=== PATIENT | male | born 1940 | race Caucasian/White ===

== ENCOUNTER 2021-02-16 10:04 | Inpatient (IN) | payer OTHER, SELFPAY ==
[2021-02-16] VITALS (31 sets, daily range): BP systolic 85–148; BP diastolic 50–78; PULSE 113–150; RESP 20–34; TEMP 37.3–39.1; O2SAT 93–97; BMI 27.1
--- NOTE | 2021-02-16 11:10 | DI.RAD.S_ITS ---
PROCEDURE: XR CHEST 1V INDICATIONS: Fever TECHNIQUE: One view of the chest was acquired. COMPARISON: None. FINDINGS: Surgical changes and devices: None. Lungs and pleura: Lungs are clear. No pleural effusions or pneumothorax. On bibasilar atelectasis and infiltrates greater on the left. Low lung volumes accentuate pulmonary interstitium and heart size. Mediastinum: Mediastinal contours appear normal. Heart size is normal. Bones and chest wall: No suspicious bony lesions. Overlying soft tissues appear unremarkable. IMPRESSION: Bibasilar atelectasis and or infiltrate greater on the left Approved by: Anmol Vasquez M.D. on 02/16/2021 at 11:53
[2021-02-16] MEDS: methylPREDNISolone 125 MG/2 ML VIAL IV (11:18)
[2021-02-16] MEDS: ACETAMINOPHEN 325 MG TABLET 975 MG PO (11:19)
--- NOTE | 2021-02-16 11:28 | ED.ALLEREA ---
HPI - Allergic Reaction <Winston Chavez MD - Last Filed: 02/27/21 07:05> General Chief complaint: Allergic Reaction Stated complaint: allergic reaction Time Seen by Provider: 02/16/21 10:31 Source: EMS Mode of arrival: EMS Limitations: altered mental status History of Present Illness HPI narrative: Patient brought in by ambulance from home. at bedside. Complains of fever and generalized hives and itching to the abdomen arms and face. Fever noted. No cough cold congestion. No nausea vomiting. Patient seen by urgent care this past Saturday for infection of the left ring finger. His ring has been removed by the urgent care this past Saturday. Over the weekend he states he has been packing would. Denies any skin injury or puncture wound to the skin. He did take a [employer] knife to the ring finger on Saturday to relieve some pressure. Seen by urgent care that day and started on Bactrim. Swelling has improved to the finger and hand. Today started with fever and itchy rash. Patient not toxic appearing. Benadryl 50 mg given prior to arrival by EMS. Related Data Home Medications Medication Instructions Recorded Confirmed amlodipine 5 mg tablet (Norvasc) 5 mg PO DAILY 02/16/21 02/16/21 lisinopril 20 mg tablet 20 mg PO DAILY 02/16/21 02/16/21 lovastatin 20 mg tablet 20 mg PO DAILY 02/16/21 02/16/21 metformin 500 mg tablet 500 mg PO BID 02/16/21 02/16/21 metoprolol tartrate 50 mg tablet 50 mg PO BID 02/16/21 02/16/21 Previous Rx's Medication Instructions Recorded aspirin 81 mg tablet,delayed 81 mg PO DAILY #90 tab 02/20/21 release dexamethasone 4 mg tablet 4 mg PO BIDWM #8 tab 02/20/21 doxycycline hyclate 100 mg tablet 100 mg PO BID #14 tab 02/20/21 famotidine 20 mg tablet (Pepcid AC) 20 mg PO BID #30 tab 02/20/21 insulin glargine 100 unit/mL (3 10 unit (0.1 mL) SUBCUT BID #1 ml 02/20/21 mL) subcutaneous pen (Lantus Solostar U-100 Insulin) insulin lispro 100 unit/mL 0 unit (0 mL) SUBCUT ACHS #1 ml 02/20/21 subcutaneous solution (Humalog U-100 Insulin) levofloxacin 250 mg tablet 750 mg PO Q24H #5 tab 02/20/21 melatonin 3 mg tablet 6 mg PO BEDTIME #90 tab 02/20/21 quetiapine 25 mg tablet 12.5 mg PO BEDTIME PRN #30 tab 02/20/21 trazodone 50 mg tablet 50 mg PO BEDTIME #90 tab 02/20/21 Allergies Allergy/AdvReac Type Severity Reaction Status Date / Time sulfamethoxazole Allergy Severe Hives Verified 02/16/21 10:56 [From Bactrim] trimethoprim [From Bactrim] Allergy Severe Hives Verified 02/16/21 10:56 Review of Systems <Winston Chavez MD - Last Filed: 02/27/21 07:05> Review of Systems Narrative: GENERAL: Denies chills, fatigue, malaise, positive fever, denies sweats. HEENT: Denies sinus pain, ear pain, sore throat RESPIRATORY: Denies dyspnea, cough CARDIOVASCULAR: Denies chest pain, palpitations GASTROINTESTINAL: Denies nausea, vomiting, abdominal pain : Denies dysuria, frequency, hematuria MUSCULOSKELETAL: Denies muscle or bony pain SKIN: Positive for right is and rash, benign skin lesions NEUROLOGIC: Denies weakness, numbness ROS Unobtainable: All systems reviewed & are unremarkable except as noted in HPI and below Patient History <Winston Chavez MD - Last Filed: 02/27/21 07:05> Social History household members: spouse Smoking Status: Former smoker alcohol intake: current Exam <Winston Chavez MD - Last Filed: 02/27/21 07:05> Narrative Exam Narrative: GENERAL: in no distress, not toxic not dyspneic HEAD: Normocephalic. EYES: Pupils equal round No scleral icterus. ENT: Mucous membranes moist. No drooling or tongue elevation NECK: Trachea midline. No stridor CARDIOVASCULAR: Regular rate and rhythm without murmurs, tachycardia RESPIRATORY: Clear to auscultation. Breath sounds equal bilaterally. No wheezes, rales, or rhonchi. Speaks full sentences GASTROINTESTINAL: Abdomen soft, non-tender EXTREMITIES: No gross deformities. Examination left hand. There is erythema and diffuse swelling of the ring finger. Able to flex and extend at the MCP/PIP and DIP joints. No pain out of proportion to exam. No volar tenderness to the finger. Able to fully extend the finger without pain. No red streaking to the hand. Mild edema to the dorsum of the hand. There is diffuse bruising ecchymosis to the finger. No necrotic tissue. No crepitus. BACK: No flank tenderness. NEURO: AOx4. SKIN: Warm and dry, there is diffuse hives on the abdomen and chest and arms. Face is erythematous. PSYCH: Not anxious, is cooperative Initial Vital Signs Initial Vital Signs: Vital Signs Temperature 102.3 F H 02/16/21 10:13 Pulse Rate 150 H 02/16/21 10:13 Respiratory Rate 20 02/16/21 10:13 Blood Pressure 116/63 02/16/21 10:13 Pulse Oximetry 96 02/16/21 10:13 <Mellisa Pruitt DO - Last Filed: 02/16/21 18:54> Initial Vital Signs Initial Vital Signs: Vital Signs Temperature 102.3 F H 02/16/21 10:13 Pulse Rate 150 H 02/16/21 10:13 Respiratory Rate 20 02/16/21 10:13 Blood Pressure 116/63 02/16/21 10:13 Pulse Oximetry 96 02/16/21 10:13 Course <Winston Chavez MD - Last Filed: 02/27/21 07:05> Course Course Narrative: 12:00 p.[address].. Sign out to Dr Pruitt, pt will need admit for IV antibiotics Orders Ordered: Discontinued Medications Acetaminophen (Acetaminophen 325 Mg Tablet) 975 mg PO NOW ONE Stop: 02/16/21 11:10 Last Admin: 02/16/21 11:19 Dose: 975 mg Documented by: ROLO Acetaminophen (Acetaminophen 325 Mg Tablet) 650 mg PO Q6HR PRN PRN Reason: Fever/Mild Pain (1-3) Last Admin: 02/18/21 00:27 Dose: 650 mg Documented by: Admin: 02/17/21 08:11 Dose: 650 mg Documented by: Admin: 02/17/21 00:29 Dose: 650 mg Documented by: Admin: 02/16/21 18:19 Dose: 650 mg Documented by: KARRI Aspirin (Aspirin Ec 81 Mg Tablet) 81 mg PO DAILY [facility] Last Admin: 02/20/21 08:19 Dose: 81 mg Documented by: LUIS Atorvastatin Calcium (Atorvastatin 20 Mg Tablet) 20 mg PO BEDTIME [facility] Dexamethasone (Dexamethasone 4 Mg Tablet) 4 mg PO BIDWM [facility] Diltiazem HCl (Diltiazem 5 Mg/Ml Sdv) 15 mg IV NOW ONE Stop: 02/17/21 09:19 Last Admin: 02/17/21 09:30 Dose: 15 mg Documented by: BRIAN Diphenhydramine HCl (Diphenhydramine 50 Mg/Ml Vial) 25 mg IV NOW ONE Stop: 02/16/21 14:07 Last Admin: 02/16/21 14:13 Dose: 25 mg Documented by: JIMI Doxycycline Hyclate (Doxycycline Hyclate 100 Mg Tablet) 100 mg PO BID [facility] Stop: 02/26/21 09:01 Last Admin: 02/20/21 08:20 Dose: 100 mg Documented by: Admin: 02/19/21 21:28 Dose: 100 mg Documented by: ROXANA Famotidine (Famotidine 20 Mg/2 Ml Vial) 20 mg IV DAILY [facility] Last Admin: 02/17/21 08:10 Dose: 20 mg Documented by: DANIEL Famotidine (Famotidine 20 Mg/2 Ml Vial) 20 mg IV BID [facility] Last Admin: 02/19/21 08:38 Dose: 20 mg Documented by: Admin: 02/18/21 20:43 Dose: 20 mg Documented by: Admin: 02/18/21 08:36 Dose: 20 mg Documented by: Admin: 02/17/21 19:21 Dose: Not Given Documented by: ADRIANA Famotidine (Famotidine 20 Mg/2 Ml Vial) 20 mg IV NOW ONE Stop: 02/17/21 19:01 Last Admin: 02/17/21 18:58 Dose: 20 mg Documented by: ADRIANA Famotidine (Famotidine 20 Mg Tablet) 20 mg PO BID [facility] Last Admin: 02/20/21 08:20 Dose: 20 mg Documented by: Admin: 02/19/21 21:29 Dose: 20 mg Documented by: ROXANA Furosemide (Furosemide 40 Mg/4 Ml Vial) 40 mg IV NOW ONE Stop: 02/17/21 09:00 Last Admin: 02/17/21 09:33 Dose: 40 mg Documented by: BRIAN Heparin Sodium (Porcine) (Heparin 5,000 Unit/Ml Vial) 5,000 unit SUBCUT Q8HR [facility] Last Admin: 02/20/21 05:18 Dose: 5,000 unit Documented by: Admin: 02/19/21 21:27 Dose: 5,000 unit Documented by: Admin: 02/19/21 16:32 Dose: 5,000 unit Documented by: Admin: 02/19/21 05:03 Dose: 5,000 unit Documented by: Admin: 02/18/21 20:46 Dose: 5,000 unit Documented by: Admin: 02/18/21 15:39 Dose: 5,000 unit Documented by: Admin: 02/18/21 06:22 Dose: 5,000 unit Documented by: Admin: 02/17/21 22:15 Dose: 5,000 unit Documented by: Admin: 02/17/21 15:35 Dose: 5,000 unit Documented by: Admin: 02/17/21 05:37 Dose: 5,000 unit Documented by: Admin: 02/16/21 21:17 Dose: 5,000 unit Documented by: DICK Vancomycin HCl/Dextrose (Vancomycin) 2,000 mg in 400 mls @ 200 mls/hr IV NOW ONE Stop: 02/16/21 13:21 Last Admin: 02/16/21 11:51 Dose: Not Given Documented by: ROLO Vancomycin HCl/Dextrose (Vancomycin) 1,500 mg in 300 mls @ 200 mls/hr IV NOW ONE Stop: 02/16/21 13:21 Last Infusion: 02/16/21 14:47 Dose: 0 mls/hr Documented by: Admin: 02/16/21 12:27 Dose: 200 mls/hr Documented by: ROLO Sodium Chloride (Normal Saline 0.9%) 1,000 mls @ 1,000 mls/hr IV BOLUS ONE Stop: 02/16/21 13:10 Last Infusion: 02/16/21 13:31 Dose: 0 mls/hr Documented by: Admin: 02/16/21 12:27 Dose: 1,000 mls/hr Documented by: ROLO Ceftriaxone Sodium 1,000 mg/ (Sodium Chloride) 100 mls @ 200 mls/hr IV NOW ONE Stop: 02/16/21 12:39 Last Infusion: 02/16/21 15:04 Dose: 0 mls/hr Documented by: Admin: 02/16/21 14:50 Dose: 200 mls/hr Documented by: JIMI Sodium Chloride (Normal Saline 0.9%) 2,721.54 mls @ 907.18 mls/hr 30 ml/kg infuse over 3 hr (2721.54 ml) IV NOW ONE Stop: 02/16/21 16:08 Last Infusion: 02/16/21 15:42 Dose: 0 mls/hr Documented by: Infusion: 02/16/21 15:05 Dose: 0 mls/hr Documented by: Admin: 02/16/21 13:24 Dose: 907.18 mls/hr Documented by: ROLO Lactated Ringer's (Lactated Ringers) 1,000 mls @ 125 mls/hr IV CONT [facility] Last Admin: 02/17/21 10:18 Dose: 125 mls/hr Documented by: Infusion: 02/17/21 09:30 Dose: 125 mls/hr Documented by: Admin: 02/17/21 01:30 Dose: 125 mls/hr Documented by: Infusion: 02/17/21 00:44 Dose: 125 mls/hr Documented by: Admin: 02/16/21 16:44 Dose: 125 mls/hr Documented by: KARRI Linezolid (Zyvox) 600 mg in 300 mls @ 600 mls/hr IV Q12H [facility] Last Infusion: 02/19/21 06:54 Dose: 0 mls/hr Documented by: Admin: 02/19/21 05:02 Dose: 600 mls/hr Documented by: Infusion: 02/18/21 20:32 Dose: 0 mls/hr Documented by: Admin: 02/18/21 16:49 Dose: 600 mls/hr Documented by: Infusion: 02/18/21 07:58 Dose: 0 mls/hr Documented by: Admin: 02/18/21 06:22 Dose: 600 mls/hr Documented by: Infusion: 02/17/21 20:13 Dose: 0 mls/hr Documented by: Admin: 02/17/21 18:57 Dose: 600 mls/hr Documented by: Infusion: 02/17/21 10:51 Dose: 0 mls/hr Documented by: Admin: 02/17/21 05:37 Dose: 600 mls/hr Documented by: Infusion: 02/16/21 20:38 Dose: 0 mls/hr Documented by: Admin: 02/16/21 18:09 Dose: 600 mls/hr Documented by: KARRI Ceftriaxone Sodium 1,000 mg/ (Sodium Chloride) 100 mls @ 200 mls/hr IV Q24H [facility] Last Infusion: 02/19/21 12:24 Dose: 0 mls/hr Documented by: Admin: 02/19/21 09:37 Dose: 200 mls/hr Documented by: Infusion: 02/18/21 15:39 Dose: 0 mls/hr Documented by: Admin: 02/18/21 09:50 Dose: 200 mls/hr Documented by: Infusion: 02/17/21 13:00 Dose: 0 mls/hr Documented by: Admin: 02/17/21 12:30 Dose: 200 mls/hr Documented by: ADRIANA Metronidazole (Flagyl) 500 mg in 100 mls @ 100 mls/hr IV Q8H [facility] Last Infusion: 02/19/21 12:24 Dose: 0 mls/hr Documented by: Admin: 02/19/21 08:36 Dose: 100 mls/hr Documented by: Infusion: 02/19/21 00:34 Dose: 0 mls/hr Documented by: Admin: 02/18/21 23:07 Dose: 100 mls/hr Documented by: Infusion: 02/18/21 16:53 Dose: 0 mls/hr Documented by: Admin: 02/18/21 15:38 Dose: 100 mls/hr Documented by: Infusion: 02/18/21 09:37 Dose: 0 mls/hr Documented by: Admin: 02/18/21 08:34 Dose: 100 mls/hr Documented by: Infusion: 02/18/21 01:57 Dose: 0 mls/hr Documented by: Admin: 02/18/21 00:21 Dose: 100 mls/hr Documented by: Infusion: 02/17/21 18:56 Dose: 0 mls/hr Documented by: Admin: 02/17/21 17:36 Dose: 100 mls/hr Documented by: Infusion: 02/17/21 10:19 Dose: 0 mls/hr Documented by: Admin: 02/17/21 08:10 Dose: 100 mls/hr Documented by: DANIEL Diltiazem HCl 125 mg/ Dextrose 125 mls @ 5 mls/hr IV TITRATE [facility]; Protocol Last Titration: 02/17/21 22:11 Dose: 0 mg/hr, 0 mls/hr Documented by: Titration: 02/17/21 20:14 Dose: 5 mg/hr, 5 mls/hr Documented by: Titration: 02/17/21 18:56 Dose: 12 mg/hr, 12 mls/hr Documented by: Titration: 02/17/21 10:11 Dose: 10 mg/hr, 10 mls/hr Documented by: NAJMAEWARIANNA Admin: 02/17/21 10:01 Dose: 5 mg/hr, 5 mls/hr Documented by: ADRIANA Lactated Ringer's (Lactated Ringers) 1,000 mls @ 100 mls/hr IV CONT [facility] Last Infusion: 02/19/21 08:45 Dose: 0 mls/hr Documented by: Admin: 02/19/21 03:38 Dose: 100 mls/hr Documented by: Infusion: 02/19/21 01:41 Dose: 100 mls/hr Documented by: Admin: 02/18/21 15:41 Dose: 100 mls/hr Documented by: Infusion: 02/18/21 15:41 Dose: 100 mls/hr Documented by: Admin: 02/18/21 06:22 Dose: 100 mls/hr Documented by: Infusion: 02/18/21 04:53 Dose: 100 mls/hr Documented by: Admin: 02/17/21 18:53 Dose: 100 mls/hr Documented by: ADRIANA Magnesium Sulfate (Magnesium Sulfate) 2 gm in 50 mls @ 25 mls/hr IV NOW ONE Stop: 02/17/21 22:20 Last Infusion: 02/17/21 22:51 Dose: 0 mls/hr Documented by: MACKENZIE Cosigned by: LISBETH Admin: 02/17/21 20:41 Dose: 25 mls/hr Documented by: MACKENZIE Mishra by: WOODY Insulin Glargine (Insulin Glargine 100 Unit/Ml 3ml Pen) 10 unit SUBCUT BID [facility] Last Admin: 02/20/21 08:20 Dose: 10 unit Documented by: LUIS Cosigned by: SCOOBY Admin: 02/19/21 21:23 Dose: 10 unit Documented by: ROXANA Plascenciaigned by: ASHISH Insulin Human Lispro (Insulin Lispro 100 Unit/Ml 3ml Vial) 0 unit SUBCUT ACHS [facility]; Protocol Last Admin: 02/20/21 08:18 Dose: 1 unit Documented by: LUIS Mishra by: SCOOBY Admin: 02/19/21 21:25 Dose: 1 unit Documented by: ROXANA Mishra by: ASHISH Admin: 02/19/21 16:33 Dose: 2 unit Documented by: LUIS Plascenciaigned by: CHLOE Admin: 02/19/21 12:25 Dose: 2 unit Documented by: LUIS Mishra by: CHLOE Admin: 02/19/21 08:35 Dose: 1 unit Documented by: LUIS Mishra by: CHLOE Admin: 02/18/21 20:43 Dose: 1 unit Documented by: ROXANA Mishra by: ASHISH Admin: 02/18/21 16:47 Dose: 3 unit Documented by: LUIS Mishra by: CHLOE Admin: 02/18/21 11:58 Dose: 2 unit Documented by: LUIS Mishra by: CHLOE Admin: 02/18/21 09:45 Dose: 2 unit Documented by: LUIS Mishra by: CHLOE Admin: 02/17/21 20:42 Dose: 2 unit Documented by: MACKENZIE Cosigned by: WOODY Admin: 02/17/21 17:37 Dose: 3 unit Documented by: ADRIANA Cosigned by: YANETH Admin: 02/17/21 12:18 Dose: 2 unit Documented by: ADRIANA Cosigned by: YANETH Admin: 02/17/21 08:11 Dose: 2 unit Documented by: DANIEL Cosigned by: TATIANA Admin: 02/16/21 20:36 Dose: 2 unit Documented by: DICK Cosigned by: ED Admin: 02/16/21 17:41 Dose: 2 unit Documented by: KARRI Cosigned by: TOM Labetalol HCl (Labetalol 20 Mg/4 Ml Syringe) 10 mg IV NOW ONE Stop: 02/16/21 18:49 Last Admin: 02/16/21 18:58 Dose: 10 mg Documented by: KARRI Levofloxacin (Levofloxacin 250 Mg Tablet) 750 mg PO Q24H [facility] Stop: 02/25/21 15:01 Last Admin: 02/19/21 16:33 Dose: 750 mg Documented by: LUIS Lisinopril (Lisinopril 5 Mg Tablet) 5 mg PO DAILY [facility] Last Admin: 02/20/21 08:20 Dose: 5 mg Documented by: LUIS Lorazepam (Lorazepam 0.5 Mg Tablet) 0.5 mg PO BID [facility] Last Admin: 02/20/21 08:20 Dose: 0.5 mg Documented by: Admin: 02/19/21 21:29 Dose: 0.5 mg Documented by: Admin: 02/19/21 09:37 Dose: 0.5 mg Documented by: Admin: 02/18/21 20:47 Dose: 0.5 mg Documented by: Admin: 02/18/21 11:19 Dose: Not Given Documented by: Admin: 02/17/21 20:41 Dose: 0.5 mg Documented by: Admin: 02/17/21 12:30 Dose: 0.5 mg Documented by: ADRIANA Magnesium Chloride (Magnesium Chloride 64 Mg Tablet) 128 mg PO NOW ONE Stop: 02/17/21 17:24 Last Admin: 02/17/21 17:36 Dose: 128 mg Documented by: ADRIANA Melatonin (Melatonin 3 Mg Tablet) 6 mg PO BEDTIME [facility] Last Admin: 02/19/21 21:28 Dose: 6 mg Documented by: ROXANA Methylprednisolone (Methylprednisolone 125 Mg/2 Ml Vial) 125 mg IV NOW ONE Stop: 02/16/21 11:10 Last Admin: 02/16/21 11:18 Dose: 125 mg Documented by: ROLO Methylprednisolone (Methylprednisolone 125 Mg/2 Ml Vial) 125 mg IV DAILY [facility] Last Admin: 02/17/21 08:10 Dose: 125 mg Documented by: DANIEL Methylprednisolone (Methylprednisolone 125 Mg/2 Ml Vial) 125 mg IV NOW ONE Stop: 02/17/21 09:00 Last Admin: 02/17/21 10:22 Dose: 125 mg Documented by: ADRIANA Methylprednisolone (Methylprednisolone 125 Mg/2 Ml Vial) 250 mg IV DAILY [facility] Stop: 02/20/21 08:59 Last Admin: 02/19/21 08:36 Dose: 250 mg Documented by: Admin: 02/18/21 08:35 Dose: 250 mg Documented by: LUIS Metoprolol Succinate (Metoprolol Er 25 Mg Tablet) 25 mg PO NOW ONE Stop: 02/16/21 17:49 Last Admin: 02/16/21 18:09 Dose: 25 mg Documented by: KARRI Metoprolol Tartrate (Metoprolol Ir 50 Mg Tablet) 50 mg PO BID [facility] Last Admin: 02/20/21 08:19 Dose: 50 mg Documented by: Admin: 02/19/21 21:28 Dose: 50 mg Documented by: Admin: 02/19/21 09:37 Dose: 50 mg Documented by: Admin: 02/18/21 20:47 Dose: 50 mg Documented by: Admin: 02/18/21 11:58 Dose: 50 mg Documented by: Admin: 02/17/21 20:41 Dose: 50 mg Documented by: MACKENZIE Ondansetron HCl (Ondansetron 4 Mg/2 Ml Inj) 4 mg IV Q6HR PRN PRN Reason: Nausea And Vomiting Last Admin: 02/18/21 12:47 Dose: 4 mg Documented by: CHLOE Quetiapine Fumarate (Quetiapine 25 Mg Tablet) 12.5 mg PO BEDTIME PRN PRN Reason: Sleep Sodium Chloride (Sodium Chloride 0.9% Flush) 10 ml IV PRN PRN PRN Reason: Flush Sodium Chloride (Sodium Chloride 0.9% Flush) 10 ml IV BID [facility] Last Admin: 02/20/21 08:21 Dose: 10 ml Documented by: Admin: 02/19/21 21:29 Dose: 10 ml Documented by: Admin: 02/19/21 08:39 Dose: 10 ml Documented by: Admin: 02/18/21 20:47 Dose: 10 ml Documented by: Admin: 02/18/21 08:32 Dose: Not Given Documented by: Admin: 02/17/21 20:52 Dose: Not Given Documented by: Admin: 02/17/21 10:01 Dose: Not Given Documented by: Admin: 02/16/21 21:24 Dose: 10 ml Documented by: DICK Trazodone HCl (Trazodone 50 Mg Tablet) 50 mg PO BEDTIME [facility] Last Admin: 02/19/21 21:28 Dose: 50 mg Documented by: ROXANA Vancomycin HCl (Vancomycin Per Pharmacy) 1 request [facility] NOW ONE Stop: 02/16/21 11:11 Last Admin: 02/16/21 11:36 Dose: 1 request Documented by: ROLO Zolpidem Tartrate (Zolpidem 5 Mg Tablet) 10 mg PO BEDTIME PRN PRN Reason: Sleep Last Admin: 02/18/21 23:07 Dose: 10 mg Documented by: Admin: 02/18/21 02:16 Dose: 10 mg Documented by: MACKENZIE Vital Signs Vital signs: Vital Signs - 8 hr 02/16/21 11:00 02/16/21 11:19 02/16/21 11:30 Temperature 101.8 F H Pulse Rate 144 H 147 H Respiratory Rate 26 H 28 H Blood Pressure 112/68 133/58 L Pulse Oximetry 96 96 02/16/21 12:00 02/16/21 12:01 02/16/21 12:27 Temperature 99.2 F Pulse Rate 147 H 149 H Respiratory Rate 33 H 34 H Blood Pressure 106/66 Pulse Oximetry 95 95 02/16/21 12:30 02/16/21 13:03 02/16/21 13:05 Temperature Pulse Rate 130 H 134 H 130 H Respiratory Rate 22 24 24 Blood Pressure 126/69 86/50 L 85/55 L Pulse Oximetry 95 94 95 02/16/21 13:06 02/16/21 13:20 02/16/21 13:30 Temperature Pulse Rate 130 H 117 H 114 H Respiratory Rate 24 27 H 26 H Blood Pressure 88/56 L 91/54 L 87/52 L Pulse Oximetry 94 95 94 02/16/21 13:40 02/16/21 13:50 02/16/21 14:00 Temperature Pulse Rate 113 H 115 H 116 H Respiratory Rate 24 29 H 28 H Blood Pressure 91/53 L 122/64 119/59 L Pulse Oximetry 93 96 97 02/16/21 14:10 02/16/21 14:20 02/16/21 14:30 Temperature Pulse Rate 115 H 120 H 120 H Respiratory Rate 28 H Blood Pressure 120/63 125/60 96/60 Pulse Oximetry 95 95 02/16/21 14:41 02/16/21 14:50 Temperature Pulse Rate 119 H 120 H Respiratory Rate 26 H 20 Blood Pressure 137/60 129/59 L Pulse Oximetry 95 94 <Mellisa Pruitt, - Last Filed: 02/16/21 18:54> Orders Ordered: Discontinued Medications Acetaminophen (Acetaminophen 325 Mg Tablet) 975 mg PO NOW ONE Stop: 02/16/21 11:10 Last Admin: 02/16/21 11:19 Dose: 975 mg Documented by: ROLO Acetaminophen (Acetaminophen 325 Mg Tablet) 650 mg PO Q6HR PRN PRN Reason: Fever/Mild Pain (1-3) Last Admin: 02/18/21 00:27 Dose: 650 mg Documented by: Admin: 02/17/21 08:11 Dose: 650 mg Documented by: Admin: 02/17/21 00:29 Dose: 650 mg Documented by: Admin: 02/16/21 18:19 Dose: 650 mg Documented by: KARRI Aspirin (Aspirin Ec 81 Mg Tablet) 81 mg PO DAILY [facility] Last Admin: 02/20/21 08:19 Dose: 81 mg Documented by: LUIS Atorvastatin Calcium (Atorvastatin 20 Mg Tablet) 20 mg PO BEDTIME [facility] Dexamethasone (Dexamethasone 4 Mg Tablet) 4 mg PO BIDWM [facility] Diltiazem HCl (Diltiazem 5 Mg/Ml Sdv) 15 mg IV NOW ONE Stop: 02/17/21 09:19 Last Admin: 02/17/21 09:30 Dose: 15 mg Documented by: BRIAN Diphenhydramine HCl (Diphenhydramine 50 Mg/Ml Vial) 25 mg IV NOW ONE Stop: 02/16/21 14:07 Last Admin: 02/16/21 14:13 Dose: 25 mg Documented by: JIMI Doxycycline Hyclate (Doxycycline Hyclate 100 Mg Tablet) 100 mg PO BID [facility] Stop: 02/26/21 09:01 Last Admin: 02/20/21 08:20 Dose: 100 mg Documented by: Admin: 02/19/21 21:28 Dose: 100 mg Documented by: ROXANA Famotidine (Famotidine 20 Mg/2 Ml Vial) 20 mg IV DAILY [facility] Last Admin: 02/17/21 08:10 Dose: 20 mg Documented by: DANIEL Famotidine (Famotidine 20 Mg/2 Ml Vial) 20 mg IV BID [facility] Last Admin: 02/19/21 08:38 Dose: 20 mg Documented by: Admin: 02/18/21 20:43 Dose: 20 mg Documented by: Admin: 02/18/21 08:36 Dose: 20 mg Documented by: Admin: 02/17/21 19:21 Dose: Not Given Documented by: ADRIANA Famotidine (Famotidine 20 Mg/2 Ml Vial) 20 mg IV NOW ONE Stop: 02/17/21 19:01 Last Admin: 02/17/21 18:58 Dose: 20 mg Documented by: ADRIANA Famotidine (Famotidine 20 Mg Tablet) 20 mg PO BID [facility] Last Admin: 02/20/21 08:20 Dose: 20 mg Documented by: Admin: 02/19/21 21:29 Dose: 20 mg Documented by: ROXANA Furosemide (Furosemide 40 Mg/4 Ml Vial) 40 mg IV NOW ONE Stop: 02/17/21 09:00 Last Admin: 02/17/21 09:33 Dose: 40 mg Documented by: BRIAN Heparin Sodium (Porcine) (Heparin 5,000 Unit/Ml Vial) 5,000 unit SUBCUT Q8HR [facility] Last Admin: 02/20/21 05:18 Dose: 5,000 unit Documented by: Admin: 02/19/21 21:27 Dose: 5,000 unit Documented by: Admin: 02/19/21 16:32 Dose: 5,000 unit Documented by: Admin: 02/19/21 05:03 Dose: 5,000 unit Documented by: Admin: 02/18/21 20:46 Dose: 5,000 unit Documented by: Admin: 02/18/21 15:39 Dose: 5,000 unit Documented by: Admin: 02/18/21 06:22 Dose: 5,000 unit Documented by: Admin: 02/17/21 22:15 Dose: 5,000 unit Documented by: Admin: 02/17/21 15:35 Dose: 5,000 unit Documented by: Admin: 02/17/21 05:37 Dose: 5,000 unit Documented by: Admin: 02/16/21 21:17 Dose: 5,000 unit Documented by: DICK Vancomycin HCl/Dextrose (Vancomycin) 2,000 mg in 400 mls @ 200 mls/hr IV NOW ONE Stop: 02/16/21 13:21 Last Admin: 02/16/21 11:51 Dose: Not Given Documented by: ROLO Vancomycin HCl/Dextrose (Vancomycin) 1,500 mg in 300 mls @ 200 mls/hr IV NOW ONE Stop: 02/16/21 13:21 Last Infusion: 02/16/21 14:47 Dose: 0 mls/hr Documented by: Admin: 02/16/21 12:27 Dose: 200 mls/hr Documented by: ROLO Sodium Chloride (Normal Saline 0.9%) 1,000 mls @ 1,000 mls/hr IV BOLUS ONE Stop: 02/16/21 13:10 Last Infusion: 02/16/21 13:31 Dose: 0 mls/hr Documented by: Admin: 02/16/21 12:27 Dose: 1,000 mls/hr Documented by: ROLO Ceftriaxone Sodium 1,000 mg/ (Sodium Chloride) 100 mls @ 200 mls/hr IV NOW ONE Stop: 02/16/21 12:39 Last Infusion: 02/16/21 15:04 Dose: 0 mls/hr Documented by: Admin: 02/16/21 14:50 Dose: 200 mls/hr Documented by: JIMI Sodium Chloride (Normal Saline 0.9%) 2,721.54 mls @ 907.18 mls/hr 30 ml/kg infuse over 3 hr (2721.54 ml) IV NOW ONE Stop: 02/16/21 16:08 Last Infusion: 02/16/21 15:42 Dose: 0 mls/hr Documented by: Infusion: 02/16/21 15:05 Dose: 0 mls/hr Documented by: Admin: 02/16/21 13:24 Dose: 907.18 mls/hr Documented by: ROLO Lactated Ringer's (Lactated Ringers) 1,000 mls @ 125 mls/hr IV CONT MAURY Last Admin: 02/17/21 10:18 Dose: 125 mls/hr Documented by: Infusion: 02/17/21 09:30 Dose: 125 mls/hr Documented by: Admin: 02/17/21 01:30 Dose: 125 mls/hr Documented by: Infusion: 02/17/21 00:44 Dose: 125 mls/hr Documented by: Admin: 02/16/21 16:44 Dose: 125 mls/hr Documented by: KARRI Linezolid (Zyvox) 600 mg in 300 mls @ 600 mls/hr IV Q12H [facility] Last Infusion: 02/19/21 06:54 Dose: 0 mls/hr Documented by: Admin: 02/19/21 05:02 Dose: 600 mls/hr Documented by: Infusion: 02/18/21 20:32 Dose: 0 mls/hr Documented by: Admin: 02/18/21 16:49 Dose: 600 mls/hr Documented by: Infusion: 02/18/21 07:58 Dose: 0 mls/hr Documented by: Admin: 02/18/21 06:22 Dose: 600 mls/hr Documented by: Infusion: 02/17/21 20:13 Dose: 0 mls/hr Documented by: Admin: 02/17/21 18:57 Dose: 600 mls/hr Documented by: Infusion: 02/17/21 10:51 Dose: 0 mls/hr Documented by: Admin: 02/17/21 05:37 Dose: 600 mls/hr Documented by: Infusion: 02/16/21 20:38 Dose: 0 mls/hr Documented by: Admin: 02/16/21 18:09 Dose: 600 mls/hr Documented by: KARRI Ceftriaxone Sodium 1,000 mg/ (Sodium Chloride) 100 mls @ 200 mls/hr IV Q24H [facility] Last Infusion: 02/19/21 12:24 Dose: 0 mls/hr Documented by: Admin: 02/19/21 09:37 Dose: 200 mls/hr Documented by: Infusion: 02/18/21 15:39 Dose: 0 mls/hr Documented by: Admin: 02/18/21 09:50 Dose: 200 mls/hr Documented by: Infusion: 02/17/21 13:00 Dose: 0 mls/hr Documented by: Admin: 02/17/21 12:30 Dose: 200 mls/hr Documented by: ADRIANA Metronidazole (Flagyl) 500 mg in 100 mls @ 100 mls/hr IV Q8H [facility] Last Infusion: 02/19/21 12:24 Dose: 0 mls/hr Documented by: Admin: 02/19/21 08:36 Dose: 100 mls/hr Documented by: Infusion: 02/19/21 00:34 Dose: 0 mls/hr Documented by: Admin: 02/18/21 23:07 Dose: 100 mls/hr Documented by: Infusion: 02/18/21 16:53 Dose: 0 mls/hr Documented by: Admin: 02/18/21 15:38 Dose: 100 mls/hr Documented by: Infusion: 02/18/21 09:37 Dose: 0 mls/hr Documented by: Admin: 02/18/21 08:34 Dose: 100 mls/hr Documented by: Infusion: 02/18/21 01:57 Dose: 0 mls/hr Documented by: Admin: 02/18/21 00:21 Dose: 100 mls/hr Documented by: Infusion: 02/17/21 18:56 Dose: 0 mls/hr Documented by: Admin: 02/17/21 17:36 Dose: 100 mls/hr Documented by: Infusion: 02/17/21 10:19 Dose: 0 mls/hr Documented by: Admin: 02/17/21 08:10 Dose: 100 mls/hr Documented by: DANIEL Diltiazem HCl 125 mg/ Dextrose 125 mls @ 5 mls/hr IV TITRATE [facility]; Protocol Last Titration: 02/17/21 22:11 Dose: 0 mg/hr, 0 mls/hr Documented by: Titration: 02/17/21 20:14 Dose: 5 mg/hr, 5 mls/hr Documented by: Titration: 02/17/21 18:56 Dose: 12 mg/hr, 12 mls/hr Documented by: Titration: 02/17/21 10:11 Dose: 10 mg/hr, 10 mls/hr Documented by: Admin: 02/17/21 10:01 Dose: 5 mg/hr, 5 mls/hr Documented by: ADRIANA Lactated Ringer's (Lactated Ringers) 1,000 mls @ 100 mls/hr IV CONT [facility] Last Infusion: 02/19/21 08:45 Dose: 0 mls/hr Documented by: Admin: 02/19/21 03:38 Dose: 100 mls/hr Documented by: Infusion: 02/19/21 01:41 Dose: 100 mls/hr Documented by: Admin: 02/18/21 15:41 Dose: 100 mls/hr Documented by: Infusion: 02/18/21 15:41 Dose: 100 mls/hr Documented by: Admin: 02/18/21 06:22 Dose: 100 mls/hr Documented by: Infusion: 02/18/21 04:53 Dose: 100 mls/hr Documented by: Admin: 02/17/21 18:53 Dose: 100 mls/hr Documented by: ADRIANA Magnesium Sulfate (Magnesium Sulfate) 2 gm in 50 mls @ 25 mls/hr IV NOW ONE Stop: 02/17/21 22:20 Last Infusion: 02/17/21 22:51 Dose: 0 mls/hr Documented by: MACKENZIE Cosigned by: LISBETH Admin: 02/17/21 20:41 Dose: 25 mls/hr Documented by: MACKENZIE Cosigned by: WOODY Insulin Glargine (Insulin Glargine 100 Unit/Ml 3ml Pen) 10 unit SUBCUT BID [facility] Last Admin: 02/20/21 08:20 Dose: 10 unit Documented by: LUIS Cosigned by: SCOOBY Admin: 02/19/21 21:23 Dose: 10 unit Documented by: ROXANA Cosigned by: ASHIHS Insulin Human Lispro (Insulin Lispro 100 Unit/Ml 3ml Vial) 0 unit SUBCUT ACHS [facility]; Protocol Last Admin: 02/20/21 08:18 Dose: 1 unit Documented by: LUIS Cosigned by: SCOOBY Admin: 02/19/21 21:25 Dose: 1 unit Documented by: ROXANA Cosigned by: ASHISH Admin: 02/19/21 16:33 Dose: 2 unit Documented by: LUIS Cosigned by: CHLOE Admin: 02/19/21 12:25 Dose: 2 unit Documented by: LUIS Cosigned by: CHLOE Admin: 02/19/21 08:35 Dose: 1 unit Documented by: LUIS Cosigned by: CHLOE Admin: 02/18/21 20:43 Dose: 1 unit Documented by: ROXANA Cosigned by: ASHISH Admin: 02/18/21 16:47 Dose: 3 unit Documented by: LUIS Cosigned by: CHLOE Admin: 02/18/21 11:58 Dose: 2 unit Documented by: LUIS Cosigned by: CHLOE Admin: 02/18/21 09:45 Dose: 2 unit Documented by: LUIS Cosigned by: CHLOE Admin: 02/17/21 20:42 Dose: 2 unit Documented by: MACKENZIE Cosigned by: WOODY Admin: 02/17/21 17:37 Dose: 3 unit Documented by: ADRIANA Cosigned by: YANETH Admin: 02/17/21 12:18 Dose: 2 unit Documented by: ADRIANA Cosigned by: YANETH Admin: 02/17/21 08:11 Dose: 2 unit Documented by: DANIEL Cosigned by: TATIANA Admin: 02/16/21 20:36 Dose: 2 unit Documented by: DICK Cosigned by: ED Admin: 02/16/21 17:41 Dose: 2 unit Documented by: KARRI Cosigned by: TOM Labetalol HCl (Labetalol 20 Mg/4 Ml Syringe) 10 mg IV NOW ONE Stop: 02/16/21 18:49 Last Admin: 02/16/21 18:58 Dose: 10 mg Documented by: KARRI Levofloxacin (Levofloxacin 250 Mg Tablet) 750 mg PO Q24H [facility] Stop: 02/25/21 15:01 Last Admin: 02/19/21 16:33 Dose: 750 mg Documented by: LUIS Lisinopril (Lisinopril 5 Mg Tablet) 5 mg PO DAILY [facility] Last Admin: 02/20/21 08:20 Dose: 5 mg Documented by: LUIS Lorazepam (Lorazepam 0.5 Mg Tablet) 0.5 mg PO BID [facility] Last Admin: 02/20/21 08:20 Dose: 0.5 mg Documented by: Admin: 02/19/21 21:29 Dose: 0.5 mg Documented by: Admin: 02/19/21 09:37 Dose: 0.5 mg Documented by: Admin: 02/18/21 20:47 Dose: 0.5 mg Documented by: Admin: 02/18/21 11:19 Dose: Not Given Documented by: Admin: 02/17/21 20:41 Dose: 0.5 mg Documented by: Admin: 02/17/21 12:30 Dose: 0.5 mg Documented by: ADRIANA Magnesium Chloride (Magnesium Chloride 64 Mg Tablet) 128 mg PO NOW ONE Stop: 02/17/21 17:24 Last Admin: 02/17/21 17:36 Dose: 128 mg Documented by: ADRIANA Melatonin (Melatonin 3 Mg Tablet) 6 mg PO BEDTIME [facility] Last Admin: 02/19/21 21:28 Dose: 6 mg Documented by: ROXANA Methylprednisolone (Methylprednisolone 125 Mg/2 Ml Vial) 125 mg IV NOW ONE Stop: 02/16/21 11:10 Last Admin: 02/16/21 11:18 Dose: 125 mg Documented by: ROLO Methylprednisolone (Methylprednisolone 125 Mg/2 Ml Vial) 125 mg IV DAILY [facility] Last Admin: 02/17/21 08:10 Dose: 125 mg Documented by: GPARLENE Methylprednisolone (Methylprednisolone 125 Mg/2 Ml Vial) 125 mg IV NOW ONE Stop: 02/17/21 09:00 Last Admin: 02/17/21 10:22 Dose: 125 mg Documented by: ADRIANA Methylprednisolone (Methylprednisolone 125 Mg/2 Ml Vial) 250 mg IV DAILY [facility] Stop: 02/20/21 08:59 Last Admin: 02/19/21 08:36 Dose: 250 mg Documented by: Admin: 02/18/21 08:35 Dose: 250 mg Documented by: LUIS Metoprolol Succinate (Metoprolol Er 25 Mg Tablet) 25 mg PO NOW ONE Stop: 02/16/21 17:49 Last Admin: 02/16/21 18:09 Dose: 25 mg Documented by: KARRI Metoprolol Tartrate (Metoprolol Ir 50 Mg Tablet) 50 mg PO BID [facility] Last Admin: 02/20/21 08:19 Dose: 50 mg Documented by: Admin: 02/19/21 21:28 Dose: 50 mg Documented by: Admin: 02/19/21 09:37 Dose: 50 mg Documented by: Admin: 02/18/21 20:47 Dose: 50 mg Documented by: Admin: 02/18/21 11:58 Dose: 50 mg Documented by: Admin: 02/17/21 20:41 Dose: 50 mg Documented by: MACKENZIE Ondansetron HCl (Ondansetron 4 Mg/2 Ml Inj) 4 mg IV Q6HR PRN PRN Reason: Nausea And Vomiting Last Admin: 02/18/21 12:47 Dose: 4 mg Documented by: CHLOE Quetiapine Fumarate (Quetiapine 25 Mg Tablet) 12.5 mg PO BEDTIME PRN PRN Reason: Sleep Sodium Chloride (Sodium Chloride 0.9% Flush) 10 ml IV PRN PRN PRN Reason: Flush Sodium Chloride (Sodium Chloride 0.9% Flush) 10 ml IV BID [facility] Last Admin: 02/20/21 08:21 Dose: 10 ml Documented by: Admin: 02/19/21 21:29 Dose: 10 ml Documented by: Admin: 02/19/21 08:39 Dose: 10 ml Documented by: Admin: 02/18/21 20:47 Dose: 10 ml Documented by: Admin: 02/18/21 08:32 Dose: Not Given Documented by: Admin: 02/17/21 20:52 Dose: Not Given Documented by: Admin: 02/17/21 10:01 Dose: Not Given Documented by: Admin: 02/16/21 21:24 Dose: 10 ml Documented by: DICK Trazodone HCl (Trazodone 50 Mg Tablet) 50 mg PO BEDTIME [facility] Last Admin: 02/19/21 21:28 Dose: 50 mg Documented by: ROXANA Vancomycin HCl (Vancomycin Per Pharmacy) 1 request MISC NOW ONE Stop: 02/16/21 11:11 Last Admin: 02/16/21 11:36 Dose: 1 request Documented by: ROLO Zolpidem Tartrate (Zolpidem 5 Mg Tablet) 10 mg PO BEDTIME PRN PRN Reason: Sleep Last Admin: 02/18/21 23:07 Dose: 10 mg Documented by: Admin: 02/18/21 02:16 Dose: 10 mg Documented by: MACKENZIE Vital Signs Vital signs: Vital Signs - 8 hr 02/16/21 11:00 02/16/21 11:19 02/16/21 11:30 Temperature 101.8 F H Pulse Rate 144 H 147 H Respiratory Rate 26 H 28 H Blood Pressure 112/68 133/58 L Pulse Oximetry 96 96 02/16/21 12:00 02/16/21 12:01 02/16/21 12:27 Temperature 99.2 F Pulse Rate 147 H 149 H Respiratory Rate 33 H 34 H Blood Pressure 106/66 Pulse Oximetry 95 95 02/16/21 12:30 02/16/21 13:03 02/16/21 13:05 Temperature Pulse Rate 130 H 134 H 130 H Respiratory Rate 22 24 24 Blood Pressure 126/69 86/50 L 85/55 L Pulse Oximetry 95 94 95 02/16/21 13:06 02/16/21 13:20 02/16/21 13:30 Temperature Pulse Rate 130 H 117 H 114 H Respiratory Rate 24 27 H 26 H Blood Pressure 88/56 L 91/54 L 87/52 L Pulse Oximetry 94 95 94 02/16/21 13:40 02/16/21 13:50 02/16/21 14:00 Temperature Pulse Rate 113 H 115 H 116 H Respiratory Rate 24 29 H 28 H Blood Pressure 91/53 L 122/64 119/59 L Pulse Oximetry 93 96 97 02/16/21 14:10 02/16/21 14:20 02/16/21 14:30 Temperature Pulse Rate 115 H 120 H 120 H Respiratory Rate 28 H Blood Pressure 120/63 125/60 96/60 Pulse Oximetry 95 95 02/16/21 14:41 02/16/21 14:50 Temperature Pulse Rate 119 H 120 H Respiratory Rate 26 H 20 Blood Pressure 137/60 129/59 L Pulse Oximetry 95 94 MDM - Allergic Reaction <Winston Chavez MD - Last Filed: 02/27/21 07:05> Lab Data Result diagrams: 02/19/21 05:45 02/19/21 05:45 Labs: Lab Results 02/16/21 02/16/21 02/16/21 Range/Units 11:00 11:27 11:27 WBC 10.8 (4.5-11.0) X10^3/uL RBC 3.98 L (4.5-5.9) X10^6/uL Hgb 13.1 L (13.5-17.5) g/dL Hct 38.8 L (41-53) % MCV 97.7 (80-100) fL MCH 32.9 (26-34) PG MCHC 33.7 (30-36) % RDW 13.6 (11.6-14.8) % Plt Count 119 L (150-400) X10^3/uL Neut % (Auto) 94.9 H (50-75) % Lymph % (Auto) 1.3 L (25-40) % [place] % (Auto) 2.7 L (3-14) % Eos % (Auto) 0.5 L (2-4) % Baso % (Auto) 0.6 (0-2) % Neut # (Auto) 46285 H (6417-8966) /uL Lymph # (Auto) 100 L (0455-6853) /uL [place] # (Auto) 300 (0-900) /uL Eos # (Auto) 100 (0-450) /uL Baso # (Auto) 100 (0-100) /uL Sodium 133 L (137-145) mmol/L Potassium 4.0 (3.4-5.1) mmol/L Chloride 97 L (98-107) mmol/L Carbon Dioxide 24 (22-32) mmol/L BUN 26 H (9-20) mg/dL Creatinine 1.83 H (0.66-1.25) mg/dL Estimated GFR 36.0 L (>60) mL/min BUN/Creatinine Ratio 14.2 (6-22) Glucose 250 H (80-110) mg/dL Lactate (0.7-2.1) mmol/L Calcium 9.0 (8.4-10.2) mg/dL Total Bilirubin 0.7 (0.2-1.3) mg/dL AST 37 (17-59) IU/L ALT 21 (<50) IU/L Alkaline Phosphatase 40 (38-126) U/L Total Protein 7.3 (6.3-8.2) g/dL Albumin 4.2 (3.5-5.0) g/dL Globulin 3.1 (1.7-4.1) g/dL Albumin/Globulin Ratio 1.4 (1.0-2.8) Procalcitonin (<0.5) ng/mL SARS-CoV-2 (PCR) Negative (Negative) 02/16/21 02/16/21 02/16/21 Range/Units 11:27 11:27 14:09 WBC (4.5-11.0) X10^3/uL RBC (4.5-5.9) X10^6/uL Hgb (13.5-17.5) g/dL Hct (41-53) % MCV (80-100) fL MCH (26-34) PG MCHC (30-36) % RDW (11.6-14.8) % Plt Count (150-400) X10^3/uL Neut % (Auto) (50-75) % Lymph % (Auto) (25-40) % [place] % (Auto) (3-14) % Eos % (Auto) (2-4) % Baso % (Auto) (0-2) % Neut # (Auto) (2523-4981) /uL Lymph # (Auto) (9544-4888) /uL [place] # (Auto) (0-900) /uL Eos # (Auto) (0-450) /uL Baso # (Auto) (0-100) /uL Sodium (137-145) mmol/L Potassium (3.4-5.1) mmol/L Chloride (98-107) mmol/L Carbon Dioxide (22-32) mmol/L BUN (9-20) mg/dL Creatinine (0.66-1.25) mg/dL Estimated GFR (>60) mL/min BUN/Creatinine Ratio (6-22) Glucose (80-110) mg/dL Lactate 3.0 H 2.0 (0.7-2.1) mmol/L Calcium (8.4-10.2) mg/dL Total Bilirubin (0.2-1.3) mg/dL AST (17-59) IU/L ALT (<50) IU/L Alkaline Phosphatase (38-126) U/L Total Protein (6.3-8.2) g/dL Albumin (3.5-5.0) g/dL Globulin (1.7-4.1) g/dL Albumin/Globulin Ratio (1.0-2.8) Procalcitonin 1.90 H (<0.5) ng/mL SARS-CoV-2 (PCR) (Negative) <Mellisa Pruitt, DO - Last Filed: 02/16/21 18:54> Lab Data Labs: Lab Results 02/16/21 02/16/21 02/16/21 Range/Units 11:00 11:27 11:27 WBC 10.8 (4.5-11.0) X10^3/uL RBC 3.98 L (4.5-5.9) X10^6/uL Hgb 13.1 L (13.5-17.5) g/dL Hct 38.8 L (41-53) % MCV 97.7 (80-100) fL MCH 32.9 (26-34) PG MCHC 33.7 (30-36) % RDW 13.6 (11.6-14.8) % Plt Count 119 L (150-400) X10^3/uL Neut % (Auto) 94.9 H (50-75) % Lymph % (Auto) 1.3 L (25-40) % [place] % (Auto) 2.7 L (3-14) % Eos % (Auto) 0.5 L (2-4) % Baso % (Auto) 0.6 (0-2) % Neut # (Auto) 72549 H (7177-3487) /uL Lymph # (Auto) 100 L (8106-0165) /uL [place] # (Auto) 300 (0-900) /uL Eos # (Auto) 100 (0-450) /uL Baso # (Auto) 100 (0-100) /uL Sodium 133 L (137-145) mmol/L Potassium 4.0 (3.4-5.1) mmol/L Chloride 97 L (98-107) mmol/L Carbon Dioxide 24 (22-32) mmol/L BUN 26 H (9-20) mg/dL Creatinine 1.83 H (0.66-1.25) mg/dL Estimated GFR 36.0 L (>60) mL/min BUN/Creatinine Ratio 14.2 (6-22) Glucose 250 H (80-110) mg/dL Lactate (0.7-2.1) mmol/L Calcium 9.0 (8.4-10.2) mg/dL Total Bilirubin 0.7 (0.2-1.3) mg/dL AST 37 (17-59) IU/L ALT 21 (<50) IU/L Alkaline Phosphatase 40 (38-126) U/L Total Protein 7.3 (6.3-8.2) g/dL Albumin 4.2 (3.5-5.0) g/dL Globulin 3.1 (1.7-4.1) g/dL Albumin/Globulin Ratio 1.4 (1.0-2.8) Procalcitonin (<0.5) ng/mL SARS-CoV-2 (PCR) Negative (Negative) 02/16/21 02/16/21 02/16/21 Range/Units 11:27 11:27 14:09 WBC (4.5-11.0) X10^3/uL RBC (4.5-5.9) X10^6/uL Hgb (13.5-17.5) g/dL Hct (41-53) % MCV (80-100) fL MCH (26-34) PG MCHC (30-36) % RDW (11.6-14.8) % Plt Count (150-400) X10^3/uL Neut % (Auto) (50-75) % Lymph % (Auto) (25-40) % [place] % (Auto) (3-14) % Eos % (Auto) (2-4) % Baso % (Auto) (0-2) % Neut # (Auto) (8868-7065) /uL Lymph # (Auto) (1952-8790) /uL [place] # (Auto) (0-900) /uL Eos # (Auto) (0-450) /uL Baso # (Auto) (0-100) /uL Sodium (137-145) mmol/L Potassium (3.4-5.1) mmol/L Chloride (98-107) mmol/L Carbon Dioxide (22-32) mmol/L BUN (9-20) mg/dL Creatinine (0.66-1.25) mg/dL Estimated GFR (>60) mL/min BUN/Creatinine Ratio (6-22) Glucose (80-110) mg/dL Lactate 3.0 H 2.0 (0.7-2.1) mmol/L Calcium (8.4-10.2) mg/dL Total Bilirubin (0.2-1.3) mg/dL AST (17-59) IU/L ALT (<50) IU/L Alkaline Phosphatase (38-126) U/L Total Protein (6.3-8.2) g/dL Albumin (3.5-5.0) g/dL Globulin (1.7-4.1) g/dL Albumin/Globulin Ratio (1.0-2.8) Procalcitonin 1.90 H (<0.5) ng/mL SARS-CoV-2 (PCR) (Negative) Imaging Data Chest x-ray: Radiologist's Impression: PROCEDURE:? XR CHEST 1V ? INDICATIONS:? Fever ? TECHNIQUE:? One view of the chest was acquired.? ? COMPARISON:? None. ? FINDINGS:? ? Surgical changes and devices:? None.? ? Lungs and pleura:? Lungs are clear.? No pleural effusions or pneumothorax.? On bibasilar atelectasis and infiltrates greater on the left.? Low lung volumes accentuate pulmonary interstitium and heart size. ? Mediastinum:? Mediastinal contours appear normal.? Heart size is normal.? ? Bones and chest wall:? No suspicious bony lesions.? Overlying soft tissues appear unremarkable.? ? IMPRESSION:? Bibasilar atelectasis and or infiltrate greater on the left ? ? ? Approved by: Anmol Vasquez M.D. on 02/16/2021 at 11:53? Extremity x-ray #1: Radiologist's Impression: PROCEDURE:? XR HAND LT MIN 3V ? INDICATIONS:? Pain/injury/swelling ? TECHNIQUE:? 3 views of the hand(s) acquired.? ? COMPARISON:? None. ? FINDINGS:? ? Bones:? No fractures or dislocations.? Carpal bones are normally aligned.? No suspicious bony lesions.? First carpometacarpal joint space narrowing with marginal osteophytes noted.? Fifth distal interphalangeal joint space narrowing with marginal osteophytes noted as well. ? Soft tissues:? No suspicious soft tissue calcifications.? ? ? IMPRESSION:? ? No evidence of fracture or foreign body. 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 ? ? Approved by: Anmol Vasquez M.D. on 02/16/2021 at 11:52? ECG Data Interpretation: Sinus tachycardia rate [address] changes MDM Narrative Medical decision making narrative: I received sign-out from Dr. Chavez I have seen and evaluated patient myself. He has history of diabetes hypertension hyperlipidemia presenting with 4 days of left finger erythema he has been on antibiotics which turns out he is allergic to. He is covered in hives. Currently tachycardic heart rate 150s he denies any chest pain or shortness of breath although he is on 3 L of oxygen no known history of pulmonary disease or coronary artery disease. He denies any cough chest pain palpitations or other issues. Oxygen is able to be weaned off he is not hypoxic. Breathing unlikely to be pulmonary embolism Blood pressure drops in the emergency department into the 80s and remained there. Sepsis fluids has been started blood pressure improves with IV fluids lactate also improves. Little concern for flexor tenosynovitis is able to flex and extend no significant pain upon palpation. Dr. Gomez orthopedics is consulted and sees the patient in the emergency department. This time agrees with IV antibiotics. Patient is given vancomycin and Rocephin emergency <Mellisa Pruitt, DO - Last Filed: 02/16/21 18:54> Critical Care Time Critical Care Time: Yes Total Critical Care Time: 35 Attestation: The high probability of a clinically significant, sudden or life threatening deterioration of the [cardiovascular] system(s) required my full and direct attention, intervention and personal management. The aggregate critical care time was 35 minutes. This time is in addition to time spent performing reported procedures but includes the following: [x] Data Review and interpretation [x] Patient assessment and monitoring of vital signs [x] Documentation [x] Medication orders and management Discharge Plan Departure Patient Disposition: Admitted as Observation Clinical Impression: Allergic reaction, Cellulitis of finger Admit Date/Time: 02/16/21 14:57 Admit Provider: Latricia Rebolledo
--- NOTE | 2021-02-16 11:33 | DI.RAD.S_ITS ---
PROCEDURE: XR HAND LT MIN 3V INDICATIONS: Pain/injury/swelling TECHNIQUE: 3 views of the hand(s) acquired. COMPARISON: None. FINDINGS: Bones: No fractures or dislocations. Carpal bones are normally aligned. No suspicious bony lesions. First carpometacarpal joint space narrowing with marginal osteophytes noted. Fifth distal interphalangeal joint space narrowing with marginal osteophytes noted as well. Soft tissues: No suspicious soft tissue calcifications. IMPRESSION: No evidence of fracture or foreign body. 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 on 02/16/2021 at 11:52
[2021-02-16] MEDS: VANCOMYCIN PER PHARMACY 1 REQUEST MISC (11:36)
[2021-02-16 12:09] LABS: Add Manual Diff / Slide Review NO; Basophils Absolute Auto 100 /uL (0-100); Basophils Percent Auto 0.6 % (0-2); Eosinophils Absolute Auto 100 /uL (0-450); Eosinophils Percent Auto 0.5 % (2-4); Hematocrit 38.8 % (41-53); Hemoglobin 13.1 g/dL (13.5-17.5); Lymphocytes Absolute Auto 100 /uL (1100-4500); Lymphocytes Percent Auto 1.3 % (25-40); Mean Corpuscular HGB Conc 33.7 % (30-36); Mean Corpuscular Hemoglobin 32.9 PG (26-34); Mean Corpuscular Volume 97.7 fL (80-100); Monocytes Absolute Auto 300 /uL (0-900); Monocytes Percent Auto 2.7 % (3-14); Neutrophils Absolute Auto 10300 /uL (1500-7000); Neutrophils Percent Auto 94.9 % (50-75); Platelet Count 119 X10^3/uL (150-400); Red Blood Cell Count 3.98 X10^6/uL (4.5-5.9); Red Cell Distribution Width 13.6 % (11.6-14.8); White Blood Cell Count 10.8 X10^3/uL (4.5-11.0)
[2021-02-16 12:16] LABS: Alanine Aminotransferase 21 IU/L (<50); Albumin 4.2 g/dL (3.5-5.0); Albumin Globulin Ratio 1.4 (1.0-2.8); Alkaline Phosphatase 40 U/L (38-126); Aspartate Aminotransferase 37 IU/L (17-59); BUN Creatinine Ratio 14.2 (6-22); Bilirubin Total 0.7 mg/dL (0.2-1.3); Blood Urea Nitrogen 26 mg/dL (9-20); Carbon Dioxide 24 mmol/L (22-32); Chloride 97 mmol/L (98-107); Globulin 3.1 g/dL (1.7-4.1); Glucose 250 mg/dL (80-110); HEMOLYSIS < 15 (0-50); Sodium 133 mmol/L (137-145); Total Protein 7.3 g/dL (6.3-8.2)
[2021-02-16] MEDS: SODIUM CHLORIDE 0.9% 1,000 ML 1000 ML IV (12:27)
[2021-02-16] MEDS: VANCOMYCIN 1,500 MG/300 ML PIGGYBACK 200 MG IV (12:27)
[2021-02-16 12:33] LABS: COVID19 - ADMIT (NP swab/PCR) Negative (Negative)
--- NOTE | 2021-02-16 13:00 | PC.NURSE ---
Pt BP 88/56, MD notified and sepsis fluids ordered. Pt remains alert/oriented. Spouse at bedside.
[2021-02-16] MEDS: SODIUM CHLORIDE 0.9% 2,721.54 ML 907.18 ML IV (13:24)
[2021-02-16 13:42] LABS: Reflexed Lactate in 2 Hours Y
[2021-02-16] MEDS: diphenhydrAMINE 50 MG/ML VIAL 25 MG IV (14:13)
[2021-02-16] MEDS: cefTRIAXone 1,000 MG in SODIUM CHLORIDE 0.9% 100 ML 200 ML IV (14:50)
--- NOTE | 2021-02-16 15:19 | PM.CN ---
History of Present Illness Consult details Date Patient Seen: 02/16/21 Time Patient Seen: 15:00 Chief complaint: allergic reaction Reason for consult: Infected finger Narrative: 80-year-old gentleman seen in the emergency room today with a one-week history of a left ring finger infection. Patient does not recall any particular penetrating injury but does state that about a week ago he was moving a bunch of wood. Does not recall any type of splinters or insect bites. Soon after that started to notice redness and swelling. Went to an urgent care about a week ago and was started on a sulfa medication. Patient then eventually developed an allergic reaction and now has a full-body rash from that medication. Patient does feel like the finger has gotten slightly better from when it 1st started. Denies any pain to the finger and states that since this has been going on is been relatively pain-free and has not noticed any loss of motion. Denies any drainage at any point. Meds Home Medications and Allergies Allergies Allergy/AdvReac Type Severity Reaction Status Date / Time sulfamethoxazole Allergy Severe Hives Verified 02/16/21 10:56 [From Bactrim] trimethoprim [From Bactrim] Allergy Severe Hives Verified 02/16/21 10:56 Exam Vital Signs (past 8 hours): - 02/16/21 10:13 02/16/21 10:30 02/16/21 10:31 Temperature 102.3 F H Pulse Rate 149 H 149 H 150 H Respiratory Rate 30 H 34 H 32 H Blood Pressure 116/63 98/69 Pulse Oximetry 96 02/16/21 10:42 02/16/21 11:00 02/16/21 11:19 Temperature 101.8 F H Pulse Rate 149 H 144 H Respiratory Rate 31 H 26 H Blood Pressure 119/58 L 112/68 Pulse Oximetry 96 96 02/16/21 11:30 02/16/21 12:00 02/16/21 12:01 Temperature Pulse Rate 147 H 147 H 149 H Respiratory Rate 28 H 33 H 34 H Blood Pressure 133/58 L 106/66 Pulse Oximetry 96 95 95 02/16/21 12:27 02/16/21 12:30 02/16/21 13:03 Temperature 99.2 F Pulse Rate 130 H 134 H Respiratory Rate 22 24 Blood Pressure 126/69 86/50 L Pulse Oximetry 95 94 02/16/21 13:05 02/16/21 13:06 02/16/21 13:20 Temperature Pulse Rate 130 H 130 H 117 H Respiratory Rate 24 24 27 H Blood Pressure 85/55 L 88/56 L 91/54 L Pulse Oximetry 95 94 95 02/16/21 13:30 02/16/21 13:40 02/16/21 13:50 Temperature Pulse Rate 114 H 113 H 115 H Respiratory Rate 26 H 24 29 H Blood Pressure 87/52 L 91/53 L 122/64 Pulse Oximetry 94 93 96 02/16/21 14:00 02/16/21 14:10 02/16/21 14:20 Temperature Pulse Rate 116 H 115 H 120 H Respiratory Rate 28 H 28 H Blood Pressure 119/59 L 120/63 125/60 Pulse Oximetry 97 95 95 02/16/21 14:30 02/16/21 14:41 02/16/21 14:50 Temperature Pulse Rate 120 H 119 H 120 H Respiratory Rate 26 H 20 Blood Pressure 96/60 137/60 129/59 L Pulse Oximetry 95 94 Oxygen Delivery Method Nasal Cannula Oxygen Flow Rate 1 Narrative Exam Narrative: On physical exam patient does have some redness and swelling to the left ring finger. On palpation no pain with palpation. Also no sign of any fluctuance or fluid collections. Patient can easily fully flex and extend the finger with no sensation of stiffness as well as no pain with range of motion. Nontender with palpation along the flexor tendons with no sign of any tenosynovitis also nontender to palpation over the extensor tendons as well. The redness and swelling is just isolated to the ring finger. Does not extend proximally into the hand and does not involve any of the other fingers. Patient also has a full-body rash from his allergic reaction. Objective Labs Result Diagrams: 02/16/21 11:27 02/16/21 11:27 Labs: Laboratory Results - last 24 hr 02/16/21 02/16/21 02/16/21 11:00 11:27 11:27 WBC 10.8 RBC 3.98 L Hgb 13.1 L Hct 38.8 L MCV 97.7 MCH 32.9 MCHC 33.7 RDW 13.6 Plt Count 119 L Neut % (Auto) 94.9 H Lymph % (Auto) 1.[address] [place] % (Auto) 2.7 L Eos % (Auto) 0.5 L Baso % (Auto) 0.6 Neut # (Auto) 84117 H Lymph # (Auto) [address] [place] # (Auto) 300 Eos # (Auto) 100 Baso # (Auto) 100 Sodium 133 L Potassium 4.0 Chloride 97 L Carbon Dioxide 24 BUN 26 H Creatinine 1.83 H Estimated GFR 36.0 L BUN/Creatinine Ratio 14.2 Glucose 250 H Lactate Calcium 9.0 Total Bilirubin 0.7 AST 37 ALT 21 Alkaline Phosphatase 40 Total Protein 7.3 Albumin 4.2 Globulin 3.1 Albumin/Globulin Ratio 1.4 Procalcitonin SARS-CoV-2 (PCR) Negative 02/16/21 02/16/21 02/16/21 11:27 11:27 14:09 WBC RBC Hgb Hct MCV MCH MCHC RDW Plt Count Neut % (Auto) Lymph % (Auto) [place] % (Auto) Eos % (Auto) Baso % (Auto) Neut # (Auto) Lymph # (Auto) [place] # (Auto) Eos # (Auto) Baso # (Auto) Sodium Potassium Chloride Carbon Dioxide BUN Creatinine Estimated GFR BUN/Creatinine Ratio Glucose Lactate 3.0 H 2.0 Calcium Total Bilirubin AST ALT Alkaline Phosphatase Total Protein Albumin Globulin Albumin/Globulin Ratio Procalcitonin 1.90 H SARS-CoV-2 (PCR) Assessment & Plan Assessment & Plan narrative: Patient was signs of cellulitis to the left ring finger. At this point no obvious sign of any abscess or anything that would require any surgical treatment. We will see how the patient responds to the IV antibiotics. We will re-evaluate his finger tomorrow to see if there has been any interval change. Time Spent With Patient Critical Care time: I spent a total of [] minutes of critical care time on this patient's care today; this time is exclusive of procedural time.
[2021-02-16] MEDS: LACTATED RINGERS 1,000 ML 125 ML IV (16:44)
--- NOTE | 2021-02-16 17:24 | P.HP_ITS ---
History of Present Illness History of Present Illness Chief complaint: allergic reaction Narrative: 80yo male with a hx of non-insulin dependent DM II, hypertension and hyperlipidemia that presents after breaking out in [employer] this morning. The patient reports that 1 week ago, he developed an infection in his left fourth finger. He presented to an urgent care and they prescribed him Bactrim. He reports that he was initially tolerating the medication fine, but last night, he started developing itching all over his body. It was mild, and he didn't think much of it. However, this morning, he woke up with a diffuse, itchy rash. That is when his brought him to the ER. He denies any associated SOB, feeling like his throat is closing, CP, abd pain, n/v/d, weakness, headaches, or any other sxs. He denies there being any pets at home who might have bit him on the affected finger. He does think that it might have started as a splinter after chopping wood last week. He did attempt to debbi the affected area with a knife at home that he sterilized with rubbing alcohol beforehand. He thought this would express pus from the area but only blood came out. He reports some improvement in the infection from the time he started Bactrim, i.e. in being able to flex his finger now. He denies knowing of any other drug allergies. He states his only surgery is a left meniscus repair. He denies there being any relevant family hx. He reports a remote hx of tobacco use. He denies EtOH or illicit drug use. 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 He lives with his at home. Patient History Family & Social History Social History: household members spouse Prior Living Arrangements House Safety & Behavioral: Feels Safe in Current Yes Environment Been Physically Hurt or No Threatened By a Person Suicidal Ideation Description None Suicide Plan Description No Plan Tobacco & Substance use: Tobacco type e-cigarettes Smoking Status Former smoker alcohol intake current alcohol intake frequency 0-2 drinks per day Substance Use Type does not use Meds Home Medications and Allergies Allergies Allergy/AdvReac Type Severity Reaction Status Date / Time sulfamethoxazole Allergy Severe Hives Verified 02/16/21 10:56 [From Bactrim] trimethoprim [From Bactrim] Allergy Severe Hives Verified 02/16/21 10:56 Review of Systems Constitutional Comments: Denies fever/chills, weight loss, appetite suppression. ENT Comments: Endorses lip swelling. Denies throat swelling. Cardiovascular Comments: Denies CP, palpitations, heart racing sensation, peripheral edema. Respiratory Comments: Denies SOB, wheezing, cough, URI sxs. Gastrointestinal Comments: Denies abd pain, n/v/d, flank pain. Genitourinary Comments: Denies any issues with urination. Integumentary/Breasts Comments: Endorses itchy hives diffusely. Exam Vital Signs (past 8 hours): - 02/16/21 10:13 02/16/21 10:30 02/16/21 10:31 Temperature 102.3 F H Pulse Rate 149 H 149 H 150 H Respiratory Rate 30 H 34 H 32 H Blood Pressure 116/63 98/69 Pulse Oximetry 96 02/16/21 10:42 02/16/21 11:00 02/16/21 11:19 Temperature 101.8 F H Pulse Rate 149 H 144 H Respiratory Rate 31 H 26 H Blood Pressure 119/58 L 112/68 Pulse Oximetry 96 96 02/16/21 11:30 02/16/21 12:00 02/16/21 12:01 Temperature Pulse Rate 147 H 147 H 149 H Respiratory Rate 28 H 33 H 34 H Blood Pressure 133/58 L 106/66 Pulse Oximetry 96 95 95 02/16/21 12:27 02/16/21 12:30 02/16/21 13:03 Temperature 99.2 F Pulse Rate 130 H 134 H Respiratory Rate 22 24 Blood Pressure 126/69 86/50 L Pulse Oximetry 95 94 02/16/21 13:05 02/16/21 13:06 02/16/21 13:20 Temperature Pulse Rate 130 H 130 H 117 H Respiratory Rate 24 24 27 H Blood Pressure 85/55 L 88/56 L 91/54 L Pulse Oximetry 95 94 95 02/16/21 13:30 02/16/21 13:40 02/16/21 13:50 Temperature Pulse Rate 114 H 113 H 115 H Respiratory Rate 26 H 24 29 H Blood Pressure 87/52 L 91/53 L 122/64 Pulse Oximetry 94 93 96 02/16/21 14:00 02/16/21 14:10 02/16/21 14:20 Temperature Pulse Rate 116 H 115 H 120 H Respiratory Rate 28 H 28 H Blood Pressure 119/59 L 120/63 125/60 Pulse Oximetry 97 95 95 02/16/21 14:30 02/16/21 14:41 02/16/21 14:50 Temperature Pulse Rate 120 H 119 H 120 H Respiratory Rate 26 H 20 Blood Pressure 96/60 137/60 129/59 L Pulse Oximetry 95 94 Oxygen Delivery Method Room Air Oxygen Flow Rate 1 Const Other: Patient laying in bed comfortably upon my entering the room, in no apparent acute distress, and he is itching his abdomen. HENMT Other: Upper and lower lip swelling noted, does not appear or feel tense. Patient is able to speak fluently. Eyes Other: No scleral icterus appreciated. No periorbital swelling appreciated. Cardio Other: Tachycardic rate with regular rhythm. S1 and S2 heart sounds auscultated with no extra heart sounds or murmurs appreciated. No peripheral edema noted. GI Other: Soft, non-distended, non-tender. Bowel sounds present. Skin Other: Hives and wheals appreciated diffusely over the patient's body habitus. Extrem Other: Palpable and equal radial and dorsalis pedis pulses bilaterally. Objective Labs Result Diagrams: 02/16/21 11:27 02/16/21 11:27 Labs: Laboratory Results - last 24 hr 02/16/21 02/16/21 02/16/21 11:00 11:27 11:27 WBC 10.8 RBC 3.98 L Hgb 13.1 L Hct 38.8 L MCV 97.7 MCH 32.9 MCHC 33.7 RDW 13.6 Plt Count 119 L Neut % (Auto) 94.9 H Lymph % (Auto) 1.3 L [place] % (Auto) 2.7 L Eos % (Auto) 0.5 L Baso % (Auto) 0.6 Neut # (Auto) 34350 H Lymph # (Auto) 100 L [place] # (Auto) 300 Eos # (Auto) 100 Baso # (Auto) 100 Sodium 133 L Potassium 4.0 Chloride 97 L Carbon Dioxide 24 BUN 26 H Creatinine 1.83 H Estimated GFR 36.0 L BUN/Creatinine Ratio 14.2 Glucose 250 H Lactate Calcium 9.0 Total Bilirubin 0.7 AST 37 ALT 21 Alkaline Phosphatase 40 Total Protein 7.3 Albumin 4.2 Globulin 3.1 Albumin/Globulin Ratio 1.4 Procalcitonin SARS-CoV-2 (PCR) Negative 02/16/21 02/16/21 02/16/21 11:27 11:27 14:09 WBC RBC Hgb Hct MCV MCH MCHC RDW Plt Count Neut % (Auto) Lymph % (Auto) [place] % (Auto) Eos % (Auto) Baso % (Auto) Neut # (Auto) Lymph # (Auto) [place] # (Auto) Eos # (Auto) Baso # (Auto) Sodium Potassium Chloride Carbon Dioxide BUN Creatinine Estimated GFR BUN/Creatinine Ratio Glucose Lactate 3.0 H 2.0 Calcium Total Bilirubin AST ALT Alkaline Phosphatase Total Protein Albumin Globulin Albumin/Globulin Ratio Procalcitonin 1.90 H SARS-CoV-2 (PCR) Assessment & Plan Assessment & Plan narrative: Assessment: 1. Allergic urticaria with angioedema, secondary to Bactrim 2. Left fourth finger circumscribed cellulitis 3. NESTOR, likely pre-renal 4. Sinus tachycardia, likely medication-induced 5. Acute urinary retention, likely medication-induced 6. Hx of non-insulin dependent DM II 7. Hx of hypertension 8. Hx of hyperlipidemia Plan: 1. As per HPI, this likely occurred secondary to Bactrim. Given IV Solumedrol 125 mg in the ER, and will continue that dose as scheduled in the proceeding days. Encouraged cold compresses for symptomatic relief. If itching is intolerable, can start IV famotidine. 2. Will start IV linezolid for gram positive coverage, including MRSA, and IV ceftriaxone for gram negative coverage. This was not associated with an animal/insect bite, and do not see need for anaerobic coverage at this point. Appreciate orthopedic surgery recommendations regarding whether surgery is needed. 3. This likely occurred due to a state of hypoperfusion to the kidneys from low BP when he initially manifested this allergic reaction. IV fluid resuscitation initiated and will monitor Cr. Urine Cr, Na and osm ordered. 4. Likely occurred secondary to anticholinergic activity from IV Benadryl in the ER. Will give PO Toprol XL 25 mg one-time. If anti-itch relief needed, can order IV famotidine, as a pure antihistamine. 5. Likely occurred secondary to IV Benadryl. Straight cath removed 800 cc's urine. 6. Patient reports being on metformin at home. A1c ordered. Insulin sliding scale in place. 7. Patient does not recall his medications or doses, and reports she will bring them in for reconciliation. 8. Same as problem 7. VTE prophylaxis: Heparin 5000 units tid Disposition: Home, once clinically stable Time Spent With Patient Critical Care time: I spent a total of [] minutes of critical care time on this patient's care today; this time is exclusive of procedural time. Quality VTE Deep Vein Thrombosis/Pulmonary Embolism Present on Admission: No
[2021-02-16] MEDS: INSULIN LISPRO 100 UNIT/ML 3ML VIAL SUBCUT ×2 (17:41→20:36)
--- NOTE | 2021-02-16 17:50 | PC.NURSE ---
Addendum entered by Roxi Tillman R.N. 02/16/21 18:49: Patients HR in 140's Dr Rebolledo aware, patient denies shortness of breath and chest pain. Orders received. Original Note: Patient stood at bedside and attempted to void, unable to. Bladder scan for 800cc, in and out cath at 1700 for 900cc clear lin urine, UA sent. Patients HR 120-130's sinus, Dr Rebolledo aware orders received.
[2021-02-16] MEDS: METOPROLOL ER 25 MG TABLET PO (18:09)
[2021-02-16] MEDS: LINEZOLID 600 MG/300 ML IV.SOLN IV (18:09)
[2021-02-16 18:11] LABS: Appearance Urine UA CLEAR; Bilirubin Urine UA NEGATIVE (NEGATIVE); Color Urine UA YELLOW; Glucose Urine UA 1+ g/dL (Negative); Ketones Urine UA TRACE (NEGATIVE); Leukocyte Esterase Urine UA NEGATIVE (NEGATIVE); Nitrite Urine UA NEGATIVE (Negative); Occult Blood Urine UA 3+ (Negative); Protein Urine UA 1+ (Negative); Specific Gravity Urine UA 1.025 (1.000-1.035); Urobilinogen Urine UA 0.2 E.U./dL (0.2)
[2021-02-16] MEDS: ACETAMINOPHEN 325 MG TABLET 650 MG PO (18:19)
[2021-02-16 18:35] LABS: Sodium Urine Random 116 mmol/L (30-90)
[2021-02-16] MEDS: LABETALOL 20 MG/4 ML SYRINGE 10 MG IV (18:58)
[2021-02-16 19:32] LABS: Amorphous Sediment Urine 1+; Bacteria Urine None Seen; Culture Indicated Urine Cult Not Indicated; RBC Urine 0-1/HPF (0-5/HPF); WBC Urine 0-1/HPF (0-5/HPF)
[2021-02-16] MEDS: HEPARIN 5,000 UNIT/ML VIAL 5000 UNIT SUBCUT (21:17)
[2021-02-16] MEDS: SODIUM CHLORIDE 0.9% FLUSH 10 ML IV (21:24)
[2021-02-17] VITALS (30 sets, daily range): BP systolic 117–160; BP diastolic 51–76; PULSE 81–141; RESP 18–40; TEMP 36.2–39.2; O2SAT 92–99
[2021-02-17] MEDS: ACETAMINOPHEN 325 MG TABLET 650 MG PO ×2 (00:29→08:11)
[2021-02-17] MEDS: LACTATED RINGERS 1,000 ML 125 ML IV ×2 (01:30→10:18)
--- NOTE | 2021-02-17 04:32 | DI.RAD.S_ITS ---
PROCEDURE: XR CHEST 1V INDICATIONS: hypoxia TECHNIQUE: One view of the chest was acquired. COMPARISON: [facility], CR, XR CHEST 1V, 02/16/2021, 11:41. FINDINGS: Surgical changes and devices: None. Lungs and pleura: Lungs are clear. No pleural effusions or pneumothorax. Mediastinum: Mediastinal contours appear normal. Heart size is normal. Bones and chest wall: No suspicious bony lesions. Overlying soft tissues appear unremarkable. IMPRESSION: No acute cardiopulmonary disease process. Dictated by: Monserrat Cervantes MD, PhD on 02/17/2021 at 8:09 Approved by: Monserrat Cervantes MD, PhD on 02/17/2021 at 8:09
[2021-02-17] MEDS: LINEZOLID 600 MG/300 ML IV.SOLN IV ×2 (05:37→18:57)
[2021-02-17] MEDS: HEPARIN 5,000 UNIT/ML VIAL 5000 UNIT SUBCUT ×3 (05:37→22:15)
[2021-02-17 06:31] LABS: Hematocrit 38.7 % (41-53); Hemoglobin 13.1 g/dL (13.5-17.5); Mean Corpuscular HGB Conc 33.9 % (30-36); Mean Corpuscular Hemoglobin 32.8 PG (26-34); Mean Corpuscular Volume 96.7 fL (80-100); Platelet Count 127 X10^3/uL (150-400); Red Cell Distribution Width 13.8 % (11.6-14.8); White Blood Cell Count 16.2 X10^3/uL (4.5-11.0)
[2021-02-17 06:34] LABS: Add Manual Diff / Slide Review YES
[2021-02-17 06:40] LABS: BUN Creatinine Ratio 22.9 (6-22); Blood Urea Nitrogen 30 mg/dL (9-20); Calcium 8.5 mg/dL (8.4-10.2); Carbon Dioxide 19 mmol/L (22-32); Chloride 101 mmol/L (98-107); Estimated Glomerular Filt Rate 52.9 mL/min (>60); Glucose 186 mg/dL (80-110); HEMOLYSIS < 15 (0-50); Magnesium 1.6 mg/dL (1.6-2.3); Potassium 4.6 mmol/L (3.4-5.1); Sodium 132 mmol/L (137-145)
[2021-02-17 06:49] LABS: NT-proBNP (BNP-Adult 18+) 1010 pg/mL (<450)
[2021-02-17 06:57] LABS: Procalcitonin 3.64 ng/mL (<0.5)
--- NOTE | 2021-02-17 07:23 | PC.NURSE ---
0415 - Alerted by ICU to patient's HR of 143. Patient showing O2 of 87% on 4L NC, Temp 102.8, A/O x4. Provider notified and ordered Stat Chest X-ray and several Stat lab draws. Patient repositioned, IS used, cough and deep breathing, and cooling procedures given.
--- NOTE | 2021-02-17 07:50 | P.PN_ITS ---
Subjective Subjective Date Patient Seen: 02/17/21 Time Patient Seen: 07:50 Interval history: Patient with a 1 week history of redness and swelling to his left ring finger. Patient doing well today except for continued rash and itching from allergic reaction to the previous antibiotic. Denies any pain or discomfort to the ring finger. Does feel like the swelling and redness has continued to improve. Exam Vital Signs (past 8 hours): - 02/17/21 00:29 02/17/21 01:01 02/17/21 04:10 Temperature 101.8 F H 101.8 F H 102.5 F H Pulse Rate 131 H 130 H Respiratory Rate 19 Blood Pressure 129/51 L 160/76 H Pulse Oximetry 95 93 Oxygen Delivery Method Room Air Oxygen Flow Rate 3 Narrative Exam Narrative: Decrease in swelling and redness to the ring finger. Patient continues to have pain-free full range of motion of the finger. No sign of any fluctuance or purulence. No sign of any discharge. No sign of any tenosynovitis. Objective Labs Result Diagrams: 02/17/21 05:30 02/17/21 05:30 Labs: Laboratory Results - last 24 hr 02/16/21 02/16/21 02/16/21 11:00 11:27 11:27 WBC 10.8 RBC 3.98 L Hgb 13.1 L Hct 38.8 L MCV 97.7 MCH 32.9 MCHC 33.7 RDW 13.6 Plt Count 119 L Neut % (Auto) 94.9 H Lymph % (Auto) 1.3 L [place] % (Auto) 2.7 L Eos % (Auto) 0.5 L Baso % (Auto) 0.6 Neut # (Auto) 33410 H Lymph # (Auto) 100 L [place] # (Auto) 300 Eos # (Auto) 100 Baso # (Auto) 100 Sodium 133 L Potassium 4.0 Chloride 97 L Carbon Dioxide 24 BUN 26 H Creatinine 1.83 H Estimated GFR 36.0 L BUN/Creatinine Ratio 14.2 Glucose 250 H Lactate Calcium 9.0 Magnesium Total Bilirubin 0.7 AST 37 ALT 21 Alkaline Phosphatase 40 NT-Pro-B Natriuret Pep Total Protein 7.3 Albumin 4.2 Globulin 3.1 Albumin/Globulin Ratio 1.4 Procalcitonin Urine Color Urine Appearance Urine pH Ur Specific [place] Urine Protein Urine Glucose (UA) Urine Ketones Urine Occult Blood Urine Nitrate Urine Bilirubin Urine Urobilinogen Ur Leukocyte Esterase Urine RBC Urine WBC Amorphous Sediment Urine Bacteria Ur Culture Indicated? Ur Random Sodium Urine Creatinine SARS-CoV-2 (PCR) Negative 02/16/21 02/16/21 02/16/21 11:27 11:27 14:09 WBC RBC Hgb Hct MCV MCH MCHC RDW Plt Count Neut % (Auto) Lymph % (Auto) [place] % (Auto) Eos % (Auto) Baso % (Auto) Neut # (Auto) Lymph # (Auto) [place] # (Auto) Eos # (Auto) Baso # (Auto) Sodium Potassium Chloride Carbon Dioxide BUN Creatinine Estimated GFR BUN/Creatinine Ratio Glucose Lactate 3.0 H 2.0 Calcium Magnesium Total Bilirubin AST ALT Alkaline Phosphatase NT-Pro-B Natriuret Pep Total Protein Albumin Globulin Albumin/Globulin Ratio Procalcitonin 1.90 H Urine Color Urine Appearance Urine pH Ur Specific [place] Urine Protein Urine Glucose (UA) Urine Ketones Urine Occult Blood Urine Nitrate Urine Bilirubin Urine Urobilinogen Ur Leukocyte Esterase Urine RBC Urine WBC Amorphous Sediment Urine Bacteria Ur Culture Indicated? Ur Random Sodium Urine Creatinine SARS-CoV-2 (PCR) 02/16/21 02/16/21 02/17/21 17:00 17:00 05:30 WBC 16.2 H RBC 4.00 L Hgb 13.1 L Hct 38.7 L MCV 96.7 MCH 32.8 MCHC 33.9 RDW 13.8 Plt Count 127 L Neut % (Auto) Not Reportable Lymph % (Auto) Not Reportable [place] % (Auto) Not Reportable Eos % (Auto) Not Reportable Baso % (Auto) Not Reportable Neut # (Auto) Lymph # (Auto) Not Reportable [place] # (Auto) Not Reportable Eos # (Auto) Baso # (Auto) Not Reportable Sodium Potassium Chloride Carbon Dioxide BUN Creatinine Estimated GFR BUN/Creatinine Ratio Glucose Lactate Calcium Magnesium Total Bilirubin AST ALT Alkaline Phosphatase NT-Pro-B Natriuret Pep Total Protein Albumin Globulin Albumin/Globulin Ratio Procalcitonin Urine Color Yellow Urine Appearance Clear Urine pH 5.0 Ur Specific [place] 1.025 Urine Protein 1+ H Urine Glucose (UA) 1+ H Urine Ketones Trace H Urine Occult Blood 3+ H Urine Nitrate Negative Urine Bilirubin Negative Urine Urobilinogen 0.2 Ur Leukocyte Esterase Negative Urine RBC 0-1/hpf Urine WBC 0-1/hpf Amorphous Sediment 1+ Urine Bacteria None seen Ur Culture Indicated? Cult not indicated Ur Random Sodium 116 H Urine Creatinine 133.0 SARS-CoV-2 (PCR) 02/17/21 02/17/21 05:30 05:30 WBC RBC Hgb Hct MCV MCH MCHC RDW Plt Count Neut % (Auto) Lymph % (Auto) [place] % (Auto) Eos % (Auto) Baso % (Auto) Neut # (Auto) Lymph # (Auto) [place] # (Auto) Eos # (Auto) Baso # (Auto) Sodium 132 L Potassium 4.6 Chloride 101 Carbon Dioxide 19 L BUN 30 H Creatinine 1.31 H Estimated GFR 52.9 L BUN/Creatinine Ratio 22.9 H Glucose 186 H Lactate Calcium 8.5 Magnesium 1.6 Total Bilirubin AST ALT Alkaline Phosphatase NT-Pro-B Natriuret Pep 1010 H Total Protein Albumin Globulin Albumin/Globulin Ratio Procalcitonin 3.64 H Urine Color Urine Appearance Urine pH Ur Specific [place] Urine Protein Urine Glucose (UA) Urine Ketones Urine Occult Blood Urine Nitrate Urine Bilirubin Urine Urobilinogen Ur Leukocyte Esterase Urine RBC Urine WBC Amorphous Sediment Urine Bacteria Ur Culture Indicated? Ur Random Sodium Urine Creatinine SARS-CoV-2 (PCR) [facility] Social History household members: spouse Smoking Status: Former smoker alcohol intake: current Assessment & Plan Assessment & Plan narrative: Patient showing signs of improvement to the cellulitis to his left ring finger with IV antibiotics. Patient will continue with the IV antibiotics will check again later on this afternoon to make sure he is continuing to make improvements. No restrictions to range of motion or use of the left hand. Time Spent With Patient Critical Care time: I spent a total of [] minutes of critical care time on this patient's care today; this time is exclusive of procedural time. Quality VTE Deep Vein Thrombosis/Pulmonary Embolism Present on Admission: No
[2021-02-17 07:51] LABS: Hemoglobin A1C% w Est Avg Glu 6.2 % (4.0-6.0)
--- NOTE | 2021-02-17 07:52 | DI.ECHO.S_ITS ---
[facility]---------+ [facility] +---------+ : : [address] : : : : [place] : : : : [id number] : : : : Phone: [phone]+ Echocardiogram Report + + :Name: YUDELKA WASHBURN Study Date: 02/17/2021 Height: 72 in : :[facility] ReadingLocation: Weight: 200 lb : : Gender: Male BSA: 2.1 m2 : :: 1940 Age: 80 yrs BP: 122/68 mmHg: :Reason For Study: Tachycardia : : Performed By: Alvino Steven : + + Interpretation Summary The study quality was technically difficult. The left ventricular ejection fraction is grossly normal. Left ventricular ejection fraction is estimated to be 55. There are no obvious focal wall motion abnormalities noted but poor endocardial definition reduces the sensitivity for the detection of such. There is mild mitral annular calcification. There is trace mitral regurgitation. Procedure: A two-dimensional transthoracic echocardiogram with color flow and Doppler was performed. There is no prior echocardiogram noted for this patient. The study quality was technically difficult. Overall fair image quality with patient supine. Per nurse's request no definity because patient is here from severe reaction to medication. The patient was in sinus tachycardia with heart rates between 108 - 112 bpm during the exam. Left Ventricle: The left ventricle is normal in size and wall thickness. The left ventricular ejection fraction is grossly normal. Left ventricular ejection fraction is estimated to be 55. There are no obvious focal wall motion abnormalities noted but poor endocardial definition reduces the sensitivity for the detection of such. Diastolic function could not be accurately assessed due to tachycardia. Right Ventricle: The right ventricle is normal in size and function. Atria: The left atrial size is normal. Borderline right atrial enlargement. There is no Doppler evidence for an interatrial shunt. Mitral Valve: There is mild mitral annular calcification. The mitral valve leaflets appear borderline thickened, but open well. There is trace mitral regurgitation. Aortic Valve: The aortic valve is trileaflet. The aortic valve opens well. No aortic regurgitation is present. Tricuspid Valve: The tricuspid valve is normal. There is trace tricuspid regurgitation. Pulmonary artery pressures cannot be estimated because of the lack of a measurable TR jet velocity. Pulmonic Valve: The pulmonic valve leaflets are thin and pliable; valve motion is normal. There is a trace or physiologic amount of pulmonic regurgitation. Great Vessels: The aortic root is normal size. The ascending aorta is normal in size. The aortic arch could not be visualized. The inferior vena cava was not well visualized. Pericardium/ Pleura Due to the poor quality of the echocardiogram, a pericardial effusion cannot be excluded. There is an anterior echo-free space consistent with a fat pad. There is no pleural effusion. MMode/2D Measurements & Calculations LVIDd: 4.6 cm LVOT diam: 2.0 cm LVIDs: 3.3 cm Ao root diam: 3.4 cm FS: 27.5 % asc Aorta Diam: 3.3 cm IVSd: 0.98 cm LVPWd: 0.88 cm LV call. diameter/BSA (cm/m^2): 2.1 LV sys. diameter/BSA (cm/m^2): 1.6 LA A2 area: 15.1 cm2 RA long axis: 5.0 cm LA A4 area: 16.6 cm2 RA area: 15.2 cm2 LA length (vol): 5.2 cm RA vol: 39.4 ml LA vol: 40.5 ml RA : 18.5 ml/m2 LA vol index: 19.0 ml/m2 TAPSE: 2.2 cm Doppler Measurements & Calculations Ao V2 max: 159.7 cm/sec LVOT Max Thompson: 99.9 cm/sec Ao V2 mean: 113.3 cm/sec LV V1 max P.0 mmHg Ao max P.2 mmHg LV V1 VTI: 15.4 cm Ao mean P.5 mmHg MIRNA(I,D): 2.0 cm2 Ao V2 VTI: 24.4 cm MIRNA(V,D): 2.0 cm2 sev ratio: 0.63 MIRNA indexed to BSA (cm^2/m^2): 0.94 MV E max thompson: 59.3 cm/sec PA V2 max: 80.1 cm/sec MV A max thompson: 75.8 cm/sec PA V2 mean: 65.4 cm/sec MV E/A: 0.78 PA mean P.8 mmHg Lat Peak E' Thompson: 6.6 cm/sec PA pr(Accel): 17.3 mmHg E/E' lat: 8.9 MV dec time: 0.09 sec SV([facility]): 49.1 ml Reading Physician:11:49 AM
[2021-02-17] MEDS: metroNIDAZOLE 500 MG/100 ML PIGGYBACK 100 MG IV ×2 (08:10→17:36)
[2021-02-17] MEDS: FAMOTIDINE 20 MG/2 ML VIAL IV ×2 (08:10→18:58)
[2021-02-17] MEDS: methylPREDNISolone 125 MG/2 ML VIAL IV ×2 (08:10→10:22)
[2021-02-17 08:11] LABS: Neutrophils Absolute Manual 14580 /uL (3000-5900); Total Cells Counted 100
[2021-02-17] MEDS: INSULIN LISPRO 100 UNIT/ML 3ML VIAL SUBCUT ×4 (08:11→20:42)
[2021-02-17] MEDS: dilTIAZem 5 MG/ML SDV 15 MG IV (09:30)
[2021-02-17] MEDS: FUROSEMIDE 40 MG/4 ML VIAL IV (09:33)
[2021-02-17] MEDS: dilTIAZem 125 MG in DEXTROSE 5 % IN WATER 100 ML IV (10:01)
--- NOTE | 2021-02-17 10:09 | PC.NURSE ---
Assumed care of pt at 0700. Pt resting in bed during bedside hand-off. HR 130-140. Noted SOB, NC out of nares, Sats 86%, Replaced in nares, 4L NC sats increased to 98%. RR 40. Temp 102.5. Provider notified. Rec VTO for stat EKG. R.T. contacted for EKG. Medications administered per mar. Upon assessment pt continues to have SOB, Tachycardia, HTN. Trans to ICU Room 229. Warren inserted per VVO. See ICU documentation for ICU care and medication management.
[2021-02-17 11:06] LABS: Hematocrit 38.1 % (41-53); Hemoglobin 12.8 g/dL (13.5-17.5); Mean Corpuscular HGB Conc 33.6 % (30-36); Mean Corpuscular Hemoglobin 32.5 PG (26-34); Mean Corpuscular Volume 96.8 fL (80-100); Platelet Count 125 X10^3/uL (150-400); Red Blood Cell Count 3.93 X10^6/uL (4.5-5.9); Red Cell Distribution Width 13.8 % (11.6-14.8); White Blood Cell Count 15.6 X10^3/uL (4.5-11.0)
[2021-02-17 11:18] LABS: Add Manual Diff / Slide Review YES
[2021-02-17 11:37] LABS: Neutrophils Absolute Manual 14820 /uL (3000-5900); Total Cells Counted 100
[2021-02-17 11:38] LABS: RBC Morphology Normal Morphology
[2021-02-17 11:44] LABS: Alanine Aminotransferase 36 IU/L (<50); Albumin 3.7 g/dL (3.5-5.0); Albumin Globulin Ratio 1.3 (1.0-2.8); Alkaline Phosphatase 28 U/L (38-126); Aspartate Aminotransferase 98 IU/L (17-59); BUN Creatinine Ratio 22.1 (6-22); Bilirubin Total 0.6 mg/dL (0.2-1.3); Blood Urea Nitrogen 30 mg/dL (9-20); Calcium 8.6 mg/dL (8.4-10.2); Carbon Dioxide 19 mmol/L (22-32); Chloride 101 mmol/L (98-107); Estimated Glomerular Filt Rate 50.7 mL/min (>60); Globulin 2.8 g/dL (1.7-4.1); Glucose 165 mg/dL (80-110); HEMOLYSIS < 15 (0-50); Magnesium 1.7 mg/dL (1.6-2.3); Potassium 4.4 mmol/L (3.4-5.1); Sodium 132 mmol/L (137-145); Total Protein 6.5 g/dL (6.3-8.2)
[2021-02-17 11:53] LABS: NT-proBNP (BNP-Adult 18+) 1040 pg/mL (<450)
[2021-02-17 12:01] LABS: Troponin I 0.162 ng/mL (0.01-0.034)
[2021-02-17] MEDS: cefTRIAXone 1,000 MG in SODIUM CHLORIDE 0.9% 100 ML 200 ML IV (12:30)
[2021-02-17] MEDS: LORazepam 0.5 MG TABLET PO ×2 (12:30→20:41)
--- NOTE | 2021-02-17 12:58 | PM.CN.EICU ---
History of Present Illness Consult details Chief complaint: allergic reaction :: This patient was seen via real time interactive two-way audiovisual telecommunication. 80 y.o. male w/ PMHx of hyperlipidemia, HTN and T2DM who was admitted 02/16 with an allergic reaction to Bactrim; he was taking this for a cellulitis of his left fourth finger. He received methylprednisolone 125 mg yesterday and was also started on histamine blockade. Bactrim was changed to Zyvox, metronidazole and ceftriaxone; orthopedics was also consulted. This AM, he developed worsening urticaria and was tachycardic to the 140s. He was transferred to the ICU and was started on a diltiazem infusion which is currently at 10 mg/hr. [facility] Social History household members: spouse Smoking Status: Former smoker alcohol intake: current Current Medications Current Medications Medications: Home Medications amlodipine 5 mg tablet (Norvasc) 5 mg PO DAILY 02/16/21 [History Confirmed 02/16/21] hydrochlorothiazide 25 mg tablet 25 mg PO DAILY 02/16/21 [History Confirmed 02/16/21] lisinopril 20 mg tablet 20 mg PO DAILY 02/16/21 [History Confirmed 02/16/21] lovastatin 20 mg tablet 20 mg PO DAILY 02/16/21 [History Confirmed 02/16/21] metformin 500 mg tablet 500 mg PO BID 02/16/21 [History Confirmed 02/16/21] metoprolol tartrate 50 mg tablet 50 mg PO BID 02/16/21 [History Confirmed 02/16/21] Visit Medications (administered) Generic Name Dose Route Start Last Admin Trade Name Freq PRN Reason Stop Dose Admin Acetaminophen 650 mg 02/16/21 18:07 02/17/21 08:11 Acetaminophen 325 Mg Tablet PO 650 mg Q6HR PRN Administration Fever/Mild Pain (1-3) Heparin Sodium (Porcine) 5,000 unit 02/16/21 22:00 02/17/21 05:37 Heparin 5,000 Unit/Ml Vial SUBCUT 5,000 unit Q8HR MAURY Administration Lactated Ringer's 1,000 mls @ 125 mls/hr 02/16/21 16:30 02/17/21 10:18 Lactated Ringers IV 125 mls/hr CONT MAURY Administration Linezolid 600 mg in 300 mls @ 600 mls/hr 02/16/21 18:00 02/17/21 10:51 Zyvox IV Infused Q12H MAURY Infusion Ceftriaxone Sodium 1,000 mg/ 100 mls @ 200 mls/hr 02/17/21 09:00 02/17/21 12:30 Sodium Chloride IV 200 mls/hr Q24H MAURY Administration Metronidazole 500 mg in 100 mls @ 100 mls/hr 02/17/21 08:00 02/17/21 10:19 Flagyl IV Infused Q8H MAURY Infusion Diltiazem HCl 125 mg/ Dextrose 125 mls @ 5 mls/hr 02/17/21 09:22 02/17/21 10:11 IV 10 mg/hr TITRATE MAURY 10 mls/hr Titration Protocol 5 MG/HR Insulin Human Lispro 0 unit 02/16/21 16:45 02/17/21 12:18 Insulin Lispro 100 Unit/Ml 3ml Vial SUBCUT 2 unit ACHS MAURY Administration Protocol Lorazepam 0.5 mg 02/17/21 12:30 02/17/21 12:30 Lorazepam 0.5 Mg Tablet PO 0.5 mg BID MAURY Administration Methylprednisolone 125 mg 02/17/21 09:00 02/17/21 08:10 Methylprednisolone 125 Mg/2 Ml Vial IV 125 mg DAILY MAURY Administration Sodium Chloride 10 ml 02/16/21 21:00 02/17/21 10:01 Sodium Chloride 0.9% Flush IV Not Given BID MAUYR Review of Systems Review of Systems Narrative: not conducted as patient is sleeping upon camera activated Exam Vital Signs (past 8 hours): - 02/17/21 07:00 02/17/21 08:04 02/17/21 08:11 Temperature 102.5 F H 102.5 F H Pulse Rate 140 H Respiratory Rate 40 H Blood Pressure 160/54 H Pulse Oximetry 94 98 02/17/21 08:56 02/17/21 09:07 02/17/21 09:30 Temperature 102.3 F H Pulse Rate 140 H 141 H 130 H Respiratory Rate 40 H 37 H Blood Pressure 125/76 125/76 Pulse Oximetry 92 94 02/17/21 10:00 02/17/21 10:01 Temperature Pulse Rate 117 H 115 H Respiratory Rate 32 H Blood Pressure 122/68 122/68 Pulse Oximetry 95 Oxygen Delivery Method Nasal Cannula Oxygen Flow Rate 4 Narrative Exam Narrative: no distress Resp Effort & Inspection: normal respiratory effort Cardio Other: HR in 80s on diltiazem 10 mg/hr Extrem Other: swollen left fourth finger seen on camera--color somewhat dusky Objective Labs Result Diagrams: 02/17/21 10:00 02/17/21 10:00 Labs: Laboratory Results - last 24 hr 02/16/21 02/16/21 02/16/21 11:27 14:09 17:00 WBC RBC Hgb Hct MCV MCH MCHC RDW Plt Count Neut % (Auto) Lymph % (Auto) [place] % (Auto) Eos % (Auto) Baso % (Auto) Lymph # (Auto) [place] # (Auto) Baso # (Auto) Total Counted Seg Neutrophils % Band Neutrophils % Lymphocytes % (Manual) Monocytes % (Manual) Eosinophils % (Manual) Metamyelocytes % Neutrophils # (Manual) RBC Morphology Sodium Potassium Chloride Carbon Dioxide BUN Creatinine Estimated GFR BUN/Creatinine Ratio Glucose Hemoglobin A1c Lactate 2.0 Calcium Magnesium Total Bilirubin AST ALT Alkaline Phosphatase Troponin I NT-Pro-B Natriuret Pep Total Protein Albumin Globulin Albumin/Globulin Ratio Procalcitonin 1.90 H Urine Color Yellow Urine Appearance Clear Urine pH 5.0 Ur Specific [place] 1.025 Urine Protein 1+ H Urine Glucose (UA) 1+ H Urine Ketones Trace H Urine Occult Blood 3+ H Urine Nitrate Negative Urine Bilirubin Negative Urine Urobilinogen 0.2 Ur Leukocyte Esterase Negative Urine RBC 0-1/hpf Urine WBC 0-1/hpf Amorphous Sediment 1+ Urine Bacteria None seen Ur Culture Indicated? Cult not indicated Ur Random Sodium Urine Creatinine 02/16/21 02/17/21 02/17/21 17:00 05:30 05:30 WBC 16.2 H RBC 4.00 L Hgb 13.1 L Hct 38.7 L MCV 96.7 MCH 32.8 MCHC 33.9 RDW 13.8 Plt Count 127 L Neut % (Auto) Not Reportable Lymph % (Auto) Not Reportable [place] % (Auto) Not Reportable Eos % (Auto) Not Reportable Baso % (Auto) Not Reportable Lymph # (Auto) Not Reportable [place] # (Auto) Not Reportable Baso # (Auto) Not Reportable Total Counted 100 Seg Neutrophils % 71.0 H Band Neutrophils % 19.0 H Lymphocytes % (Manual) 4.0 L Monocytes % (Manual) 2.0 Eosinophils % (Manual) 1.0 L Metamyelocytes % 3.0 H Neutrophils # (Manual) 30697 H RBC Morphology Not Reportable Sodium Potassium Chloride Carbon Dioxide BUN Creatinine Estimated GFR BUN/Creatinine Ratio Glucose Hemoglobin A1c 6.2 H Lactate Calcium Magnesium Total Bilirubin AST ALT Alkaline Phosphatase Troponin I NT-Pro-B Natriuret Pep Total Protein Albumin Globulin Albumin/Globulin Ratio Procalcitonin Urine Color Urine Appearance Urine pH Ur Specific [place] Urine Protein Urine Glucose (UA) Urine Ketones Urine Occult Blood Urine Nitrate Urine Bilirubin Urine Urobilinogen Ur Leukocyte Esterase Urine RBC Urine WBC Amorphous Sediment Urine Bacteria Ur Culture Indicated? Ur Random Sodium 116 H Urine Creatinine 133.0 02/17/21 02/17/21 02/17/21 05:30 05:30 10:00 WBC RBC Hgb Hct MCV MCH MCHC RDW Plt Count Neut % (Auto) Lymph % (Auto) [place] % (Auto) Eos % (Auto) Baso % (Auto) Lymph # (Auto) [place] # (Auto) Baso # (Auto) Total Counted Seg Neutrophils % Band Neutrophils % Lymphocytes % (Manual) Monocytes % (Manual) Eosinophils % (Manual) Metamyelocytes % Neutrophils # (Manual) RBC Morphology Sodium 132 L 132 L Potassium 4.6 4.4 Chloride 101 101 Carbon Dioxide 19 L 19 L BUN 30 H 30 H Creatinine 1.31 H 1.36 H Estimated GFR 52.9 L 50.7 L BUN/Creatinine Ratio 22.9 H 22.1 H Glucose 186 H 165 H Hemoglobin A1c Lactate Calcium 8.5 8.6 Magnesium 1.6 Total Bilirubin 0.6 AST 98 H ALT 36 Alkaline Phosphatase 28 L Troponin I NT-Pro-B Natriuret Pep 1010 H Total Protein 6.5 Albumin 3.7 Globulin 2.8 Albumin/Globulin Ratio 1.3 Procalcitonin 3.64 H Urine Color Urine Appearance Urine pH Ur Specific [place] Urine Protein Urine Glucose (UA) Urine Ketones Urine Occult Blood Urine Nitrate Urine Bilirubin Urine Urobilinogen Ur Leukocyte Esterase Urine RBC Urine WBC Amorphous Sediment Urine Bacteria Ur Culture Indicated? Ur Random Sodium Urine Creatinine 02/17/21 02/17/21 02/17/21 10:00 10:00 10:00 WBC 15.6 H RBC 3.93 L Hgb 12.8 L Hct 38.1 L MCV 96.8 MCH 32.5 MCHC 33.6 RDW 13.8 Plt Count 125 L Neut % (Auto) Not Reportable Lymph % (Auto) Not Reportable [place] % (Auto) Not Reportable Eos % (Auto) Not Reportable Baso % (Auto) Not Reportable Lymph # (Auto) Not Reportable [place] # (Auto) Not Reportable Baso # (Auto) Not Reportable Total Counted 100 Seg Neutrophils % 82.0 H Band Neutrophils % 13.0 H Lymphocytes % (Manual) 2.0 L Monocytes % (Manual) Eosinophils % (Manual) Metamyelocytes % 3.0 H Neutrophils # (Manual) 09906 H RBC Morphology Normal morphology Sodium Potassium Chloride Carbon Dioxide BUN Creatinine Estimated GFR BUN/Creatinine Ratio Glucose Hemoglobin A1c Lactate Calcium Magnesium Total Bilirubin AST ALT Alkaline Phosphatase Troponin I 0.162 H* NT-Pro-B Natriuret Pep 1040 H Total Protein Albumin Globulin Albumin/Globulin Ratio Procalcitonin Urine Color Urine Appearance Urine pH Ur Specific [place] Urine Protein Urine Glucose (UA) Urine Ketones Urine Occult Blood Urine Nitrate Urine Bilirubin Urine Urobilinogen Ur Leukocyte Esterase Urine RBC Urine WBC Amorphous Sediment Urine Bacteria Ur Culture Indicated? Ur Random Sodium Urine Creatinine 02/17/21 10:00 WBC RBC Hgb Hct MCV MCH MCHC RDW Plt Count Neut % (Auto) Lymph % (Auto) [place] % (Auto) Eos % (Auto) Baso % (Auto) Lymph # (Auto) [place] # (Auto) Baso # (Auto) Total Counted Seg Neutrophils % Band Neutrophils % Lymphocytes % (Manual) Monocytes % (Manual) Eosinophils % (Manual) Metamyelocytes % Neutrophils # (Manual) RBC Morphology Sodium Potassium Chloride Carbon Dioxide BUN Creatinine Estimated GFR BUN/Creatinine Ratio Glucose Hemoglobin A1c Lactate Calcium Magnesium 1.7 Total Bilirubin AST ALT Alkaline Phosphatase Troponin I NT-Pro-B Natriuret Pep Total Protein Albumin Globulin Albumin/Globulin Ratio Procalcitonin Urine Color Urine Appearance Urine pH Ur Specific [place] Urine Protein Urine Glucose (UA) Urine Ketones Urine Occult Blood Urine Nitrate Urine Bilirubin Urine Urobilinogen Ur Leukocyte Esterase Urine RBC Urine WBC Amorphous Sediment Urine Bacteria Ur Culture Indicated? Ur Random Sodium Urine Creatinine Assessment & Plan Assessment and plan (1) Allergic reaction: Status: Acute Plan: -Continue methylprednisolone/famotidine (2) Cellulitis of finger: Status: Acute Plan: -Continue Zyvox, metronidazole, ceftriaxone -Orthopedics following (3) Troponin level elevated: Problem details: Probably due to tachycardia Status: Acute Plan: -Trend -Consider 2-D echo (4) Tachycardia: Status: Acute Plan: -Continue diltiazen infusion (5) Hypertension: Status: Acute Plan: -Continue metoprolol (6) Hyperlipidemia associated with type 2 diabetes mellitus: Status: Acute Plan: -Outpatient statin is on hold (7) Controlled type 2 diabetes mellitus: Status: Acute Plan: -Follow
[2021-02-17 14:40] LABS: INR 1.8 (0.9-1.3); Prothrombin Time 21.1 SECONDS (10.1-12.7)
[2021-02-17 15:01] LABS: Troponin I 0.242 ng/mL (0.01-0.034)
[2021-02-17 15:02] LABS: C-Reactive Protein Quant 18.8 mg/dL (<1.0)
[2021-02-17 15:05] LABS: Creatine Kinase 4611 U/L (55-170)
[2021-02-17 15:13] LABS: Erythrocyte Sedimentation Rate 33 MM/HR (0-15)
--- NOTE | 2021-02-17 16:47 | PM.PN.1 ---
Subjective Subjective Date Patient Seen: 02/17/21 Time Patient Seen: 16:47 Interval history: Patient has been moved to the ICU due to continued issues with the allergic reaction to his previous antibiotics. But overall his finger has continued to improve. Exam Vital Signs (past 8 hours): - 02/17/21 08:56 02/17/21 09:07 02/17/21 09:30 Temperature 102.3 F H Pulse Rate 140 H 141 H 130 H Respiratory Rate 40 H 37 H Blood Pressure 125/76 125/76 Pulse Oximetry 92 94 02/17/21 10:00 02/17/21 10:01 02/17/21 11:00 Temperature Pulse Rate 117 H 115 H 105 H Respiratory Rate 32 H 30 H Blood Pressure 122/68 122/68 117/63 Pulse Oximetry 95 95 02/17/21 12:00 02/17/21 12:01 02/17/21 13:00 Temperature Pulse Rate 103 H 103 H 103 H Respiratory Rate 28 H 30 H 26 H Blood Pressure 123/57 L Pulse Oximetry 96 96 92 02/17/21 14:00 02/17/21 14:09 02/17/21 15:00 Temperature Pulse Rate 96 H 92 H 88 Respiratory Rate 27 H 22 24 Blood Pressure 128/68 Pulse Oximetry 02/17/21 15:30 02/17/21 16:00 Temperature Pulse Rate 96 H 99 H Respiratory Rate 31 H 31 H Blood Pressure Pulse Oximetry Oxygen Delivery Method Nasal Cannula Oxygen Flow Rate 4 Narrative Exam Narrative: Patient still has some residual redness to this finger but the swelling has continued to go down. Still no signs of any fluid collections or abscess formation. Patient still has pain-free range of motion of the finger it is nontender to palpation throughout the finger or the flexor or extensor tendons. Objective Labs Result Diagrams: 02/17/21 10:00 02/17/21 10:00 Labs: Laboratory Results - last 24 hr 02/16/21 02/16/21 02/17/21 17:00 17:00 05:30 WBC RBC Hgb Hct MCV MCH MCHC RDW Plt Count Neut % (Auto) Lymph % (Auto) [place] % (Auto) Eos % (Auto) Baso % (Auto) Lymph # (Auto) [place] # (Auto) Baso # (Auto) Total Counted Seg Neutrophils % Band Neutrophils % Lymphocytes % (Manual) Monocytes % (Manual) Eosinophils % (Manual) Metamyelocytes % Neutrophils # (Manual) RBC Morphology ESR PT INR Sodium Potassium Chloride Carbon Dioxide BUN Creatinine Estimated GFR BUN/Creatinine Ratio Glucose Hemoglobin A1c 6.2 H Calcium Magnesium Total Bilirubin AST ALT Alkaline Phosphatase Total Creatine Kinase Troponin I C-Reactive Protein NT-Pro-B Natriuret Pep Total Protein Albumin Globulin Albumin/Globulin Ratio Procalcitonin Urine Color Yellow Urine Appearance Clear Urine pH 5.0 Ur Specific [place] 1.025 Urine Protein 1+ H Urine Glucose (UA) 1+ H Urine Ketones Trace H Urine Occult Blood 3+ H Urine Nitrate Negative Urine Bilirubin Negative Urine Urobilinogen 0.2 Ur Leukocyte Esterase Negative Urine RBC 0-1/hpf Urine WBC 0-1/hpf Amorphous Sediment 1+ Urine Bacteria None seen Ur Culture Indicated? Cult not indicated Ur Random Sodium 116 H Urine Creatinine 133.0 02/17/21 02/17/21 02/17/21 05:30 05:30 05:30 WBC 16.2 H RBC 4.00 L Hgb 13.1 L Hct 38.7 L MCV 96.7 MCH 32.8 MCHC 33.9 RDW 13.8 Plt Count 127 L Neut % (Auto) Not Reportable Lymph % (Auto) Not Reportable [place] % (Auto) Not Reportable Eos % (Auto) Not Reportable Baso % (Auto) Not Reportable Lymph # (Auto) Not Reportable [place] # (Auto) Not Reportable Baso # (Auto) Not Reportable Total Counted 100 Seg Neutrophils % 71.0 H Band Neutrophils % 19.0 H Lymphocytes % (Manual) 4.0 L Monocytes % (Manual) 2.0 Eosinophils % (Manual) 1.0 L Metamyelocytes % 3.0 H Neutrophils # (Manual) 22595 H RBC Morphology Not Reportable ESR PT INR Sodium 132 L Potassium 4.6 Chloride 101 Carbon Dioxide 19 L BUN 30 H Creatinine 1.31 H Estimated GFR 52.9 L BUN/Creatinine Ratio 22.9 H Glucose 186 H Hemoglobin A1c Calcium 8.5 Magnesium 1.6 Total Bilirubin AST ALT Alkaline Phosphatase Total Creatine Kinase Troponin I C-Reactive Protein NT-Pro-B Natriuret Pep 1010 H Total Protein Albumin Globulin Albumin/Globulin Ratio Procalcitonin 3.64 H Urine Color Urine Appearance Urine pH Ur Specific [place] Urine Protein Urine Glucose (UA) Urine Ketones Urine Occult Blood Urine Nitrate Urine Bilirubin Urine Urobilinogen Ur Leukocyte Esterase Urine RBC Urine WBC Amorphous Sediment Urine Bacteria Ur Culture Indicated? Ur Random Sodium Urine Creatinine 02/17/21 02/17/21 02/17/21 10:00 10:00 10:00 WBC RBC Hgb Hct MCV MCH MCHC RDW Plt Count Neut % (Auto) Lymph % (Auto) [place] % (Auto) Eos % (Auto) Baso % (Auto) Lymph # (Auto) [place] # (Auto) Baso # (Auto) Total Counted Seg Neutrophils % Band Neutrophils % Lymphocytes % (Manual) Monocytes % (Manual) Eosinophils % (Manual) Metamyelocytes % Neutrophils # (Manual) RBC Morphology ESR PT INR Sodium 132 L Potassium 4.4 Chloride 101 Carbon Dioxide 19 L BUN 30 H Creatinine 1.36 H Estimated GFR 50.7 L BUN/Creatinine Ratio 22.1 H Glucose 165 H Hemoglobin A1c Calcium 8.6 Magnesium Total Bilirubin 0.6 AST 98 H ALT 36 Alkaline Phosphatase 28 L Total Creatine Kinase Troponin I 0.162 H* C-Reactive Protein NT-Pro-B Natriuret Pep 1040 H Total Protein 6.5 Albumin 3.7 Globulin 2.8 Albumin/Globulin Ratio 1.3 Procalcitonin Urine Color Urine Appearance Urine pH Ur Specific [place] Urine Protein Urine Glucose (UA) Urine Ketones Urine Occult Blood Urine Nitrate Urine Bilirubin Urine Urobilinogen Ur Leukocyte Esterase Urine RBC Urine WBC Amorphous Sediment Urine Bacteria Ur Culture Indicated? Ur Random Sodium Urine Creatinine 02/17/21 02/17/21 02/17/21 10:00 10:00 14:09 WBC 15.6 H RBC 3.93 L Hgb 12.8 L Hct 38.1 L MCV 96.8 MCH 32.5 MCHC 33.6 RDW 13.8 Plt Count 125 L Neut % (Auto) Not Reportable Lymph % (Auto) Not Reportable [place] % (Auto) Not Reportable Eos % (Auto) Not Reportable Baso % (Auto) Not Reportable Lymph # (Auto) Not Reportable [place] # (Auto) Not Reportable Baso # (Auto) Not Reportable Total Counted 100 Seg Neutrophils % 82.0 H Band Neutrophils % 13.0 H Lymphocytes % (Manual) 2.0 L Monocytes % (Manual) Eosinophils % (Manual) Metamyelocytes % 3.0 H Neutrophils # (Manual) 56376 H RBC Morphology Normal morphology ESR 33 H PT INR Sodium Potassium Chloride Carbon Dioxide BUN Creatinine Estimated GFR BUN/Creatinine Ratio Glucose Hemoglobin A1c Calcium Magnesium 1.7 Total Bilirubin AST ALT Alkaline Phosphatase Total Creatine Kinase Troponin I C-Reactive Protein NT-Pro-B Natriuret Pep Total Protein Albumin Globulin Albumin/Globulin Ratio Procalcitonin Urine Color Urine Appearance Urine pH Ur Specific [place] Urine Protein Urine Glucose (UA) Urine Ketones Urine Occult Blood Urine Nitrate Urine Bilirubin Urine Urobilinogen Ur Leukocyte Esterase Urine RBC Urine WBC Amorphous Sediment Urine Bacteria Ur Culture Indicated? Ur Random Sodium Urine Creatinine 02/17/21 02/17/21 02/17/21 14:09 14:09 14:09 WBC RBC Hgb Hct MCV MCH MCHC RDW Plt Count Neut % (Auto) Lymph % (Auto) [place] % (Auto) Eos % (Auto) Baso % (Auto) Lymph # (Auto) [place] # (Auto) Baso # (Auto) Total Counted Seg Neutrophils % Band Neutrophils % Lymphocytes % (Manual) Monocytes % (Manual) Eosinophils % (Manual) Metamyelocytes % Neutrophils # (Manual) RBC Morphology ESR PT 21.1 H INR 1.8 H Sodium Potassium Chloride Carbon Dioxide BUN Creatinine Estimated GFR BUN/Creatinine Ratio Glucose Hemoglobin A1c Calcium Magnesium Total Bilirubin AST ALT Alkaline Phosphatase Total Creatine Kinase 4611 H Troponin I C-Reactive Protein 18.8 H NT-Pro-B Natriuret Pep Total Protein Albumin Globulin Albumin/Globulin Ratio Procalcitonin Urine Color Urine Appearance Urine pH Ur Specific [place] Urine Protein Urine Glucose (UA) Urine Ketones Urine Occult Blood Urine Nitrate Urine Bilirubin Urine Urobilinogen Ur Leukocyte Esterase Urine RBC Urine WBC Amorphous Sediment Urine Bacteria Ur Culture Indicated? Ur Random Sodium Urine Creatinine 02/17/21 14:09 WBC RBC Hgb Hct MCV MCH MCHC RDW Plt Count Neut % (Auto) Lymph % (Auto) [place] % (Auto) Eos % (Auto) Baso % (Auto) Lymph # (Auto) [place] # (Auto) Baso # (Auto) Total Counted Seg Neutrophils % Band Neutrophils % Lymphocytes % (Manual) Monocytes % (Manual) Eosinophils % (Manual) Metamyelocytes % Neutrophils # (Manual) RBC Morphology ESR PT INR Sodium Potassium Chloride Carbon Dioxide BUN Creatinine Estimated GFR BUN/Creatinine Ratio Glucose Hemoglobin A1c Calcium Magnesium Total Bilirubin AST ALT Alkaline Phosphatase Total Creatine Kinase Troponin I 0.242 H* C-Reactive Protein NT-Pro-B Natriuret Pep Total Protein Albumin Globulin Albumin/Globulin Ratio Procalcitonin Urine Color Urine Appearance Urine pH Ur Specific [place] Urine Protein Urine Glucose (UA) Urine Ketones Urine Occult Blood Urine Nitrate Urine Bilirubin Urine Urobilinogen Ur Leukocyte Esterase Urine RBC Urine WBC Amorphous Sediment Urine Bacteria Ur Culture Indicated? Ur Random Sodium Urine Creatinine PFSH Social History household members: spouse Smoking Status: Former smoker alcohol intake: current Assessment & Plan Assessment & Plan narrative: Patient continuing to make improvements in regards to his left ring finger cellulitis. At this point do not see anything that would require any surgical treatment. If patient has worsening of redness and swelling the next step would be an MRI of his ring finger. Time Spent With Patient Critical Care time: I spent a total of [] minutes of critical care time on this patient's care today; this time is exclusive of procedural time. Quality VTE Deep Vein Thrombosis/Pulmonary Embolism Present on Admission: No
[2021-02-17 17:36] LABS: HIV 1 & 2 Ab/Ag 4th Gen Combo NEGATIVE (NEGATIVE); Hep C Virus Ab w/Reflex Quant NEGATIVE s/c (NEGATIVE)
[2021-02-17] MEDS: MAGNESIUM CHLORIDE 64 MG TABLET 128 MG PO (17:36)
--- NOTE | 2021-02-17 17:47 | PC.NURSE ---
Assumed care of pt, Dilt gtt started per order, ST heart rate in the 140's, titrated per protocol. LR infusing as ordered. Pt currently febrile at 102.0, Cooling measures of ice packs axillae and in groin with wet towels over chest and arms to provide comfort from Hives that cover pts whole body. New orders received from Hospitalist, ICU tele-med doctor contacted via portable tele unit, report given. Continue to treat and monitor as ordered, bed low and locked, call light within reach, will continue to monitor
[2021-02-17] MEDS: LACTATED RINGERS 1,000 ML 100 ML IV (18:53)
[2021-02-17 19:48] LABS: Troponin I 0.175 ng/mL (0.01-0.034)
--- NOTE | 2021-02-17 20:02 | PM.ICURNDS ---
- :: This patient was seen via real time interactive two-way audiovisual telecommunication. Note: Multidisciplinary rounds completed. Currently in SR with HR 100 on diltiaizem infusion 12.5 mg/hr infusion. Will titrate down diltiazem infusion, restart metoprolol, and replete magnesium with 2 gram sof magnesium sulfate. Case d/w RN at bedside.
[2021-02-17] MEDS: MAGNESIUM SULFATE 2 GM/50 ML PIGGYBACK IV (20:41)
[2021-02-17] MEDS: METOPROLOL IR 50 MG TABLET PO (20:41)
--- NOTE | 2021-02-17 21:33 | PM.PN.1 ---
Subjective Subjective Interval history: Patient reports somewhat improved itchiness from yesterday. He denies any CP, feeling palpitations, sensing that his heart is racing, anxiety. He reports improvement in his left ring finger infection, too. Exam Vital Signs (past 8 hours): - 02/17/21 14:00 02/17/21 14:09 02/17/21 15:00 Temperature Pulse Rate 96 H 92 H 88 Respiratory Rate 27 H 22 24 Blood Pressure 128/68 Pulse Oximetry 02/17/21 15:30 02/17/21 16:00 02/17/21 16:30 Temperature Pulse Rate 96 H 99 H 86 Respiratory Rate 31 H 31 H 22 Blood Pressure Pulse Oximetry 02/17/21 17:00 02/17/21 17:30 02/17/21 19:28 Temperature 97.1 F L Pulse Rate 81 98 H 100 H Respiratory Rate 22 33 H 32 H Blood Pressure 146/71 H Pulse Oximetry 94 02/17/21 20:00 02/17/21 20:16 Temperature 98.5 F Pulse Rate 103 H 103 H Respiratory Rate 25 H 18 Blood Pressure 144/63 H Pulse Oximetry 95 98 Oxygen Delivery Method Nasal Cannula Oxygen Flow Rate 1 Narrative Exam Narrative: Const Other: Patient laying in bed comfortably upon my entering the room, in no apparent acute distress, and he is itching his abdomen. HENMT Other: Upper and lower lip swelling noted, does not appear or feel tense. Patient is able to speak fluently. Eyes Other: No scleral icterus appreciated. No periorbital swelling appreciated. Cardio Other: Tachycardic rate with regular rhythm. S1 and S2 heart sounds auscultated with no extra heart sounds or murmurs appreciated. No peripheral edema noted. GI Other: Soft, non-distended, non-tender. Bowel sounds present. Skin Other: Hives and wheals appreciated diffusely over the patient's body habitus. Extrem Other: Palpable and equal radial and dorsalis pedis pulses bilaterally. Objective Labs Result Diagrams: 02/17/21 10:00 02/17/21 10:00 Labs: Laboratory Results - last 24 hr 02/17/21 02/17/21 02/17/21 05:30 05:30 05:30 WBC 16.2 H RBC 4.00 L Hgb 13.1 L Hct 38.7 L MCV 96.7 MCH 32.8 MCHC 33.9 RDW 13.8 Plt Count 127 L Neut % (Auto) Not Reportable Lymph % (Auto) Not Reportable [place] % (Auto) Not Reportable Eos % (Auto) Not Reportable Baso % (Auto) Not Reportable Lymph # (Auto) Not Reportable [place] # (Auto) Not Reportable Baso # (Auto) Not Reportable Total Counted 100 Seg Neutrophils % 71.0 H Band Neutrophils % 19.0 H Lymphocytes % (Manual) 4.0 L Monocytes % (Manual) 2.0 Eosinophils % (Manual) 1.0 L Metamyelocytes % 3.0 H Neutrophils # (Manual) 97926 H RBC Morphology Not Reportable ESR PT INR Sodium 132 L Potassium 4.6 Chloride 101 Carbon Dioxide 19 L BUN 30 H Creatinine 1.31 H Estimated GFR 52.9 L BUN/Creatinine Ratio 22.9 H Glucose 186 H Hemoglobin A1c 6.2 H Calcium 8.5 Magnesium 1.6 Total Bilirubin AST ALT Alkaline Phosphatase Total Creatine Kinase Troponin I C-Reactive Protein NT-Pro-B Natriuret Pep Total Protein Albumin Globulin Albumin/Globulin Ratio Procalcitonin Hepatitis C Antibody HIV 1&2 Ab/P24 Ag 4thGn 02/17/21 02/17/21 02/17/21 05:30 10:00 10:00 WBC RBC Hgb Hct MCV MCH MCHC RDW Plt Count Neut % (Auto) Lymph % (Auto) [place] % (Auto) Eos % (Auto) Baso % (Auto) Lymph # (Auto) [place] # (Auto) Baso # (Auto) Total Counted Seg Neutrophils % Band Neutrophils % Lymphocytes % (Manual) Monocytes % (Manual) Eosinophils % (Manual) Metamyelocytes % Neutrophils # (Manual) RBC Morphology ESR PT INR Sodium 132 L Potassium 4.4 Chloride 101 Carbon Dioxide 19 L BUN 30 H Creatinine 1.36 H Estimated GFR 50.7 L BUN/Creatinine Ratio 22.1 H Glucose 165 H Hemoglobin A1c Calcium 8.6 Magnesium Total Bilirubin 0.6 AST 98 H ALT 36 Alkaline Phosphatase 28 L Total Creatine Kinase Troponin I C-Reactive Protein NT-Pro-B Natriuret Pep 1010 H 1040 H Total Protein 6.5 Albumin 3.7 Globulin 2.8 Albumin/Globulin Ratio 1.3 Procalcitonin 3.64 H Hepatitis C Antibody HIV 1&2 Ab/P24 Ag 4thGn 02/17/21 02/17/21 02/17/21 10:00 10:00 10:00 WBC 15.6 H RBC 3.93 L Hgb 12.8 L Hct 38.1 L MCV 96.8 MCH 32.5 MCHC 33.6 RDW 13.8 Plt Count 125 L Neut % (Auto) Not Reportable Lymph % (Auto) Not Reportable [place] % (Auto) Not Reportable Eos % (Auto) Not Reportable Baso % (Auto) Not Reportable Lymph # (Auto) Not Reportable [place] # (Auto) Not Reportable Baso # (Auto) Not Reportable Total Counted 100 Seg Neutrophils % 82.0 H Band Neutrophils % 13.0 H Lymphocytes % (Manual) 2.0 L Monocytes % (Manual) Eosinophils % (Manual) Metamyelocytes % 3.0 H Neutrophils # (Manual) 44065 H RBC Morphology Normal morphology ESR PT INR Sodium Potassium Chloride Carbon Dioxide BUN Creatinine Estimated GFR BUN/Creatinine Ratio Glucose Hemoglobin A1c Calcium Magnesium 1.7 Total Bilirubin AST ALT Alkaline Phosphatase Total Creatine Kinase Troponin I 0.162 H* C-Reactive Protein NT-Pro-B Natriuret Pep Total Protein Albumin Globulin Albumin/Globulin Ratio Procalcitonin Hepatitis C Antibody HIV 1&2 Ab/P24 Ag 4thGn 02/17/21 02/17/21 02/17/21 14:09 14:09 14:09 WBC RBC Hgb Hct MCV MCH MCHC RDW Plt Count Neut % (Auto) Lymph % (Auto) [place] % (Auto) Eos % (Auto) Baso % (Auto) Lymph # (Auto) [place] # (Auto) Baso # (Auto) Total Counted Seg Neutrophils % Band Neutrophils % Lymphocytes % (Manual) Monocytes % (Manual) Eosinophils % (Manual) Metamyelocytes % Neutrophils # (Manual) RBC Morphology ESR 33 H PT 21.1 H INR 1.8 H Sodium Potassium Chloride Carbon Dioxide BUN Creatinine Estimated GFR BUN/Creatinine Ratio Glucose Hemoglobin A1c Calcium Magnesium Total Bilirubin AST ALT Alkaline Phosphatase Total Creatine Kinase 4611 H Troponin I C-Reactive Protein NT-Pro-B Natriuret Pep Total Protein Albumin Globulin Albumin/Globulin Ratio Procalcitonin Hepatitis C Antibody HIV 1&2 Ab/P24 Ag 4thGn 02/17/21 02/17/21 02/17/21 14:09 14:09 14:09 WBC RBC Hgb Hct MCV MCH MCHC RDW Plt Count Neut % (Auto) Lymph % (Auto) [place] % (Auto) Eos % (Auto) Baso % (Auto) Lymph # (Auto) [place] # (Auto) Baso # (Auto) Total Counted Seg Neutrophils % Band Neutrophils % Lymphocytes % (Manual) Monocytes % (Manual) Eosinophils % (Manual) Metamyelocytes % Neutrophils # (Manual) RBC Morphology ESR PT INR Sodium Potassium Chloride Carbon Dioxide BUN Creatinine Estimated GFR BUN/Creatinine Ratio Glucose Hemoglobin A1c Calcium Magnesium Total Bilirubin AST ALT Alkaline Phosphatase Total Creatine Kinase Troponin I 0.242 H* C-Reactive Protein 18.8 H NT-Pro-B Natriuret Pep Total Protein Albumin Globulin Albumin/Globulin Ratio Procalcitonin Hepatitis C Antibody Negative HIV 1&2 Ab/P24 Ag 4thGn Negative 02/17/21 18:35 WBC RBC Hgb Hct MCV MCH MCHC RDW Plt Count Neut % (Auto) Lymph % (Auto) [place] % (Auto) Eos % (Auto) Baso % (Auto) Lymph # (Auto) [place] # (Auto) Baso # (Auto) Total Counted Seg Neutrophils % Band Neutrophils % Lymphocytes % (Manual) Monocytes % (Manual) Eosinophils % (Manual) Metamyelocytes % Neutrophils # (Manual) RBC Morphology ESR PT INR Sodium Potassium Chloride Carbon Dioxide BUN Creatinine Estimated GFR BUN/Creatinine Ratio Glucose Hemoglobin A1c Calcium Magnesium Total Bilirubin AST ALT Alkaline Phosphatase Total Creatine Kinase Troponin I 0.175 H* C-Reactive Protein NT-Pro-B Natriuret Pep Total Protein Albumin Globulin Albumin/Globulin Ratio Procalcitonin Hepatitis C Antibody HIV 1&2 Ab/P24 Ag 4thGn [facility] Social History household members: spouse Smoking Status: Former smoker alcohol intake: current Assessment & Plan Assessment & Plan narrative: Assessment: 1. 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 Allergic urticaria with angioedema, secondary to Bactrim 3. Left fourth finger circumscribed cellulitis 4. NESTOR, likely pre-renal 5. Sinus tachycardia 6. Acute urinary retention, likely medication-induced 7. Hx of non-insulin dependent DM II 8. Hx of hypertension 9. Hx of hyperlipidemia Plan: 1. As evidenced by recent Bactrim allergy, and possible visceral organ involvement, given elevated Cr, CPK, LFT's, persistent tachycardia. Will increase Solumedrol to IV 250 mg daily for 3 days total, and can then taper down. 2. As per HPI, this likely occurred secondary to Bactrim. Given IV Solumedrol 125 mg in the ER, and will continue that dose as scheduled in the proceeding days. Encouraged cold compresses for symptomatic relief. If itching is intolerable, can start IV famotidine. 3. Will start IV linezolid for gram positive coverage, including MRSA, and IV ceftriaxone for gram negative coverage, will add anaerobic coverage today with IV Flagyl, due to elevated temperatures, although elevated temps could be due to systemic inflammation from problem 1. 4. FENa consistent with pre-renal causes. Could be related to problem 1, too. Cr improving. 5. Possibly has occurred as a manifestation of problem 1. Has improved while on IV diltiazem drip at 10 mg/hr. Will plan to transition to PO diltiazem to wean off IV gtt. 6. Likely occurred secondary to IV Benadryl. Straight cath removed 800 cc's urine. 7. Patient reports being on metformin at home. A1c ordered. Insulin sliding scale in place. 8. Patient does not recall his medications or doses, and reports she will bring them in for reconciliation. 9. Same as problem 7. VTE prophylaxis: Heparin 5000 units tid Disposition: Home, once clinically stable Time Spent With Patient Critical Care time: I spent a total of [] minutes of critical care time on this patient's care today; this time is exclusive of procedural time. Quality VTE Deep Vein Thrombosis/Pulmonary Embolism Present on Admission: No
[2021-02-18] VITALS (53 sets, daily range): BP systolic 94–152; BP diastolic 55–83; PULSE 66–87; RESP 14–43; TEMP 36–37.4; O2SAT 87–100
[2021-02-18] MEDS: metroNIDAZOLE 500 MG/100 ML PIGGYBACK 100 MG IV ×4 (00:21→23:07)
[2021-02-18] MEDS: ACETAMINOPHEN 325 MG TABLET 650 MG PO (00:27)
[2021-02-18] MEDS: ZOLPIDEM 5 MG TABLET 10 MG PO ×2 (02:16→23:07)
[2021-02-18 03:45] LABS: HBsAg Screen Negative (Negative); Hep A AB IgM Negative (Negative); Hepatitis A Ab, Total Negative (Negative); Hepatitis B Core Antibody IgM Negative (Negative); Hepatitis B Core Total Negative (Negative); Hepatitis B Surface AB, Qual Non Reactive (.); Hepatitis C Virus Ab <0.1 s/co ratio (0.0-0.9)
[2021-02-18 05:34] LABS: Hematocrit 37.2 % (41-53); Hemoglobin 12.6 g/dL (13.5-17.5); Mean Corpuscular HGB Conc 33.9 % (30-36); Mean Corpuscular Hemoglobin 32.8 PG (26-34); Mean Corpuscular Volume 96.7 fL (80-100); Platelet Count 139 X10^3/uL (150-400); Red Blood Cell Count 3.85 X10^6/uL (4.5-5.9); Red Cell Distribution Width 13.5 % (11.6-14.8)
[2021-02-18 05:35] LABS: Add Manual Diff / Slide Review YES
[2021-02-18 05:40] LABS: BUN Creatinine Ratio 31.4 (6-22); Blood Urea Nitrogen 37 mg/dL (9-20); Calcium 8.2 mg/dL (8.4-10.2); Carbon Dioxide 24 mmol/L (22-32); Chloride 101 mmol/L (98-107); Estimated Glomerular Filt Rate 59.7 mL/min (>60); Glucose 174 mg/dL (80-110); HEMOLYSIS < 15 (0-50); Magnesium 2.3 mg/dL (1.6-2.3); Potassium 4.2 mmol/L (3.4-5.1); Sodium 133 mmol/L (137-145)
[2021-02-18] MEDS: LINEZOLID 600 MG/300 ML IV.SOLN IV ×2 (06:22→16:49)
[2021-02-18] MEDS: LACTATED RINGERS 1,000 ML 100 ML IV ×2 (06:22→15:41)
[2021-02-18] MEDS: HEPARIN 5,000 UNIT/ML VIAL 5000 UNIT SUBCUT ×3 (06:22→20:46)
[2021-02-18 06:48] LABS: Total Cells Counted 100
[2021-02-18 06:49] LABS: Neutrophils Absolute Manual 13300 /uL (3000-5900); Toxic Vacuolation Present
--- NOTE | 2021-02-18 07:29 | PC.NURSE ---
Shift Note-Diltiazem gtt decreased to 5mg/hr at 1999 during rounds with [address] Dr Novoa, then DC'd one hour after 50mg PO metoprolol given, has been SR most of the night, BP stable, see vital trends. Jackyien ordered from Dr Yañez, patient states PO Ativan is not working this time, cold compresses to forearms d/t itching.
[2021-02-18] MEDS: methylPREDNISolone 125 MG/2 ML VIAL 250 MG IV (08:35)
[2021-02-18] MEDS: FAMOTIDINE 20 MG/2 ML VIAL IV ×2 (08:36→20:43)
--- NOTE | 2021-02-18 09:16 | PM.PN.1 ---
Subjective Subjective Date Patient Seen: 02/18/21 Time Patient Seen: 09:16 Interval history: Joshua is a 80-year-old male in the ICU for severe allergic reaction to Bactrim has a left 4th finger infection. He is extremely hard of hearing. Sleeping this morning. Stable vital signs. Per report has had improving pain and appearance of his left 4th digit Exam Vital Signs (past 8 hours): - 02/18/21 02:00 02/18/21 04:00 02/18/21 04:30 Temperature 97.3 F L Pulse Rate 84 78 Respiratory Rate 33 H 25 H Blood Pressure 144/67 H 94/55 L Pulse Oximetry 96 95 95 Oxygen Delivery Method Room Air Oxygen Flow Rate 2 Narrative Exam Narrative: Sleeping soundly this morning. Extremely hard of hearing. Stable vital signs on monitoring. Left 4th finger is examined mild erythema and swelling. Skin wrinkles are present. No pain with passive stretch flexion or extension. No evidence of ascending cellulitis. Hives present over torso Objective Labs Result Diagrams: 02/18/21 05:15 02/18/21 05:15 Labs: Laboratory Results - last 24 hr 02/17/21 02/17/21 02/17/21 10:00 10:00 10:00 WBC RBC Hgb Hct MCV MCH MCHC RDW Plt Count Neut % (Auto) Lymph % (Auto) [place] % (Auto) Eos % (Auto) Baso % (Auto) Lymph # (Auto) [place] # (Auto) Baso # (Auto) Total Counted Seg Neutrophils % Band Neutrophils % Lymphocytes % (Manual) Monocytes % (Manual) Eosinophils % (Manual) Basophils % (Manual) Metamyelocytes % Neutrophils # (Manual) Toxic Vacuolation RBC Morphology ESR PT INR Sodium 132 L Potassium 4.4 Chloride 101 Carbon Dioxide 19 L BUN 30 H Creatinine 1.36 H Estimated GFR 50.7 L BUN/Creatinine Ratio 22.1 H Glucose 165 H Calcium 8.6 Magnesium Total Bilirubin 0.6 AST 98 H ALT 36 Alkaline Phosphatase 28 L Total Creatine Kinase Troponin I 0.162 H* C-Reactive Protein NT-Pro-B Natriuret Pep 1040 H Total Protein 6.5 Albumin 3.7 Globulin 2.8 Albumin/Globulin Ratio 1.3 Hep A IgM Ab Confirm Hepatitis A Ab Total Hep Bs Antigen Hep Bs Antibody Hep B Core Total Ab Hep B Core IgM Ab Hepatitis C Antibody HIV 1&2 Ab/P24 Ag 4thGn 02/17/21 02/17/21 02/17/21 10:00 10:00 14:09 WBC 15.6 H RBC 3.93 L Hgb 12.8 L Hct 38.1 L MCV 96.8 MCH 32.5 MCHC 33.6 RDW 13.8 Plt Count 125 L Neut % (Auto) Not Reportable Lymph % (Auto) Not Reportable [place] % (Auto) Not Reportable Eos % (Auto) Not Reportable Baso % (Auto) Not Reportable Lymph # (Auto) Not Reportable [place] # (Auto) Not Reportable Baso # (Auto) Not Reportable Total Counted 100 Seg Neutrophils % 82.0 H Band Neutrophils % 13.0 H Lymphocytes % (Manual) 2.0 L Monocytes % (Manual) Eosinophils % (Manual) Basophils % (Manual) Metamyelocytes % 3.0 H Neutrophils # (Manual) 37079 H Toxic Vacuolation RBC Morphology Normal morphology ESR 33 H PT INR Sodium Potassium Chloride Carbon Dioxide BUN Creatinine Estimated GFR BUN/Creatinine Ratio Glucose Calcium Magnesium 1.7 Total Bilirubin AST ALT Alkaline Phosphatase Total Creatine Kinase Troponin I C-Reactive Protein NT-Pro-B Natriuret Pep Total Protein Albumin Globulin Albumin/Globulin Ratio Hep A IgM Ab Confirm Hepatitis A Ab Total Hep Bs Antigen Hep Bs Antibody Hep B Core Total Ab Hep B Core IgM Ab Hepatitis C Antibody HIV 1&2 Ab/P24 Ag 4thGn 02/17/21 02/17/21 02/17/21 14:09 14:09 14:09 WBC RBC Hgb Hct MCV MCH MCHC RDW Plt Count Neut % (Auto) Lymph % (Auto) [place] % (Auto) Eos % (Auto) Baso % (Auto) Lymph # (Auto) [place] # (Auto) Baso # (Auto) Total Counted Seg Neutrophils % Band Neutrophils % Lymphocytes % (Manual) Monocytes % (Manual) Eosinophils % (Manual) Basophils % (Manual) Metamyelocytes % Neutrophils # (Manual) Toxic Vacuolation RBC Morphology ESR PT 21.1 H INR 1.8 H Sodium Potassium Chloride Carbon Dioxide BUN Creatinine Estimated GFR BUN/Creatinine Ratio Glucose Calcium Magnesium Total Bilirubin AST ALT Alkaline Phosphatase Total Creatine Kinase 4611 H Troponin I C-Reactive Protein NT-Pro-B Natriuret Pep Total Protein Albumin Globulin Albumin/Globulin Ratio Hep A IgM Ab Confirm Hepatitis A Ab Total Hep Bs Antigen Hep Bs Antibody Hep B Core Total Ab Hep B Core IgM Ab Hepatitis C Antibody Negative HIV 1&2 Ab/P24 Ag 4thGn Negative 02/17/21 02/17/21 02/17/21 14:09 14:09 14:09 WBC RBC Hgb Hct MCV MCH MCHC RDW Plt Count Neut % (Auto) Lymph % (Auto) [place] % (Auto) Eos % (Auto) Baso % (Auto) Lymph # (Auto) [place] # (Auto) Baso # (Auto) Total Counted Seg Neutrophils % Band Neutrophils % Lymphocytes % (Manual) Monocytes % (Manual) Eosinophils % (Manual) Basophils % (Manual) Metamyelocytes % Neutrophils # (Manual) Toxic Vacuolation RBC Morphology ESR PT INR Sodium Potassium Chloride Carbon Dioxide BUN Creatinine Estimated GFR BUN/Creatinine Ratio Glucose Calcium Magnesium Total Bilirubin AST ALT Alkaline Phosphatase Total Creatine Kinase Troponin I 0.242 H* C-Reactive Protein 18.8 H NT-Pro-B Natriuret Pep Total Protein Albumin Globulin Albumin/Globulin Ratio Hep A IgM Ab Confirm Negative Hepatitis A Ab Total Negative Hep Bs Antigen Negative Hep Bs Antibody Non reactive Hep B Core Total Ab Negative Hep B Core IgM Ab Negative Hepatitis C Antibody <0.1 HIV 1&2 Ab/P24 Ag 4thGn 02/17/21 02/18/21 02/18/21 18:35 05:15 05:15 WBC 14.0 H RBC 3.85 L Hgb 12.6 L Hct 37.2 L MCV 96.7 MCH 32.8 MCHC 33.9 RDW 13.5 Plt Count 139 L Neut % (Auto) Not Reportable Lymph % (Auto) Not Reportable [place] % (Auto) Not Reportable Eos % (Auto) Not Reportable Baso % (Auto) Not Reportable Lymph # (Auto) Not Reportable [place] # (Auto) Not Reportable Baso # (Auto) Not Reportable Total Counted 100 Seg Neutrophils % 78.0 H Band Neutrophils % 17.0 H Lymphocytes % (Manual) 2.0 L Monocytes % (Manual) 1.0 L Eosinophils % (Manual) 1.0 L Basophils % (Manual) 1.0 Metamyelocytes % Neutrophils # (Manual) 92702 H Toxic Vacuolation Present H RBC Morphology See below ESR PT INR Sodium 133 L Potassium 4.2 Chloride 101 Carbon Dioxide 24 BUN 37 H Creatinine 1.18 Estimated GFR 59.7 L BUN/Creatinine Ratio 31.4 H Glucose 174 H Calcium 8.2 L Magnesium 2.3 Total Bilirubin AST ALT Alkaline Phosphatase Total Creatine Kinase Troponin I 0.175 H* C-Reactive Protein NT-Pro-B Natriuret Pep Total Protein Albumin Globulin Albumin/Globulin Ratio Hep A IgM Ab Confirm Hepatitis A Ab Total Hep Bs Antigen Hep Bs Antibody Hep B Core Total Ab Hep B Core IgM Ab Hepatitis C Antibody HIV 1&2 Ab/P24 [facility]n [facility] Social History household members: spouse Smoking Status: Former smoker alcohol intake: current Assessment & Plan Assessment and plan (1) Cellulitis of finger: Status: Acute Plan Left ring finger cellulitis. No fluctuance. No evidence of drainable abscess. No current surgical indication. Recommend continued treatment with antibiotics. For any worsening appearance would do MRI of the digit as recommended by Dr. Gomez. At this point appears to be resolving with current care Time Spent With Patient Time with patient: less than 30 minutes Critical Care time: I spent a total of [] minutes of critical care time on this patient's care today; this time is exclusive of procedural time. Quality VTE Deep Vein Thrombosis/Pulmonary Embolism Present on Admission: No
[2021-02-18] MEDS: INSULIN LISPRO 100 UNIT/ML 3ML VIAL SUBCUT ×4 (09:45→20:43)
[2021-02-18] MEDS: cefTRIAXone 1,000 MG in SODIUM CHLORIDE 0.9% 100 ML 200 ML IV (09:50)
[2021-02-18 10:50] LABS: Creatine Kinase 1403 U/L (55-170)
[2021-02-18 10:58] LABS: Troponin I 0.106 ng/mL (0.01-0.034)
[2021-02-18 11:24] LABS: C-Reactive Protein Quant 11.9 mg/dL (<1.0)
[2021-02-18] MEDS: METOPROLOL IR 50 MG TABLET PO ×2 (11:58→20:47)
--- NOTE | 2021-02-18 12:11 | CM.DANOTE ---
DCP: Case received, EMR reviewed and met with patient. Spouse, Merly, was also at bedside. Introduced self and role. Was able to obtain information regarding patient's baseline activity status prior to hospitalization. DCP assessment completed with information currently available. Patient is 80 year old male who admitted on , 02-16, to the care of the hospitalist team. PCP: Dr. Calderon. Payer: confirmed: [facility]. Patient came to the hospital via ambulance secondary to a possible allergic reaction to a medication. Patient had developed a rash on all of his extremities with itching, as well as starting to have some difficulty breathing and mobilizing. Patient had recently started Bactrim for an infected finger, which he was prescribed by the walk in clinic at [facility] in [place]. He is currently here being treated for potential reaction to medication. Patient also has history of diabetes. Met with patient in his room. He was sitting up in bed, alert and oriented. Spouse, Merly, was also at bedside. Confirmed that he and spouse reside in [place], and he is independent at his baseline. Spouse indicated, he originally was treated for his finger, that he noticed after he was carrying firewood. P: DCP to continue to follow. Patient should be able to go home when he is deemed medically stable. He does not currently have P.T orders, will need to check in with nursing as far as how patient is ambulating. Martha Nieto RN/Poising Inspector Discharge Planning/Care Management CM Discharge Assessment Start: 02/18/21 12:09 Freq: Status: Active Protocol: Document 02/18/21 12:10 (Rec: 02/18/21 12:11 [email or web address]) Discharge Planning Assessment Assigned Heart Surgeon Martha Nieto RN/Poising Inspector Advance Directives? Yes Advance Directives on File No History Provided By Patient,Significant Other, Medical Record Prior Living Arrangements House Household Members spouse Type of transporation used prior to Drives own vehicle admit Independent with ADL's Yes Is patient alert and oriented? Yes Caregiver for Another No Barriers to Discharge No Discharge Plan Home Transportation Arrangement Spouse Referrals Initiated None needed Whiteboard Updated in Patient Room with Yes name and ext. # of Heart Surgeon Review Status In Process Next Review Type Continued Stay Review
[2021-02-18] MEDS: ONDANSETRON 4 MG/2 ML INJ IV (12:47)
--- NOTE | 2021-02-18 13:51 | OT.IPNOTE ---
Checked on pt for OT eval, per nursing pt did not have good night and wants pt to rest at this time.
--- NOTE | 2021-02-18 14:17 | P.PN_ITS ---
Subjective Subjective Date Patient Seen: 02/18/21 Interval history: He is seen in his room today to follow-up the sulfa allergy rash along with multiple other laboratory abnormalities suggestive of possible DRESS syndrome. His eosinophil count is actually low at 1, against the range of 2-4. He is INR was 1.8 yesterday with a CK of 4611 and a troponin of 0.175. This CRP was 18.8 and the BNP was 1040. His blood sugars have been in the 200s. The white blood count was 14.0. He says that he feels much better and that he is moving his legs better. He says that he slept well although his reminds him that he did not sleep last night and so has been sleeping all morning. His lips are dried and cracked consistent with mucositis. Today's creatinine is 1.18 with a BNP of 1403, a troponin of 0.106 and a CRP down to 11.9. Exam Vital Signs (past 8 hours): - 02/18/21 08:00 02/18/21 09:45 02/18/21 10:44 Temperature 97.6 F Pulse Rate 69 Respiratory Rate 22 Blood Pressure 125/59 L Pulse Oximetry 95 96 87 L 02/18/21 10:45 02/18/21 11:44 Temperature 96.8 F L Pulse Rate 82 Respiratory Rate 16 Blood Pressure 122/80 Pulse Oximetry 92 94 Oxygen Delivery Method Room Air Oxygen Flow Rate 1 Narrative Exam Narrative: He is alert and oriented x3. He is still very weak, barely able to sit up in bed. No apparent distress Diffuse typical sulfa rash on his upper torso and upper arms. Round pink fading non contiguous lesions. Heart is regular rate and rhythm without murmur Lungs are clear to auscultation bilaterally Abdomen is obese, bowel sounds positive, nontender, no organomegaly Extremities have no ankle edema. The left 4th finger remains diffusely pink and slightly swollen without tenderness. It is actually more purple than pink. He has diffuse weakness and will benefit from physical therapy. Objective Labs Result Diagrams: 02/18/21 05:15 02/18/21 05:15 Labs: Laboratory Results - last 24 hr 02/17/21 02/17/21 02/17/21 14:09 14:09 14:09 WBC RBC Hgb Hct MCV MCH MCHC RDW Plt Count Neut % (Auto) Lymph % (Auto) [place] % (Auto) Eos % (Auto) Baso % (Auto) Lymph # (Auto) [place] # (Auto) Baso # (Auto) Total Counted Seg Neutrophils % Band Neutrophils % Lymphocytes % (Manual) Monocytes % (Manual) Eosinophils % (Manual) Basophils % (Manual) Neutrophils # (Manual) Toxic Vacuolation RBC Morphology ESR 33 H PT 21.1 H INR 1.8 H Sodium Potassium Chloride Carbon Dioxide BUN Creatinine Estimated GFR BUN/Creatinine Ratio Glucose Calcium Magnesium Total Creatine Kinase 4611 H Troponin I C-Reactive Protein Hep A IgM Ab Confirm Hepatitis A Ab Total Hep Bs Antigen Hep Bs Antibody Hep B Core Total Ab Hep B Core IgM Ab Hepatitis C Antibody HIV 1&2 Ab/P24 Ag 4thGn 02/17/21 02/17/21 02/17/21 14:09 14:09 14:09 WBC RBC Hgb Hct MCV MCH MCHC RDW Plt Count Neut % (Auto) Lymph % (Auto) [place] % (Auto) Eos % (Auto) Baso % (Auto) Lymph # (Auto) [place] # (Auto) Baso # (Auto) Total Counted Seg Neutrophils % Band Neutrophils % Lymphocytes % (Manual) Monocytes % (Manual) Eosinophils % (Manual) Basophils % (Manual) Neutrophils # (Manual) Toxic Vacuolation RBC Morphology ESR PT INR Sodium Potassium Chloride Carbon Dioxide BUN Creatinine Estimated GFR BUN/Creatinine Ratio Glucose Calcium Magnesium Total Creatine Kinase Troponin I C-Reactive Protein 18.8 H Hep A IgM Ab Confirm Negative Hepatitis A Ab Total Negative Hep Bs Antigen Negative Hep Bs Antibody Non reactive Hep B Core Total Ab Negative Hep B Core IgM Ab Negative Hepatitis C Antibody Negative <0.1 HIV 1&2 Ab/P24 Ag 4thGn Negative 02/17/21 02/17/21 02/18/21 14:09 18:35 05:15 WBC 14.0 H RBC 3.85 L Hgb 12.6 L Hct 37.2 L MCV 96.7 MCH 32.8 MCHC 33.9 RDW 13.5 Plt Count 139 L Neut % (Auto) Not Reportable Lymph % (Auto) Not Reportable [place] % (Auto) Not Reportable Eos % (Auto) Not Reportable Baso % (Auto) Not Reportable Lymph # (Auto) Not Reportable [place] # (Auto) Not Reportable Baso # (Auto) Not Reportable Total Counted 100 Seg Neutrophils % 78.0 H Band Neutrophils % 17.0 H Lymphocytes % (Manual) 2.0 L Monocytes % (Manual) 1.0 L Eosinophils % (Manual) 1.0 L Basophils % (Manual) 1.0 Neutrophils # (Manual) 53231 H Toxic Vacuolation Present H RBC Morphology See below ESR PT INR Sodium Potassium Chloride Carbon Dioxide BUN Creatinine Estimated GFR BUN/Creatinine Ratio Glucose Calcium Magnesium Total Creatine Kinase Troponin I 0.242 H* 0.175 H* C-Reactive Protein Hep A IgM Ab Confirm Hepatitis A Ab Total Hep Bs Antigen Hep Bs Antibody Hep B Core Total Ab Hep B Core IgM Ab Hepatitis C Antibody HIV 1&2 Ab/P24 Ag 4thGn 02/18/21 02/18/21 05:15 10:08 WBC RBC Hgb Hct MCV MCH MCHC RDW Plt Count Neut % (Auto) Lymph % (Auto) [place] % (Auto) Eos % (Auto) Baso % (Auto) Lymph # (Auto) [place] # (Auto) Baso # (Auto) Total Counted Seg Neutrophils % Band Neutrophils % Lymphocytes % (Manual) Monocytes % (Manual) Eosinophils % (Manual) Basophils % (Manual) Neutrophils # (Manual) Toxic Vacuolation RBC Morphology ESR PT INR Sodium 133 L Potassium 4.2 Chloride 101 Carbon Dioxide 24 BUN 37 H Creatinine 1.18 Estimated GFR 59.7 L BUN/Creatinine Ratio 31.4 H Glucose 174 H Calcium 8.2 L Magnesium 2.3 Total Creatine Kinase 1403 H D Troponin I 0.106 H C-Reactive Protein 11.9 H Hep A IgM Ab Confirm Hepatitis A Ab Total Hep Bs Antigen Hep Bs Antibody Hep B Core Total Ab Hep B Core IgM Ab Hepatitis C Antibody HIV 1&2 Ab/P24 Ag 4thGn [facility] Social History household members: spouse Smoking Status: Former smoker alcohol intake: current Assessment & Plan Assessment & Plan narrative: Assessment: 1. 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 Allergic urticaria with angioedema, secondary to Bactrim 3. Left fourth finger circumscribed cellulitis/localized Raynaud's/chilblains? 4. NESTOR, likely pre-renal, resolved 5. Sinus tachycardia, resolving, resolved 6. Acute urinary retention, likely medication-induced 7. Hx of non-insulin dependent DM II 8. Hx of hypertension 9. Hx of hyperlipidemia 10. Mucositis Plan: 1. As evidenced by recent Bactrim skin rash allergy, mucositis and possible visc eral organ involvement, given elevated Cr, CPK, LFT's, persistent tachycardia. Now on Solumedrol IV 250 mg daily for 3 days total, and can then taper down, beginning after 02/19. Begin PT/OT due to diffuse weakness of acute illness. 2. As per HPI, this likely occurred secondary to Bactrim. Continue Solu-Medrol 250 mg daily until 02/19 3. ContinueIV linezolid for gram positive coverage, including MRSA, and IV ceftriaxone for gram negative coverage along with IV Flagyl, due to elevated temperatures, although elevated temps could be due to systemic inflammation from problem 1. 4. FENa consistent with pre-renal causes. Could be related to problem 1, too. Cr improving. 5. Possibly has occurred as a manifestation of problem 1. Has improved while on IV diltiazem drip at 10 mg/hr. Weaned off IV 6. Likely occurred secondary to IV Benadryl. Straight cath removed 800 cc's urine. 7. Patient reports being on metformin at home. A1c still pending. Insulin sliding scale in place. 8. Patient does not recall his medications or doses, and reports she will bring them in for reconciliation. VTE prophylaxis: Heparin 5000 units tid Disposition: Home, once clinically stable Time Spent With Patient Critical Care time: I spent a total of [] minutes of critical care time on this patient's care today; this time is exclusive of procedural time. Quality VTE Deep Vein Thrombosis/Pulmonary Embolism Present on Admission: No
--- NOTE | 2021-02-18 14:47 | PT.IIE ---
Current Diagnoses Type 2 diabetes mellitus with other specified complication (02/16/21) Type 2 diabetes mellitus without complications (02/16/21) Hyperlipidemia, unspecified (02/16/21) Essential (primary) hypertension (02/16/21) Cellulitis of unspecified finger (02/16/21) Tachycardia, unspecified (02/16/21) Other specified abnormalities of plasma proteins (02/16/21) Allergy, unspecified, initial encounter (02/16/21) Physical Therapy Inpatient Evaluation/Re-Eval M1 PT/OT-IP Prior Functional Status Start: 02/18/21 16:06 Freq: NEEDED Status: Active Protocol: Document 02/18/21 14:47 AB (Rec: 02/18/21 16:22 AB [email or web address]) Medical Review Prior Functional Status Medical History Reviewed Yes Communication able to make needs known Mobility and Gait spouse stated that pt is independent with all mobilities and ambulation without AD Social History Household Members spouse Living Arrangements House Number of Floors (Floors) One Floor Number of Stairs To Enter/Railing? 1 step to enter Home Environment Standard Height Toilet,High Toilet,Walk in Shower Home Equipment Straight Cane,Hand Held Shower Additional Social History Comment pt stated that she cannot assist pt much at home pt stated that she was able to borrow a FWW from her friend M2 PT-IP Current Condition Start: 02/18/21 16:06 Freq: NEEDED Status: Active Protocol: Document 02/18/21 14:47 AB (Rec: 02/18/21 16:22 AB [email or web address]) Physical Therapy Current Condition Current Condition Evaluation Date 02/18/21 Treatment Diagnosis L ring finger cellulitis; allergic rxn to antibiotic; difficulty in walking Onset Date 02/16/21 M3 PT-IP Subjective Start: 02/18/21 16:06 Freq: NEEDED Status: Active Protocol: Document 02/18/21 14:47 AB (Rec: 02/18/21 16:22 AB [email or web address]) Subjective Physical Therapy Visit Type Type Initial Evaluation Visit Start Time 14:47 Visit Stop Time 15:30 Total Visit Minutes 43 Number of CLOTH SPREADER Visits 0 M4 PT-IP Mobility and Gait Start: 02/18/21 16:06 Freq: NEEDED Status: Active Protocol: Document 02/18/21 14:47 AB (Rec: 02/18/21 16:22 AB [email or web address]) PT-Bed Mobility Assessment Supine to Sit Supine to Sit Maximum Assistance PT-Transfer Assessment Sit to and From Stand Sit to and from Stand Maximum Assistance,1 Person Assistance,Use of Upper Extremities Equipment Transfer Assistive Device Gait Belt,Front Wheeled Walker Orthotic/Prosthetic Devices or Brace: No Transfers Transfer Destination Chair Transfer Technique Stand Step Pivot Transfer Ability Level of Assist Maximum Assistance,1 Person Assistance,Use of Upper Extremities Comments Mobility Comments pt initially very sleepy and needs cues to keep eyes open. spouse provided PLOF and home set up. pt begin to wake up once mobilization started. completed supine to sit max A and max cues. required min A for sitting balance on EOB with increase posterior trunk lean and cued for steadiness. completed sit to stand max A and max cues. pt with difficulty following directions and continues to have increase posterior LOB during standing. cued to push down on FWW for support. completed step transfer to chair using FWW max A and max cues. positioned pt on chair. call light and table placed within reach. spouse called her friend and was able to borrow a FWW for pt. Gait Assessment Comments Gait Comments unable at this time PT-Balance Assessment Sitting Balance and Reactions Static Sitting Balance Ability Fair Dynamic Sitting Balance Ability Fair Standing Balance and Reactions Static Standing Balance Ability Poor Dynamic Standing Balance Ability Poor Device Used FWW M5 PT-IP Objective Assessments Start: 02/18/21 16:06 Freq: NEEDED Status: Active Protocol: Document 02/18/21 14:47 AB (Rec: 02/18/21 16:[address] [facility] Orientation Orientation/Cognition Level of Alertness Confusional State Orientation Name Language Function Ability No Deficits Noted Safety Awareness Decreased Safety Awareness Gross Range of Motion Lower Extremity ROM Assessment Within Functional Limits Strength Lower Extremity Strength Hip 4-/5 Knee 4-/5 Sensation Assessment Sensation Gross Sensation WNL Muscle Tone Muscle Tone WNL Yes M6 PT-IP Treatment Start: 02/18/21 16:06 Freq: NEEDED Status: Active Protocol: Document 02/18/21 14:47 AB (Rec: 02/18/21 16:[address] [facility] Physical Therapy Treatment Education Education Provided Safety M7 PT-IP Assessment and Plan Start: 02/18/21 16:06 Freq: NEEDED Status: Active Protocol: Document 02/18/21 14:47 AB (Rec: 02/18/21 16:22 AB [email or web address]) PT Summary Assessment and Plan Potential Rehabilitation Potential Good Status of Condition at Evaluation Evolving Summary Impairments Pain,ROM,Strength,Balance, Coordination,Sensation,Tone, Cognition,Bed Mobility, Transfers,Gait,Activity Tolerance Assessment Summary pt requiring max A and max cues for transfers with increase posterior LOB and has difficulty following directions. Will assess progress but at this time, may require SNF rehab. pt's spouse stated that she will not be able to assist pt much. Goals Bed Mobility Goal Standby Assistance Transfer Goal Standby Assistance,Front Wheeled Walker Gait Goal Standby Assistance,Front Wheel Walker Gait Distance 200 Other Goals up/down 1 steps using FWW SBA Days to Meet Goals 10 Frequency of Treatment Frequency Of Treatment Once a Day Treatment Plan Physical Therapy Treatment Plan Bed Mobility Training,Transfer Training,Gait Training, Therapeutic Exercise,Balance Retraining,Post Op Education, Discharge Planning,Hot or Cold Pack,Neuromuscular Re-ed, Coordination Retraining,Manual Therapy Recommendations To Nursing Amount of Assist Needed 1 Person Assist Discharge Recommendations PT Discharge Recommendations Home with 22/10 Assist Available,Home Health,SNF Rehab,Home vs SNF Transportation Needs at Discharge Private Vehicle,Wheelchair/ Cabulance
[2021-02-18] MEDS: LORazepam 0.5 MG TABLET PO (20:47)
[2021-02-18] MEDS: SODIUM CHLORIDE 0.9% FLUSH 10 ML IV (20:47)
[2021-02-19] VITALS (9 sets, daily range): BP systolic 132–152; BP diastolic 65–83; PULSE 69–88; RESP 17–20; TEMP 36.5–37.4; O2SAT 93–98
[2021-02-19] MEDS: LACTATED RINGERS 1,000 ML 100 ML IV (03:38)
[2021-02-19] MEDS: LINEZOLID 600 MG/300 ML IV.SOLN IV (05:02)
[2021-02-19] MEDS: HEPARIN 5,000 UNIT/ML VIAL 5000 UNIT SUBCUT ×3 (05:03→21:27)
[2021-02-19 05:54] LABS: Add Manual Diff / Slide Review NO; Basophils Absolute Auto 0 /uL (0-100); Basophils Percent Auto 0.3 % (0-2); Eosinophils Absolute Auto 400 /uL (0-450); Eosinophils Percent Auto 3.6 % (2-4); Hematocrit 33.4 % (41-53); Hemoglobin 11.3 g/dL (13.5-17.5); Lymphocytes Absolute Auto 400 /uL (1100-4500); Lymphocytes Percent Auto 3.8 % (25-40); Mean Corpuscular Hemoglobin 32.7 PG (26-34); Mean Corpuscular Volume 96.2 fL (80-100); Monocytes Absolute Auto 500 /uL (0-900); Monocytes Percent Auto 4.4 % (3-14); Neutrophils Absolute Auto 9400 /uL (1500-7000); Neutrophils Percent Auto 87.9 % (50-75); Platelet Count 133 X10^3/uL (150-400); Red Blood Cell Count 3.47 X10^6/uL (4.5-5.9); Red Cell Distribution Width 13.7 % (11.6-14.8); White Blood Cell Count 10.7 X10^3/uL (4.5-11.0)
[2021-02-19 06:02] LABS: BUN Creatinine Ratio 48.9 (6-22); Blood Urea Nitrogen 43 mg/dL (9-20); Calcium 8.1 mg/dL (8.4-10.2); Carbon Dioxide 27 mmol/L (22-32); Chloride 99 mmol/L (98-107); Estimated Glomerular Filt Rate > 60.0 mL/min (>60); Glucose 218 mg/dL (80-110); Magnesium 2.2 mg/dL (1.6-2.3); Sodium 131 mmol/L (137-145)
[2021-02-19 06:08] LABS: HEMOLYSIS 51 (0-50)
[2021-02-19 06:09] LABS: Potassium 4.4 mmol/L (3.4-5.1)
[2021-02-19] MEDS: INSULIN LISPRO 100 UNIT/ML 3ML VIAL SUBCUT ×4 (08:35→21:25)
[2021-02-19] MEDS: metroNIDAZOLE 500 MG/100 ML PIGGYBACK 100 MG IV (08:36)
[2021-02-19] MEDS: methylPREDNISolone 125 MG/2 ML VIAL 250 MG IV (08:36)
[2021-02-19] MEDS: FAMOTIDINE 20 MG/2 ML VIAL IV (08:38)
[2021-02-19] MEDS: SODIUM CHLORIDE 0.9% FLUSH 10 ML IV ×2 (08:39→21:29)
--- NOTE | 2021-02-19 09:10 | CM.DPC ---
Addendum entered by Martha Nieto R.N. 02/19/21 15:49: Shravan from [employer] called back and gave authorization number of: [id number]. Called Vanessa at [facility] and left her a message with auth number, letting her know he most likely will be ready for discharge tomorrow. Addendum entered by Martha Nieto R.N. 02/19/21 15:31: Vanessa from [facility] confirmed acceptance as long as [place] auth if approved. Left a message with Shravan at [place], phone number is stated below, that today's P.T. note is being sent over. Patient most likely will be medically ready tomorrow, is on oral antibiotics. Addendum entered by Martha Nieto R.N. 02/19/21 11:10: Met with patient's , Merly, who is at bedside. She is in agreement that he most likely may need fpc. Patient has been sleeping. Gave her the Medicare Choice List to review. She is hopeful that patient can go to [facility]. Did call Vanessa at [facility], who is reviewing. She is also aware that [place] auth would need to be obtained. This child welfare caseworker has already spoken to Carley at [facility] about skilled need. He will work with P.T. again today. Asked her if she feels that patient will go to skilled, she indicated, it's just like being in the hospital, as long as he knows he is going home after. Original Note: DCP Cont: Spoke to nurse, Niurka, who indicated that patient was not mobilizing well with P.T. Read P.T. notes, and is indicated that patient is a max assist of 1, and is recommending fpc. Patient had been independent prior to hospitalization. Went ahead and called [employer]. Spoke to child welfare caseworker Carley, who is the weekend child welfare caseworker. Her phone number is: [phone]. Sent her over P.T. notes and COVID results. Have not yet spoken to patient, he is sleeping. Will also speak to spouse when she comes to visit as well about rehab potential if needed. P: DCP to continue to follow. Will plan on speaking to spouse, and checking in with P.T. today about discharge, and if patient needs skilled rehab. Have sent over P.T. notes to [employer]. Martha Nieto RN/[employer]
[2021-02-19] MEDS: cefTRIAXone 1,000 MG in SODIUM CHLORIDE 0.9% 100 ML 200 ML IV (09:37)
[2021-02-19] MEDS: LORazepam 0.5 MG TABLET PO ×2 (09:37→21:29)
[2021-02-19] MEDS: METOPROLOL IR 50 MG TABLET PO ×2 (09:37→21:28)
--- NOTE | 2021-02-19 10:03 | P.PN_ITS ---
Subjective Subjective Date Patient Seen: 02/19/21 Time Patient Seen: 10:03 Interval history: 80-year-old male left ring finger infection in ICU for lower reaction to Bactrim. Alert and oriented this morning sitting up in bed eating. No complaints of finger pain. Notes swelling has improved. Full range of motion Exam Vital Signs (past 8 hours): - 02/19/21 04:00 02/19/21 08:00 02/19/21 08:04 Temperature 98.1 F Pulse Rate 81 Respiratory Rate 17 Blood Pressure 149/76 H Pulse Oximetry 95 93 95 Oxygen Delivery Method Nasal Cannula Oxygen Flow Rate 2 Narrative Exam Narrative: Alert oriented sitting up in bed eating. No complaints. There is some discoloration of the left ring finger dorsal and volar aspects purple. Brisk capillary refill. Full flexion and extension range of motion. Skin wrinkles present. Swelling much improved. No ascending cellulitis. No pain with passive flexion or extension. Objective Labs Result Diagrams: 02/19/21 05:45 02/19/21 05:45 Labs: Laboratory Results - last 24 hr 02/18/21 02/19/21 02/19/21 10:08 05:45 05:45 WBC 10.7 RBC 3.47 L Hgb 11.3 L Hct 33.4 L MCV 96.2 MCH 32.7 MCHC 34.0 RDW 13.7 Plt Count 133 L Neut % (Auto) 87.9 H Lymph % (Auto) 3.8 L [place] % (Auto) 4.4 Eos % (Auto) 3.6 Baso % (Auto) 0.3 Neut # (Auto) 9400 H Lymph # (Auto) 400 L [place] # (Auto) 500 Eos # (Auto) 400 Baso # (Auto) 0 Sodium 131 L Potassium 4.4 Chloride 99 Carbon Dioxide 27 BUN 43 H Creatinine 0.88 Estimated GFR > 60.0 BUN/Creatinine Ratio 48.9 H Glucose 218 H Calcium 8.1 L Magnesium 2.2 Total Creatine Kinase 1403 H D Troponin I 0.106 H C-Reactive Protein 11.9 H PFSH Social History household members: spouse Smoking Status: Former smoker alcohol intake: current Assessment & Plan Assessment & Plan narrative: Left ring finger cellulitis.? No fluctuance.? No evidence of drainable abscess.? No current surgical indication. Recommend continued treatment with antibiotics.? For any worsening appearance would do MRI of the digit as recommended by Dr. Gomez.? At this point appears to be resolving with current care. Orthopedics will sign off. Please contact with any additional questions Time Spent With Patient Critical Care time: I spent a total of [] minutes of critical care time on this patient's care today; this time is exclusive of procedural time. Quality VTE Deep Vein Thrombosis/Pulmonary Embolism Present on Admission: No
--- NOTE | 2021-02-19 15:07 | PT.IPTN ---
Current Diagnoses Type 2 diabetes mellitus with other specified complication (02/16/21) Type 2 diabetes mellitus without complications (02/16/21) Hyperlipidemia, unspecified (02/16/21) Essential (primary) hypertension (02/16/21) Cellulitis of unspecified finger (02/16/21) Tachycardia, unspecified (02/16/21) Other specified abnormalities of plasma proteins (02/16/21) Allergy, unspecified, initial encounter (02/16/21) Physical Therapy Treatment Note M2 PT-IP Current Condition Start: 02/18/21 16:06 Freq: NEEDED Status: Active Protocol: Document 02/18/21 14:47 AB (Rec: 02/18/21 16:22 AB [id number]) Physical Therapy Current Condition Current Condition Evaluation Date 02/18/21 Treatment Diagnosis L ring finger cellulitis; allergic rxn to antibiotic; difficulty in walking Onset Date 02/16/21 M3 PT-IP Subjective Start: 02/18/21 16:06 Freq: NEEDED Status: Active Protocol: Document 02/19/21 14:33 JEN (Rec: 02/19/21 15:07 LJ [id number]) Subjective Physical Therapy Visit Type Type Treatment Note Visit Start Time 14:04 Visit Stop Time 14:21 Total Visit Minutes 17 Notes LPN RN HOSPICE in room assisting with pt. in room also Number of LOLLYPOP MACHINE OPERATOR Visits 1 Physical Therapy Visit Comments Patient Comments Willing to work wi PT. Pt states he feels better than yesterday. M4 PT-IP Mobility and Gait Start: 02/18/21 16:06 Freq: NEEDED Status: Active Protocol: Document 02/19/21 14:33 JEN (Rec: 02/19/21 15:07 LJ [id number]) PT-Bed Mobility Assessment Supine to Sit Supine to Sit Contact Guard Assistance,1 Person Assistance,Head of Bed Elevated Sit to Supine Sit to Supine Standby Assistance,1 Person Assistance,Head of Bed Elevated Scooting Scooting to Edge of Bed Standby Assistance Scooting Up and Down in Bed Standby Assistance PT-Transfer Assessment Sit to and From Stand Sit to and from Stand Moderate Assistance,1 Person Assistance,Use of Upper Extremities Equipment Transfer Assistive Device Gait Belt,Front Wheeled Walker Orthotic/Prosthetic Devices or Brace: No Transfers Transfer Destination Bed,Bedside Commode Transfer Technique ambulated 4 feet then turned to sit Transfer Ability Level of Assist Maximum Assistance,1 Person Assistance,Use of Upper Extremities Comments Mobility Comments Pt much more awake this session. Improved bed mobility and transfer requiring less assist. Pt still needs max cueing for FWW management and body positioning when standing . Still demonstrating posterior lean with several LOB episodes while seated on the side of the bed. Pt able to get himself into seated position on side of bed but once seated with feet on the floor he requires cues to correct posterior lean and will lose balance laterally when not bracing himself with his hands. Pt able to perform sit<>stand but will lose balance when transitioning from sitting to standing and again from standing to sitting . Pulls on FWW to stand and requires cues to push off bed/ BSC. Gait Assessment Gait Gait Assistance Required: Moderate Assistance,1 Person Assist,2 Person Assist Distance (Feet) 15 Assistive Devices Assistive Device Gait Belt,Front Wheeled Walker Gait Deviations General Gait Pattern Decreased Stride Length, Decreased Feet Clearance, Flexed Trunk,Lateral Trunk Lean,Narrow Based Gait,Step-to Gait Factors Limiting Gait Function Factors Limiting Gait Function Decreased Activity Tolerance, Decreased Strength,Difficulty Following Directions, Incoordination,Limited Range of Motion,Poor Balance,Poor Safety Awareness Comments Gait Comments Pt ambulated from bed to BSC 4 feet with posterior lean correctected by LOLLYPOP MACHINE OPERATOR. He required Isidra to stand from the BSC with cueing for hand placement on BSC rather than pulling on FWW. Experienced 2 episodes of left lateral loss of balance requiring assist from LOLLYPOP MACHINE OPERATOR. Pt requiring MaxA for cueing to correct posterior lean. He had difficulty lifting feet and advancing them forward while walking around the bed. When pt sat back in bed he lost balance to the right which he corrected himself but continued the posterior lean. Pt then performed a sit>stand with Max cues and was unable to remain standing without bracing himself with his legs against the side of the bed. Pt able to position himself back into bed with cueing and SBA. M5 PT-IP Objective Assessments Start: 02/18/21 16:06 Freq: NEEDED Status: Active Protocol: Document 02/18/21 14:47 AB (Rec: 02/18/21 16:22 AB [id number]) Orientation Orientation/Cognition Level of Alertness Confusional State Orientation Name Language Function Ability No Deficits Noted Safety Awareness Decreased Safety Awareness Gross Range of Motion Lower Extremity ROM Assessment Within Functional Limits Strength Lower Extremity Strength Hip 4-/5 Knee 4-/5 Sensation Assessment Sensation Gross Sensation WNL Muscle Tone Muscle Tone WNL Yes M6 PT-IP Treatment Start: 02/18/21 16:06 Freq: NEEDED Status: Active Protocol: Document 02/19/21 14:33 JEN (Rec: 02/19/21 15:07 LJ [id number]) Physical Therapy Treatment Education Education Provided Safety M7 PT-IP Assessment and Plan Start: 02/18/21 16:06 Freq: NEEDED Status: Active Protocol: Document 02/19/21 14:33 JEN (Rec: 02/19/21 15:07 LJ [id number]) PT Summary Assessment and Plan Potential Rehabilitation Potential Good Status of Condition at Evaluation Evolving Summary Impairments Pain,ROM,Strength,Balance, Coordination,Sensation,Tone, Cognition,Bed Mobility, Transfers,Gait,Activity Tolerance Assessment Summary Pt requiring Max cues and Max assist with ambulation. He is able to perform bed mobility with SBA but unable to maintain sitting on side of bed balance without cueing due to posterior lean and lateral LOB. Pt will require SNF for further rehab to improve motor planning, balance, strength, and mobility before he is safe to return home with spouse. Goals Bed Mobility Goal Standby Assistance Transfer Goal Standby Assistance,Front Wheeled Walker Gait Goal Standby Assistance,Front Wheel Walker Gait Distance 200 Other Goals up/down 1 steps using FWW SBA Days to Meet Goals 10 Frequency of Treatment Frequency Of Treatment Once a Day Treatment Plan Physical Therapy Treatment Plan Bed Mobility Training,Transfer Training,Gait Training, Therapeutic Exercise,Balance Retraining,Post Op Education, Discharge Planning,Hot or Cold Pack,Neuromuscular Re-ed, Coordination Retraining,Manual Therapy Recommendations To Nursing Amount of Assist Needed 1 Person Assist Discharge Recommendations PT Discharge Recommendations SNF Rehab [id number]
[2021-02-19] MEDS: levoFLOXacin 250 MG TABLET 750 MG PO (16:33)
--- NOTE | 2021-02-19 17:47 | P.PN_ITS ---
Subjective Subjective Date Patient Seen: 02/19/21 Interval history: THE PATIENT DID NOT HAVE ANY SIGNIFICANT COMPLAINT I SPOKE TO PATIENT WITH HIS BEDSIDE IN REGARD TO HIS FINGER, HE THINK IT IS INSECT BITE Exam Vital Signs (past 8 hours): - 02/19/21 12:00 02/19/21 16:00 Temperature 97.7 F 99.4 F Pulse Rate 69 88 Respiratory Rate 18 18 Blood Pressure 132/67 138/65 Pulse Oximetry 96 97 Oxygen Delivery Method Room Air Oxygen Flow Rate 0 Narrative Exam Narrative: GENERAL: OVERWEIGHT. NO ACUTE DISTRESS HEAD: ATRAUMATIC NORMOCEPHALIC CHEST: REGULAR RATE. NO RUB. PMI ISN'T DISPLACED PULM: DECREASED BREATH SOUND AT THE BASES. NO WHEEZING. ABDOMINAL: OBESE BUT SOFT. NO GUARDING. BOWEL SOUNDS PRESENT IN ALL 4 QUADRANTS EXTREMITY: 2+ NONPITTING EDEMA NEURO: CLEARED OF 2-12 APPEARED TO BE GROSSLY INTACT. NONFOCAL EXAM SKIN: REDNESS NOTED TO THE 4TH FINGER ON THE LEFT HAND. NONE TENDER TO TOUCH. NO DRAINAGE PSYCH: APPROPRIATE MOOD AND AFFECT. ALERT, AWAKE, ORIENTED X3 Objective Labs Result Diagrams: 02/19/21 05:45 02/19/21 05:45 Labs: Laboratory Results - last 24 hr 02/19/21 02/19/21 05:45 05:45 WBC 10.7 RBC 3.47 L Hgb 11.3 L Hct 33.4 L MCV 96.2 MCH 32.7 MCHC 34.0 RDW 13.7 Plt Count 133 L Neut % (Auto) 87.9 H Lymph % (Auto) 3.8 L Isabella % (Auto) 4.4 Eos % (Auto) 3.6 Baso % (Auto) 0.3 Neut # (Auto) 9400 H Lymph # (Auto) 400 L Isabella # (Auto) 500 Eos # (Auto) 400 Baso # (Auto) 0 Sodium 131 L Potassium 4.4 Chloride 99 Carbon Dioxide 27 BUN 43 H Creatinine 0.88 Estimated GFR > 60.0 BUN/Creatinine Ratio 48.9 H Glucose 218 H Calcium 8.1 L Magnesium 2.2 PFSH Social History household members: spouse Smoking Status: Former smoker alcohol intake: current Assessment & Plan Assessment & Plan narrative: PROBLEM LIST ALLERGIC REACTION TO SULFA. BACTRIM APPEAR TO BE THE CAUSATIVE AGENT CELLULITIS TO THE 4TH FINGER ON THE LEFT. IMPROVED OVERWEIGHT. LIFESTYLE CHANGES RECOMMENDED DIABETES TYPE 2 PER HISTORY. ANEMIA. MOST LIKELY OF CHRONIC DISEASE PHYSICAL DEBILITY/ DECONDITIONING. MULTIFACTORIAL PLAN PATIENT TO BE ATTIC SWITCHED TO LEVAQUIN AND DOXYCYCLINE FOR NOW MONITOR CLOSELY REFERRED TO ORTHOPEDIC SURGERY IF INDICATED PATIENT REPORTED SOME IMPROVEMENT TO THE FINGER SINCE ADMISSION CONTINUE CURRENT MANAGEMENT OTHERWISE PATIENT REFERRED TO THE PHYSICAL THERAPY TEAM DUE TO SIGN THE PHYSICAL DECONDITIONING/DEBILITY STAFF TO MAINTAIN STRICT ASPIRATION AND FALL PRECAUTIONS MIGHT NEED PLACEMENT TO INTERMEDIATE FACILITY ADDITIONAL MANAGEMENT PER CLINICAL COURSE Time Spent With Patient Critical Care time: I spent a total of [] minutes of critical care time on this patient's care today; this time is exclusive of procedural time. Quality VTE Deep Vein Thrombosis/Pulmonary Embolism Present on Admission: No
[2021-02-19] MEDS: INSULIN GLARGINE 100 UNIT/ML 3ML PEN 10 UNIT SUBCUT (21:23)
[2021-02-19] MEDS: DOXYCYCLINE HYCLATE 100 MG TABLET PO (21:28)
[2021-02-19] MEDS: MELATONIN 3 MG TABLET 6 MG PO (21:28)
[2021-02-19] MEDS: TRAZODONE 50 MG TABLET PO (21:28)
[2021-02-19] MEDS: FAMOTIDINE 20 MG TABLET PO (21:29)
[2021-02-20] VITALS: BP 137/64; PULSE 72; RESP 19; TEMP 36.4; O2SAT 95
--- NOTE | 2021-02-20 03:08 | PC.NURSE ---
0300 Bladder scan done, showing 550ml urine. Straight cath done after pt voided small amount. 400ml obtained
[2021-02-20 04:23] VITALS: BP 144/70; PULSE 65; RESP 20; TEMP 36.1; O2SAT 92
[2021-02-20] MEDS: HEPARIN 5,000 UNIT/ML VIAL 5000 UNIT SUBCUT (05:18)
[2021-02-20 08:00] VITALS: BP 155/71; PULSE 71; RESP 24; TEMP 36.6; O2SAT 93
[2021-02-20] MEDS: INSULIN LISPRO 100 UNIT/ML 3ML VIAL SUBCUT (08:18)
[2021-02-20] MEDS: METOPROLOL IR 50 MG TABLET PO (08:19)
[2021-02-20] MEDS: ASPIRIN EC 81 MG TABLET PO (08:19)
[2021-02-20] MEDS: LORazepam 0.5 MG TABLET PO (08:20)
[2021-02-20] MEDS: FAMOTIDINE 20 MG TABLET PO (08:20)
[2021-02-20] MEDS: lisinopriL 5 MG TABLET PO (08:20)
[2021-02-20] MEDS: INSULIN GLARGINE 100 UNIT/ML 3ML PEN 10 UNIT SUBCUT (08:20)
[2021-02-20] MEDS: DOXYCYCLINE HYCLATE 100 MG TABLET PO (08:20)
[2021-02-20] MEDS: SODIUM CHLORIDE 0.9% FLUSH 10 ML IV (08:21)
--- NOTE | 2021-02-20 08:59 | CM.DPC ---
Addendum entered by VONDA Jimenes 02/20/21 12:26: ADD: SW spoke to pt's spouse and updated on time of transport to [facility] at 1200 and she is agreeable and appreciative and will call to schedule visitation with the pt after admissions at SNF. SAM Thompson kindly faxed signed med rec, PASRR, updated COVID neg, vaccination status, d/c summary, MD orders to [facility] to review. Plan: Patient to d/c to [facility] at 1200 via facility van prior to d/c home with spouse. BF Original Note: DCP Discharge SNF Per MD, pt is medically stable to d/c to SNF today and no identified barriers to discharge. WES called [facility] admissions and updated on pt d/c orders and requesting a morning transport time due to need for beds at the hospital and admissions will be in her office soon and will confirm transport time. WES updated RN and steward/stewardess tourist class and requested SAM Thompson to kindly print off copy of pt's COVID vaccination status. Plan: WES to follow for confirmation of transport time to [facility] today and faxing the d/c packet to [facility] to review. BF
[2021-02-20 11:28] LABS: COVID19 - ADMIT (NP swab/PCR) Negative (Negative)
--- NOTE | 2021-02-20 11:43 | P.DS_ITS ---
History of Present Illness History of Present Illness Date Patient Seen: 02/20/21 Chief complaint: allergic reaction Narrative: CELLULITIS TO 3RD Discharge Providers Provider Date of admission: 02/16/21 14:57 Discharge Date: 02/20/21 Primary care physician: Angela Calderon DO Consults: 02/16/21 15:02 Consult to Orthopedic Surgery Routine Comment: Consulting Provider: Asher Gomez Reason for consultation: left ring finger infection Has provider been notified: Yes 02/18/21 12:21 Consult to Occupational Therapy Evaluate & Treat Comment: Physician Instructions: Evaluate and treat Consult to Physical Therapy Evaluate & Treat Comment: Physician Instructions: Evaluate and Treat 02/20/21 07:48 Consult to Discharge Planning Routine Comment: PLEASE REFER TO SNF. THANKS Discharge provider: Esvin Arenas DO Summary Hospital Course Discharge Diagnosis: DERMATITIS SECONDARY TO ALLERGIC REACTION ALLERGIC REACTION TO BACTRIM OBESITY HYPERTENSION PER HISTORY DIABETES TYPE 2 PER HISTORY PHYSICAL DECONDITIONING /DEBILITY AGE ASSOCIATED DEMENTIA. Hospital Course: THIS IS A VERY PLEASANT 80-YEAR-OLD MALE WHO WAS ADMITTED TO THE HOSPITAL WITH DIFFUSE RASH THIS WAS SECONDARY TO AN ALLERGIC REACTION TO BACTRIM. PATIENT ALSO HAD A CELLULITIS TO THE LEFT 4TH FINGER. AND THIS IS THE REASON WHY HE HAD RECEIVED ANTIBIOTICS. HE WAS GIVEN STEROIDS WELL ANTIBIOTICS DURING ADMISSION. HE RESPONDED VERY WELL TO THE TREATMENT. HIS RASH HAS MOSTLY RESOLVED AT THIS TIME. HE WILL BE DISCHARGED TO [facility]ACILITY DUE TO SIGN OF PHYSICAL DECONDITIONING. HE WILL BE CONTINUING ANTIBIOTICS FOR ANOTHER 7 DAYS. HE IS NOT SURE WHAT HAPPENED TO HIS FINGER. HE DENIES ANY INJURIES. THIS COULD BE AN INSECT BITE. IN ANY CASE PATIENT APPEARED TO BE IMPROVED CLINICALLY. AND WILL BE DISCHARGED TODAY ADDITIONAL MANAGEMENT WILL BE DEFERRED TO THE OUTPATIENT PROVIDERS Status at Discharge Cognitive/behavioral status at discharge: oriented Functional status at discharge: uses cane/walker Overall status at discharge: patient is progressing back to baseline Time Spent with Patient Time spent: Greater than 30 minutes Exam Vital Signs (past 8 hours): - 02/20/21 04:23 02/20/21 08:00 Temperature 97.0 F L 97.9 F Pulse Rate 65 71 Respiratory Rate 20 24 Blood Pressure 144/70 H 155/71 H Pulse Oximetry 92 93 Oxygen Delivery Method Room Air Oxygen Flow Rate 0 Narrative Exam Narrative: Exam Narrative: ?GENERAL:? OVERWEIGHT.? NO ACUTE DISTRESS ?HEAD:? ATRAUMATIC NORMOCEPHALIC ?CHEST:? REGULAR RATE.? NO RUB.? PMI ISN'T DISPLACED ?PULM:? DECREASED BREATH SOUND AT THE BASES.? NO WHEEZING. ? ABDOMINAL:? OBESE BUT SOFT.? NO GUARDING.? BOWEL SOUNDS PRESENT IN ALL 4? QUADRANTS ?EXTREMITY:? 2+ NONPITTING EDEMA ?NEURO:? CLEARED OF 2-12 APPEARED TO BE GROSSLY INTACT.? NONFOCAL EXAM ?SKIN:? REDNESS NOTED TO THE 4TH FINGER ON THE? LEFT HAND.? NON-TENDER TO TOUCH.? NO DRAINAGE ?PSYCH:? APPROPRIATE MOOD AND AFFECT.? ALERT, AWAKE, ORIENTED X3 Objective Labs Result Diagrams: 02/19/21 05:45 02/19/21 05:45 Labs: Laboratory Results - last 24 hr 02/20/21 09:21 SARS-CoV-2 (PCR) Negative [facility] Social History household members: spouse Smoking Status: Former smoker alcohol intake: current Discharge Plan Discharge Plan Patient Disposition: SNF Transfer to: [facility] Discharge orders & Medications Prescriptions: New quetiapine 25 mg Tablet 12.5 mg PO BEDTIME PRN (Reason: Sleep) Qty: 30 0RF trazodone 50 mg Tablet 50 mg PO BEDTIME Qty: 90 0RF melatonin 3 mg Tablet 6 mg PO BEDTIME Qty: 90 0RF levofloxacin 250 mg Tablet 750 mg PO Q24H Qty: 5 0RF aspirin 81 mg Tablet,Delayed Release (Dr/Ec) 81 mg PO DAILY Qty: 90 0RF famotidine [Pepcid AC] 20 mg Tablet 20 mg PO BID Qty: 30 0RF dexamethasone 4 mg Tablet 4 mg PO BIDWM Qty: 8 0RF insulin lispro [Humalog U-100 Insulin] 100 unit/mL Solution 0 unit SUBCUT ACHS Qty: 1 0RF doxycycline hyclate 100 mg Tablet 100 mg PO BID Qty: 14 0RF Lantus Solostar U-100 Insulin 100 unit/mL (3 mL) Insulin Pen 10 unit SUBCUT BID Qty: 1 0RF Continued lisinopril 20 mg Tablet 20 mg PO DAILY 0RF metformin 500 mg Tablet 500 mg PO BID 0RF amlodipine [Norvasc] 5 mg Tablet 5 mg PO DAILY 0RF metoprolol tartrate 50 mg Tablet 50 mg PO BID 0RF lovastatin 20 mg Tablet 20 mg PO DAILY 0RF Discontinued hydrochlorothiazide 25 mg Tablet 25 mg PO DAILY 0RF Follow up/Referrals: Angela Calderon DO [Primary Care Provider] - Diet/Activity/Treatments Diet: Carb-consistent/Diabetic Food texture: Regular Skin/Wound/Dressing Care Report to your healthcare provider any signs of infection, such as:: chills, fever, night sweats, increased pain, unusual drainage and unusual redness Special Rehabilitation Services Reason for rehabilitation: Recovery r/t decondition Rehab type: Physical therapy and Occupational therapy Discharge Data Primary Care Provider: Angela Calderon Quality VTE Deep Vein Thrombosis/Pulmonary Embolism Present on Admission: No
[2021-02-20 16:15] LABS: Osmolality Urine 593 mOsmol/kg (.)
== END 2021-02-20 12:30 | DRG 607 ==
LOC: ED 12:20 → AC 14:58 → ICU 02-17 10:11
PROVIDERS: Emergency Medicine; Family Medicine; Internal Medicine; Admitting Provider Student in an Organized Health Care Education/Training Program; Emergency Provider Emergency Medicine; PCP Family Medicine; Referring Provider Emergency Medicine; Visit Provider Student in an Organized Health Care Education/Training Program
DX: L27.0 Generalized skin eruption due to drugs and medicaments taken internally (principal); N17.9 Acute kidney failure, unspecified; T36.8X5A Adverse effect of other systemic antibiotics, initial encounter; I10 Essential (primary) hypertension; L03.012 Cellulitis of left finger; T78.3XXA Angioneurotic edema, initial encounter; R33.9 Retention of urine, unspecified; E11.9 Type 2 diabetes mellitus without complications; R00.0 Tachycardia, unspecified; K12.30 Oral mucositis (ulcerative), unspecified; E78.5 Hyperlipidemia, unspecified; Z20.822 Contact with and (suspected) exposure to COVID-19; Z87.891 Personal history of nicotine dependence; Z79.84 Long term (current) use of oral hypoglycemic drugs; R79.89 Other specified abnormal findings of blood chemistry
CPT/HCPCS: 36415; 71045; 73130; 80048; 80053; 80074; 81001; 82550; 82570; 82962; 83036; 83605; 83735; 83880; 83935; 84145; 84300; 84484; 85007; 85025; 85610; 85651; 86140; 86704; 86706; 86708; 86803; 87040; 87389; 87635; 93005; 93306; 94760; 96365; 96366; 96375; 97116; 97162; 97530; 99285; 99291; C9803; A9270; J0696; J1200; J1644; J1815; J1940; J2020; J2405; J2930; J3475

== ENCOUNTER → 2021-05-04 11:38 | Outpatient (CLI) | payer OTHER, SELFPAY ==
[2021-02-16 15:51] VITALS: BMI 27.1
--- NOTE | 2021-05-04 11:40 | DI.MRI.S_ITS ---
PROCEDURE: MR LUMBAR SPINE WO CON INDICATIONS: Lumbar pain TECHNIQUE: Noncontrast sagittal T1 spin echo and T2 fast echo, sagittal STIR, axial T1 and T2 fast spin echo through the lumbar spine. In cases with scoliosis, additional coronal T2 fast spin echo may be performed. COMPARISON: [facility] [place], CR, XR LUMBAR SPINE WITH OBLIQUES PLUS FLEXION EXTENSION, 04/18/2021, 13:07. FINDINGS: Image quality: This examination is limited by involuntary motion artifact. Alignment and Curvature: Mild dextroconvex scoliotic curvature is seen. No focal AP alignment abnormality is seen. Bone Marrow: Marrow is of normal overall signal. No acute vertebral body compression fractures. Spinal Cord: Conus medullaris terminates at the L1 level. Visualized cord demonstrates normal signal and size. Paraspinous Soft Tissues: No paravertebral masses. T12-L1: The disc height is well-preserved. Loss of disc signal is seen at this level. Moderate generalized disc bulge is seen. Mild to moderate facet hypertrophy is seen. There is moderate to severe bilateral neural foraminal narrowing seen, left worse than right. There is a degree of compression seen upon the exiting nerve roots. Moderate central canal narrowing is seen. L1-L2: Mild loss of disc height is seen. Loss of disc signal is seen. Bridging endplate osteophytes are seen. At least moderate disc bulge is seen. There is a superimposed central disc protrusion. There is a focal annular fissure seen posteriorly. Moderate facet joint hypertrophy is seen. There is moderate to severe left-sided and at least moderate right-sided neural foraminal narrowing. A mild degree of compression can be seen upon the exiting left L1 nerve root. At least moderate central canal narrowing is seen. L2-L3: Mild loss of disc height is seen. Loss of disc signal is seen. Moderate disc bulge is seen, which is eccentric to the left. There is a superimposed central disc protrusion. There is a focal annular fissure seen posteriorly. Bridging endplate osteophytes are seen. There is moderate to severe left-sided neural foraminal narrowing, with a degree of compression upon the exiting left L2 nerve root. Moderate right-sided neural foraminal narrowing is seen. At least moderate central canal narrowing is seen at this level. L3-L4: Mild loss of disc height is seen. Loss of disc signal is seen. Remote Schmorl's nodes can be seen at the inferior endplate of L3 and the superior endplate of L4. At least moderate disc bulge is seen, which is slightly eccentric to the right. There is a superimposed central disc protrusion. Mild to moderate facet hypertrophy is seen. There is moderate to severe right-sided neural foraminal narrowing, with a degree of compression upon the exiting right L3 nerve root. Moderate left-sided neural foraminal narrowing is seen. At least moderate central canal narrowing is seen. L4-L5: Moderate loss of disc height is seen. Loss of disc signal is seen. Reactive marrow endplate changes are seen posteriorly, which are hyperintense on T1-weighted and T2-weighted imaging and most consistent with fatty metaplasia (Modic type II changes). At least moderate disc bulge is seen at this level. There is a superimposed central disc protrusion. At least moderate facet hypertrophy can be seen at this level. There is moderate to severe right-sided neural foraminal narrowing, with a degree of compression upon the exiting left L4 nerve root. At least moderate left-sided neural foraminal narrowing is seen. Moderate to severe central canal narrowing is seen, as on series 6, image 27. L5-S1: [id number] loss of disc height and disc signal can be seen. Bridging anterior osteophytes are seen. At least moderate disc bulge is seen. There is a superimposed central disc protrusion. There is a focal annular fissure seen posteriorly. Moderate facet joint hypertrophy is seen. Moderate to severe bilateral neural foraminal narrowing is seen, right worse than left. There is a degree of compression seen upon the exiting nerve roots. Moderate central canal narrowing is seen. IMPRESSION: Multiple levels of relatively prominent lumbar spine degenerative change can be seen. Several sites of significant neural foraminal narrowing can be seen, with associated exiting nerve root compression. Several levels of annular fissures can be seen. Several levels of significant central canal narrowing can be seen, including moderate to severe central canal narrowing at L4-L5. Dictated by: Jayesh Schultz M.D. on 05/04/2021 at 11:20 Approved by: Jayesh Schultz M.D. on 05/04/2021 at 11:26
== END ==
PROVIDERS: PCP Family Medicine; Referring Provider Physical Medicine & Rehabilitation Pain Medicine; Visit Provider Physical Medicine & Rehabilitation Pain Medicine
DX: M47.816 Spondylosis without myelopathy or radiculopathy, lumbar region (principal); M47.817 Spondylosis without myelopathy or radiculopathy, lumbosacral region; M48.061 Spinal stenosis, lumbar region without neurogenic claudication; M48.07 Spinal stenosis, lumbosacral region; M54.50 Low back pain, unspecified
CPT/HCPCS: 72148

== ENCOUNTER 2022-10-05 13:47 | Observation (INO) | payer OTHER, SELFPAY ==
[2021-02-16 15:51] VITALS: BMI 27.1
[2022-09-27 12:17] VITALS: BMI 28.2
[2022-10-04] VITALS (12 sets, daily range): BP systolic 100–151; BP diastolic 53–81; PULSE 51–67; RESP 11–18; TEMP 35.4–36.8; O2SAT 90–100; BMI 28.2
--- NOTE | 2022-10-04 06:41 | DI.RAD.S_ITS ---
PROCEDURE: XR KNEE LT 1TO2V INDICATIONS: total left knee TECHNIQUE: 2 view(s) of the knee acquired. COMPARISON: [facility] [place], XR KNEE 4+ VIEWS LEFT, 08/21/2022, 17:10. FINDINGS: Bones: Patient is status post knee joint arthroplasty. Hardware components are in expected positions. Visualized bony structures are intact. Soft tissues: Overlying postoperative changes are noted. IMPRESSION: Postoperative changes reflecting knee arthroplasty. Dictated by: Tiffanie Hough M.D. on 10/04/2022 at 14:35 Approved by: Tiffanie Hough M.D. on 10/04/2022 at 14:35
[2022-10-04] MEDS: LACTATED RINGERS 1,000 ML 42 ML IV ×2 (07:01→10:19)
[2022-10-04] MEDS: PREGABALIN 75 MG CAPSULE PO (07:02)
[2022-10-04] MEDS: CELECOXIB 200 MG CAPSULE PO (07:02)
--- NOTE | 2022-10-04 07:22 | PM.PREOP ---
Pre-operative Note Interval Note History & Physical reviewed/Exam performed by Physician: Yes Changes to H&P: No
--- NOTE | 2022-10-04 07:46 | PM.OP.1 ---
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 He is failed extensive conservative treatment with braces physical therapy anti-inflammatories and injections. He has been indicated for total knee arthroplasty. He has a significant flexion contracture. The risks and benefits of the procedure have been discussed with the patient and given the opportunity to ask questions. The risks of surgery include but are not limited to infection, malunion, nonunion, persistence of pain, damage to nerves and blood vessels, posttraumatic arthritis, DVT, PE, coardiopulmonary complications and . The patient expressed a thorough understanding of the risks and benefits of surgery and has elected to proceed. Consent was signed. During the operation, the services of a physician surgical device sales representative were medically indicated and necessary to provide the exposure of the operative site for the surgical procedure and to maintain the limb in a proper position to carry out the operation safely and efficiently. Without a qualified assistant store manager trainee being present this would extended the operative procedure and made the procedure technically more difficult to perform. Surgeon: Farhana Fitzpatrick Lining Stuffer: Eboni Graves Operative Notes Findings: End-stage, [id number] valgus knee arthritis, tricompartmental arthritis, large osteophytes Closure Type: primary Specimen(s): none sent Prosthetic devices, grafts, tissues, transplants, or devices: Olson and nephew journey 2 BCS Femur cobalt chromium size 7 Tibia size 7 Poly size 10 Patella 38 x 9 mm round Procedure in detail: Patient was seen in the preoperative area where the patient and site of surgery were identified in the operative knee was marked informed consent confirmed. This was the left knee. Patient received the appropriate preoperative antibiotics this was 2 g of Ancef. And other preoperative medications and was taken to the operating room placed on operating table in the supine position. Spinal anesthetic were administered. The operative extremity was then prepped and draped in the standard sterile fashion with a nonsterile tourniquet high on the thigh. Patient was placed on the green foam bolsters. A lateral post was placed at the level of the proximal thigh /trochanter area as a lateral post. Formal time-out procedure was performed confirming the patient's side and site of surgery and administration of appropriate preoperative antibiotics and implants were in the room accounted for. All were in agreement. Patient received a preoperative dose of tranexamic acid and then a 2nd dose at tourniquet release Patient was prepped and draped in the standard sterile fashion and the foot was placed into the leg sagastume. There was a significant flexion contracture. This was taken into flexion and the incision was marked out over the anterior knee to the level of the medial tubercle tubercle. The Esmarch was then used for exsanguination and the tourniquet was inflated to 250 mmHg. Was made through the skin and subcutaneous tissue in flexion this was then brought down into 30? of flexion for the medial parapatellar arthrotomy. A marker pen was used to amina the arthrotomy site for later repair. Joint fluid was evacuated. The anterior osteophytes and soft tissues were removed. Minimal medial release was initially made along the medial proximal tibia with Bovie. The patella was 1st cut using the saw sized and prepped and then subluxed throughout the case and protected. The leg was then taken into extension and the patella was everted and the patella was cut to accommodate the patellar button. This was sized to a 38 mm button for a 9 mm thickness to recreate the original dimensions of the patella. Poly was removed and the protector replaced and the patella was subluxed and the knee was taken back up into flexion and attention was returned to the femur. Then the rotational landmarks of [place] line and the trans epicondylar axis were marked on the femur with electrocautery. Then the intramedullary guide for the femur was created. The distal femoral cut was made in 5? of valgus using the intramedullary guide with the cut setting on 2+ as the patient did have a preoperative flexion contracture. Still barely cut in the lateral condyle and after checking the extension gap which was tight additional 2 mm distal femur was taken. The ACL and PCL released. The proximal tibia was then cut using the intramedullary guide, taking 7 mm off the less involved side this was the medial plateau. The [place] wing was used to check the slope through the guide. In extension remainders of the medial and lateral menisci were removed. The extension flexion gaps were then checked using both the flexion extension blocks. There was still significant tightness in extension for 2 more mm were taken off of the tibia. The bone was very eburnated posteriorly and skiving, so additional hand cut was taken to make sure enough posterior tibia bone was removed. Once this was completed 9 and then 10 mm poly blocks were placed. femur was then sized and the rotation set using the posterior condyle referencing 5? of external rotation for a valgus knee and this lined up well with [place]'s line. This measured a size 7. Cut block was then placed and the anterior, posterior and chamfer cuts were then made. The posterior osteophytes and soft tissues were then removed. Then in extension the posterior capsule was injected with a mixture of 40 mL of 0.25% Marcaine and 20 mL of Exparel care to avoid excessive injection posterior laterally. The remainder of this was saved for the capsule and subcutaneous tissue and placed during cement curing. Attention was then returned to the tibia and this was prepared with the rotation set by the guide. Lined up with the tibial crest and the 2nd toe. The tibial trial was then pinned in place and the trial femoral components were placed. Then the intercondylar notch was cut through the femoral trial to create the box this was done with the distal than the proximal drill and then the box cut distally and then proximally. Next the insert was placed and the trial poly placed. This was little tight laterally in flexion so a minimal pie crust IT band release was made following which the knee was stable in flexion and extension and there was a 0-130 degree range of motion. The tibia was then finished with the drill and flange cuts and then this was removed. All trials were removed. The wound and bone was irrigated with pulsatile lavage. This was then dried with a sponge. The components were verified and opened and the cement was mixed. Cement was applied to the components and then to the bone then the tibia was cemented in place 1st followed by the femur then the patella. Excess cement was removed. With care looking around the back of the knee. Remainder of the injection was injected around the capsule. trial poly was placed back in the leg was placed into extension for the patellar cementing. After this was cured approximately 15 minutes later and the dilute Betadine solution was placed for at least 3 minutes in the wound this was then irrigated out and the final poly was placed. This was a 10 mm poly. The tourniquet was released hemostasis was achieved. Final 1 g of tranexamic acid was given IV at the time of tourniquet release. The capsule was closed with 1. Ethibond suture. Subcutaneous layer was closed with 3-0 Vicryl suture. Skin was closed with a running V lock suture Stratafix Monocryl type suture and Dermabond. An Aquacel dressing was placed. An Edgar wrap was applied. Anesthetic was terminated the patient was woken from anesthesia and taken to recovery room in good condition. There no immediate complications from this procedure. The patient will be maintained on a standard total knee replacement protocol with weight-bearing as tolerated. Post-operative Plan for aftercare: Weightbear as tolerated. Start immediate knee range of motion. Work with therapy. Anticipate discharge home postoperative day 1. Aspirin 81 mg b.i.d. 6 weeks postop for DVT prophylaxis.
[2022-10-04] MEDS: CEFAZOLIN 2 GM/100 ML PREMIX 100 ML IV ×2 (08:10→16:03)
--- NOTE | 2022-10-04 08:27 | SUR.OPER ---
Supine on padded OR bed. Pillow under head, arms secured on padded armboards <90 degree abduction. Safety belt across torso. Non-operative leg secured with tape over blanket over lower leg. Operative leg secured in Kirk positioner. Foam padded brace at thigh of operative leg.
[2022-10-04] MEDS: BUPIVACAINE LIPOSOME 266 MG/20 ML VIAL INJ (08:47)
[2022-10-04] MEDS: BUPIVACAINE 0.5% W/ EPI (PF) 30 ML VIAL INJ (08:49)
--- NOTE | 2022-10-04 11:20 | SUR.PHASEI ---
Report called to
--- NOTE | 2022-10-04 11:24 | SUR.PHASEI ---
Patient transferred to the floor by Kalia Diamond with belongings bag and pink walker.
[2022-10-04] MEDS: LACTATED RINGERS 1,000 ML 100 ML IV ×2 (11:35→16:04)
--- NOTE | 2022-10-04 14:30 | PT.IIE ---
Current Diagnoses Bilateral primary osteoarthritis of knee (10/04/22) Unilateral primary osteoarthritis, left knee (10/04/22) Other specified joint disorders, unspecified knee (10/04/22) Surgery Performed Operation Date: 10/04/22 07:45 Actual Procedures p Total Knee Arthroplasty(Left) - Farhana Fitzpatrick MD Surgical History (Last Updated 09/27/22 @ 13:12 by Shruthi Bonilla, RN) H/O vasectomy Hx of bilateral cataract extraction Hx of knee surgery Medical History (Last Updated 09/27/22 @ 13:14 by Shruthi Bonilla RN) Osteoarthritis Physical Therapy Inpatient Evaluation/Re-Eval M1 PT/OT-IP Prior Functional Status Start: 10/04/22 15:27 Freq: NEEDED Status: Active Protocol: Document 10/04/22 14:30 AB (Rec: 10/04/22 15:42 AB [id number]) Medical Review Prior Functional Status Medical History Reviewed Yes Communication able to make needs known Mobility and Gait pt stated that he is modified independent with all mobilities and ambulation using a 4WW; spouse stated that he has 3 falls for the last 2-3 months due to L knee giving out on him Social History Household Members spouse Living Arrangements House Number of Floors (Floors) One Floor Number of Stairs To Enter/Railing? 1 step to enter Home Environment Standard Height Toilet,High Toilet,Walk in Shower Home Equipment Front Wheel Walker,Four Wheel Walker,Raised Toilet Seat w/ Armrests,Shower Seat with Backrest,Hand Held Shower,Grab Bars In Shower Additional Social History Comment pt lives with spouse Merly but spouse stated that she will not be able to assist pt since she just pulled her back pt has an adjustable bed. M2 PT-IP Current Condition Start: 10/04/22 15:27 Freq: NEEDED Status: Active Protocol: Document 10/04/22 14:30 AB (Rec: 10/04/22 15:42 AB [id number]) Physical Therapy Current Condition Current Condition Evaluation Date 10/04/22 Treatment Diagnosis s/p L TKA; difficulty in walking Onset Date 10/04/22 M3 PT-IP Subjective Start: 10/04/22 15:27 Freq: NEEDED Status: Active Protocol: Document 10/04/22 14:30 AB (Rec: 10/04/22 15:42 AB [email or web address]) Subjective Physical Therapy Visit Type Type Initial Evaluation Visit Start Time 14:30 Visit Stop Time 15:17 Total Visit Minutes 47 Number of EXECUTIVE CREATIVE DIRECTOR Visits 0 Physical Therapy Visit Comments Patient Comments agreeable to do PT Therapy Pain Assessment Pain When Pain Assessed At Rest Pain Present Pain Present Pain Reported Location Left Knee Intensity 6 Scale Used increases to 8/10 with mobility Pain Management Techniques Apply Cold,Distraction, Elevation,Modification of Treatment,Re-positioning, Timing of Activity with Medications M4 PT-IP Mobility and Gait Start: 10/04/22 15:27 Freq: NEEDED Status: Active Protocol: Document 10/04/22 14:30 AB (Rec: 10/04/22 15:42 [email or web address]) PT-Bed Mobility Assessment Supine to Sit Supine to Sit Standby Assistance Sit to Supine Sit to Supine Standby Assistance PT-Transfer Assessment Sit to and From Stand Sit to and from Stand Moderate Assistance,1 Person Assistance,Use of Upper Extremities Equipment Transfer Assistive Device Gait Belt,Front Wheeled Walker Orthotic/Prosthetic Devices or Brace: No Comments Mobility Comments pt supine in bed. spouse in room with pt. BP in supine: 123/79 O2 sat 98%. pt completed heel slides prior to mobility. increase knee tightness with c/o increase pain with movement. provided pt with post-op folder and discussed contents. pt's spouse stated that she will not be able to assist pt with any physical assistance since she just pulled her back. pt completed supine to sit with HOB elevated to ~ 8 deg. able to sit on EOB SBA. BP: 133/78. no c/o dizziness/ lightheadness. completed sit to stand mod A and max cues and ambulated in room using FWW min to mod A and cues ~ 25 ft. presents with dragging gait with slight knee buckling with mid to end stance phase. pt can be impulsive. pt ambulated back to the bed. completed sit to supine SBA. positioned pt in bed. ice pack provided. call light and table placed within reach. informed pt, spouse and family preservation caseworker regarding SNF rehab recommendation at this time. Gait Assessment Gait Gait Assistance Required: Minimum Assistance,Moderate Assistance,1 Person Assist Distance (Feet) 25 Able to Maintain Weight Bearing Status Yes During Gait Assistive Devices Assistive Device Gait Belt,Front Wheeled Walker Orthotic/Prosthetic Devices or Brace: No Gait Deviations General Gait Pattern Antalgic,Decreased Stride Length,Decreased Feet Clearance,Flexed Trunk,Step-to Gait Factors Limiting Gait Function Factors Limiting Gait Function Decreased Activity Tolerance, Decreased Strength,Difficulty Following Directions, Incoordination,Limited Range of Motion,Pain,Poor Balance, Poor Safety Awareness PT-Balance Assessment Sitting Balance and Reactions Static Sitting Balance Ability Normal Dynamic Sitting Balance Ability Good Standing Balance and Reactions Static Standing Balance Ability Fair Dynamic Standing Balance Ability Fair Device Used FWW M5 PT-IP Objective Assessments Start: 10/04/22 15:27 Freq: NEEDED Status: Active Protocol: Document 10/04/22 14:30 AB (Rec: 10/04/22 15:42 AB [email or web address]) Orientation Orientation/Cognition Level of Alertness Alert Orientation Name,Place,Situation Language Function Ability Hard of Hearing Safety Awareness Decreased Safety Awareness Memory Description Short Term Impaired Gross Range of Motion Lower Extremity ROM Assessment Left Impaired Impairments PROM: L knee flexion ~ 70 deg L knee extension: ~ 20 deg less to 0 Strength Lower Extremity Strength Assessment Left Impaired Hip 4-/5 Knee 3+/5 Sensation Assessment Sensation Gross Sensation WNL Muscle Tone Muscle Tone WNL Yes M6 PT-IP Treatment Start: 10/04/22 15:27 Freq: NEEDED Status: Active Protocol: Document 10/04/22 14:30 AB (Rec: 10/04/22 15:42 AB [email or web address]) Physical Therapy Treatment Exercises Exercises Heel Slides Education Education Provided Precautions,Weight Bearing Status,Post-Op Packet,Safety M7 PT-IP Assessment and Plan Start: 10/04/22 15:27 Freq: NEEDED Status: Active Protocol: Document 10/04/22 14:30 AB (Rec: 10/04/22 15:42 AB [email or web address]) PT Summary Assessment and Plan Potential Rehabilitation Potential Fair Status of Condition at Evaluation Evolving Summary Impairments Pain,ROM,Strength,Balance, Coordination,Sensation,Tone, Cognition,Bed Mobility, Transfers,Gait,Activity Tolerance Assessment Summary pt s/p L TKA POD 0. pt is WBAT. pt requiring mod A for sit to stand and min to mod A for ambulation using FWW. pt with c/o increase pain affecting mobility and activity tolerance. presents with decrease L LE elevation/ dragging gait and slight knee buckling on mid/end phase of stance requiring mod A for steadiness. Pt lives with spouse but spouse will not be able to provide pt with physical assistance and spouse stated that she just pulled her back muscles. pt also has had 3 falls for the last 1-2 months and is at a high fall risk. pt will require SNF rehab at this time. will assess progress. Goals Bed Mobility Goal Independent Transfer Goal Standby Assistance,Front Wheeled Walker Gait Goal Standby Assistance,Front Wheel Walker Gait Distance 100 Other Goals improv ambulation using FWW 200 ft SBA up/down 1 step using FWW SBA Days to Meet Goals 10 Frequency of Treatment Frequency Of Treatment Twice a Day Treatment Plan Physical Therapy Treatment Plan Bed Mobility Training,Transfer Training,Gait Training, Therapeutic Exercise,Balance Retraining,Post Op Education, Discharge Planning,Hot or Cold Pack,Neuromuscular Re-ed, Coordination Retraining,Manual Therapy Weight Bearing Status Weight Bearing Status Weight Bear as Tolerated Allowed Weight Bearing Amount (enter % LLE WBAT or #) (%) Recommendations To Nursing Amount of Assist Needed 1 Person Assist Discharge Recommendations PT Discharge Recommendations SNF Rehab Transportation Needs at Discharge Private Vehicle,Wheelchair/ Cabulance
[2022-10-04] MEDS: OXYCODONE IR 5 MG TABLET PO ×3 (14:33→23:01)
--- NOTE | 2022-10-04 15:48 | PC.NURSE ---
Pt arrived at 1130 from PACU alert, resting at intervals. IVF infusing as per MD orders. Med at 1430 for discomfort w/good relief. 'Call ligth w/in reach, bed alarm on for pt safety. Continue w/plan of care.
[2022-10-04] MEDS: IBUPROFEN 400 MG TABLET PO ×2 (15:59→21:06)
--- NOTE | 2022-10-04 16:03 | OT.IPNOTE ---
Able to get prior level of function for pt. Pt just completed PT, to see pt tomorrow. No charge
--- NOTE | 2022-10-04 17:19 | P.PN_ITS ---
Subjective Subjective Interval history: Postop day 0 total knee arthroplasty. Worked with physical therapy. Concerns as his can not help him that he may require correction. Today PT is recommending correction facility. Patient lives with spouse spouse is unable to provide physical assistance due to a back injury. Patient has also had several falls, 3 falls in the last 1-2 months in his fall risk. Physical therapy is making recommendations for correction facility at this time Exam Vital Signs (past 8 hours): - 10/04/22 10:58 10/04/22 11:08 10/04/22 11:18 Temperature Pulse Rate 57 L 60 53 L Respiratory Rate 12 11 L Blood Pressure 112/63 113/67 100/54 L Pulse Oximetry 100 97 96 Oxygen Delivery Method Simple Mask Room Air Room Air Oxygen Flow Rate 10 10/04/22 10:53 10/04/22 10:48 10/04/22 11:04 Temperature 97.3 F L Pulse Rate 59 L 64 58 L Respiratory Rate 12 12 12 Blood Pressure 110/61 107/63 119/66 Pulse Oximetry 100 98 100 Oxygen Delivery Method Simple Mask Simple Mask Simple Mask Oxygen Flow Rate 10 10 10 10/04/22 11:35 10/04/22 12:05 10/04/22 14:39 Temperature 95.8 F L 96.0 F L 96.1 F L Pulse Rate 51 L 54 L 60 Respiratory Rate 18 18 18 Blood Pressure 101/53 L 111/56 L 124/65 Pulse Oximetry 96 97 90 L Oxygen Delivery Method Oxygen Flow Rate 0 0 0 10/04/22 15:05 Temperature 96.3 F L Pulse Rate 56 L Respiratory Rate 16 Blood Pressure 123/79 Pulse Oximetry 99 Oxygen Delivery Method Oxygen Flow Rate 0 Oxygen Delivery Method Room Air Oxygen Flow Rate 0 PFSH Medical History (Updated 09/27/22 @ 13:14 by Shruthi Bonilla RN) Osteoarthritis Surgical History (Updated 09/27/22 @ 13:12 by Shruthi Bonilla RN) H/O vasectomy Hx of bilateral cataract extraction Hx of knee surgery Social History household members: spouse Smoking Status: Former smoker alcohol intake: current Quality VTE Deep Vein Thrombosis/Pulmonary Embolism Present on Admission: No
[2022-10-04] MEDS: ASPIRIN EC 81 MG TABLET PO (21:06)
[2022-10-04] MEDS: ATORVASTATIN 20 MG TABLET 40 MG PO (21:06)
[2022-10-04] MEDS: METFORMIN HCL 500 MG TABLET 250 MG PO (21:06)
[2022-10-04] MEDS: MELATONIN 3 MG TABLET 6 MG PO (21:54)
[2022-10-05] MEDS: IBUPROFEN 400 MG TABLET PO ×6 (00:05→23:59)
[2022-10-05] MEDS: ACETAMINOPHEN 325 MG TABLET 650 MG PO ×4 (00:05→23:59)
[2022-10-05] MEDS: CEFAZOLIN 2 GM/100 ML PREMIX 100 ML IV (00:05)
[2022-10-05 04:43] LABS: Hematocrit 29.9 % (41-53); Hemoglobin 10.1 g/dL (13.5-17.5)
[2022-10-05 05:16] VITALS: BP 141/74; PULSE 95; RESP 18; TEMP 36.3; O2SAT 97
[2022-10-05] MEDS: LACTATED RINGERS 1,000 ML 100 ML IV (06:00)
[2022-10-05] MEDS: OXYCODONE IR 5 MG TABLET PO ×2 (06:17→12:35)
[2022-10-05 08:01] VITALS: BP 133/69; PULSE 91; RESP 20; TEMP 36.8; O2SAT 97
[2022-10-05] MEDS: DOCUSATE 100 MG CAPSULE PO ×2 (08:05→20:34)
[2022-10-05] MEDS: TAMSULOSIN 0.4 MG CAPSULE PO (08:05)
[2022-10-05] MEDS: AMLODIPINE 5 MG TABLET PO (08:05)
[2022-10-05] MEDS: METFORMIN HCL 500 MG TABLET 250 MG PO ×2 (08:05→20:34)
[2022-10-05] MEDS: ASPIRIN EC 81 MG TABLET PO ×2 (08:05→20:34)
--- NOTE | 2022-10-05 08:31 | PM.DS.1 ---
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 He is failed extensive conservative treatment with braces physical therapy anti-inflammatories and injections.? He has been indicated for total knee arthroplasty.? He has a significant flexion contracture.? The risks and benefits of the procedure have been discussed with the patient and given the opportunity to ask questions.? The risks of surgery include but are not limited to infection, malunion, nonunion, persistence of pain, damage to nerves and blood vessels, posttraumatic arthritis, DVT, PE, coardiopulmonary complications and .? The patient expressed a thorough understanding of the risks and benefits of surgery and has elected to proceed.? Consent was signed. During the operation, the services of a physician surgical appliance fitter were medically indicated and necessary to provide the exposure of the operative site for the surgical procedure and to maintain the limb in a proper position to carry out the operation safely and efficiently.? Without a qualified assistant general manager being present this would extended the operative procedure and made the procedure technically more difficult to perform. Surgeon: Farhana Fitzpatrick Metal Moulder: Eboni Graves Operative Notes Findings: End-stage, [id number] valgus knee arthritis, tricompartmental arthritis, large osteophytes Closure Type: primary Specimen(s): none sent Prosthetic devices, grafts, tissues, transplants, or devices: Olson and nephew journey 2 BCS Femur cobalt chromium size 7 Tibia size 7 Poly size 10 Patella 38 x 9 mm round Discharge Providers Provider Discharge Date: 10/05/22 Primary care physician: Angela Calderon DO Consults: 10/04/22 06:41 Consult to Anesthesiology Routine Comment: Consulting Provider: Anesthesiologist Reason for consultation: Regional block for post operative pain control Has provider been notified: No 10/04/22 11:30 Consult to Discharge Planning Routine Comment: Consult to Occupational Therapy Evaluate & Treat Comment: Physician Instructions: Evaluate and treat Consult to Physical Therapy Evaluate & Treat Comment: Physician Instructions: postop TKA protocol Discharge provider: Eboni Graves PA-C Summary Hospital Course Discharge Diagnosis: Left knee osteoarthritis, s/p left total knee arthroplasty Hospital Course: Mr Wilkins's hospital course was unremarkable. On the day of surgery, he worked w/ PT, and at that time they felt he would need SNF. On the morning of POD# 1, he was feeling well and wanted to go home. He had not yet worked w/ PT but was confident about transferring himself in and out of bed. He was having some difficulty with urinary hesitation and was started on tamsulosin. He was eating without difficulty and his pain was well-controlled with oral medication. Exam Vital Signs (past 8 hours): - 10/05/22 05:16 10/05/22 08:01 Temperature 97.4 F L 98.2 F Pulse Rate 95 H 91 H Respiratory Rate 18 20 Blood Pressure 141/74 H 133/69 Pulse Oximetry 97 97 Oxygen Flow Rate 0 0 Oxygen Delivery Method Room Air Oxygen Flow Rate 0 Narrative Exam Narrative: 5/5 strength in hip flexors, quadriceps, hamstrings, DF, PF, EHL bilaterally. Sensation to light touch intact in BLE. Calf soft, compressible, nontender and without palpable cords or masses. EDGAR and Aquacel CDI. Objective Labs 10/05/22 04:25 Labs: Laboratory Results - last 24 hr 10/05/22 04:25 Hgb 10.1 L Hct 29.9 L PFSH Medical History (Updated 09/27/22 @ 13:14 by Shruthi Bonilla RN) Osteoarthritis Surgical History (Updated 09/27/22 @ 13:12 by Shruthi Bonilla RN) H/O vasectomy Hx of bilateral cataract extraction Hx of knee surgery Social History household members: spouse Smoking Status: Former smoker alcohol intake: current Discharge Assessment & Plan Assessment and Plan Assessment: Left knee osteoarthritis, s/p left total knee arthroplasty Plan of Treatment: Discharge home today if PT agrees and pt able to void independently. Will rx tamsulosin for 2 weeks postop. Multimodal pain control, ASA BID x 6 weeks for VTE prophylaxis, outpt PT, f/u in office in 2 weeks as scheduled. Discharge Plan Discharge Plan Patient Disposition: Home Discharge orders & Medications Discharge Orders: Discharge (Order); Ordered 10/05/22 Ordered By: Eboni Graves Prescriptions: New oxycodone 5 mg tablet 5 mg PO Q4H PRN (Reason: pain) Qty: 40 0RF Rx Instructions: postop exempt ondansetron 4 mg tablet,disintegrating 4 mg PO Q8H PRN (Reason: nausea and vomiting) Qty: 5 1RF docusate sodium [Colace] 100 mg capsule 100 mg PO BID Qty: 30 1RF aspirin 81 mg tablet,delayed release (DR/EC) 81 mg PO BID Qty: 60 0RF Continued rosuvastatin 20 mg Tablet 20 mg PO DAILY metformin 500 mg Tablet 250 mg PO BID amlodipine [Norvasc] 5 mg Tablet 5 mg PO DAILY metoprolol tartrate 50 mg Tablet 50 mg PO BID melatonin 3 mg Tablet 6 mg PO BEDTIME Qty: 90 0RF Follow up/Referrals: Farhana Fitzpatrick MD [Physician] - As previously scheduled (Follow up w/ Dr Fitzpatrick on 10/19/2022 @ 11:20 am at [facility] Angela Calderon DO [Primary Care Provider] - Diet/Activity/Treatments Diet: Diet as Tolerated Activity: Full weight-bearing as tolerated. Use assistive devices as needed. Work on knee range of motion. Cold/Heat Therapy: Ice knee 20 minutes/hour while awake, make sure that there is loss or a towel between skin and ice Other treatments: Medications: -Aspirin 81mg twice daily x6 weeks to prevent blood clots. -OTC Tylenol 500 mg 1 tablet every 4 hours as needed for pain/fever. Max 6 tablets per day. (take scheduled every 4-6 hours for the first few days to week after schedule to help stay on top of your pain) -Ibuprofen 400 mg 1 tablet every 4 hours as needed for pain/inflammation. Max 2,400 mg per day. (take scheduled for the first few days-week after surgery to stay on top of your pain) -Oxycodone 5 mg take 1-2 tablets (5-10mg) every 4 hours as needed for moderate-severe pain (narcotic pain medication). (maximum dose for very severe pain would be 3 pills (15mg) every 3 hours) -ondansetron 4mg - 1 tab every 8 hours as needed for nausea -As needed medications: -Ducolax and /or MiraLax as needed for constipation from narcotic pain medications. -Pepcid AC as needed for stomach upset (usually from aspirin or ibuprofen). Dressing/Wound care: -Remove the Edgar wrap 48 hours after surgery. -Keep Aquacel dressing in place until postoperative follow-up office visit. -Okay to shower. Keep wound out of direct water stream. No soaking or submerging until all the scabs fall off (approximately 4-6 weeks). -No lotions, ointments, or scar creams directly to the incision until the wound is healed (4-6 weeks), -Please call the office if dressing becomes wet, soiled, or saturated. Activities: -Weight-bearing as tolerated. Use front wheeled walker, and progress to cane when safe. -Continue with home exercises as directed by your physical therapist. (work on getting your leg. knee fully straight and bending knee as well- motion after knee replacement is very important) -should have outpatient Physical Therapy visits set up to start within 1 week after surgery -Elevate ?toes above the nose if you have significant swelling in your lower leg. (A wedge pillow is easiest.) -Ice your incision as needed for pain/inflammation/swelling. Protect your skin with a folded pillowcase. -Incentive Spirometer (breathing device from hospital): 5-10xs every hour while awake for the first 1-2 weeks. Follow-up: -Follow-up with your surgeon or PA in the office in 10-14 days after surgery. -Follow-up with your surgeon 6 weeks postoperatively. Contact the office if you have any of the following: ? Painful swelling or numbness ? Unrelenting pain ? Fever (over 101?- it is normal to have a low grade fever for the first day or two following surgery) or chills ? Redness around the incisions ? Color changes ? Continuous bleeding or drainage from the incision (a small amount is expected) ? Excessive nausea or vomiting ? Difficulty breathing If you have an emergency that requires immediate attention such as shortness of breath or chest pain, call 911 or proceed to the nearest emergency room. [facility]: [phone] Pain Medications: It is the policy of [facility] that narcotic medications will only be refilled during office hours. Additionally, due to the alarming rate of narcotic pain medication abuse/dependence, it has become necessary for physician practices to closely manage patient use of prescription narcotic pain relievers, such as Vicodin ([place]), Percocet, and Oxycodone products. Narcotic pain management in the postoperative period may not exceed 6 weeks. If narcotic pain management is required beyond 90 days, then a referral to a Chronic Pain Specialist will be made. If a request for a medication prescription of refill has been made, the physician must review your chart prior to authorizing the request. Please be patient with office staff. If you call during patient hours, your call may not be returned until the end of the day. Skin/Wound/Dressing Care Report to your healthcare provider any signs of infection, such as:: chills, fever, night sweats, increased pain, unusual drainage and unusual redness Visit Report/Discharge Packet Instructions: DI for Knee Replacement Stand Alone Forms: Patient Portal/API Discharge Data Primary Care Provider: Angela Calderon Attending Provider: Farhana Fitzpatrick VTE Deep Vein Thrombosis/Pulmonary Embolism Present on Admission: No
--- NOTE | 2022-10-05 10:35 | PT.IPTN ---
Current Diagnoses Bilateral primary osteoarthritis of knee (10/04/22) Unilateral primary osteoarthritis, left knee (10/04/22) Other specified joint disorders, unspecified knee (10/04/22) Surgery Performed Operation Date: 10/04/22 07:45 Actual Procedures p Total Knee Arthroplasty(Left) - Farhana Fitzpatrick MD Physical Therapy Treatment Note M2 PT-IP Current Condition Start: 10/04/22 15:27 Freq: NEEDED Status: Active Protocol: Document 10/04/22 14:30 AB (Rec: 10/04/22 15:42 AB [id number]) Physical Therapy Current Condition Current Condition Evaluation Date 10/04/22 Treatment Diagnosis s/p L TKA; difficulty in walking Onset Date 10/04/22 M3 PT-IP Subjective Start: 10/04/22 15:27 Freq: NEEDED Status: Active Protocol: Document 10/05/22 12:17 TS (Rec: 10/05/22 12:40 TS [id number]) Subjective Physical Therapy Visit Type Type Treatment Note Visit Start Time 10:35 Visit Stop Time 11:05 Total Visit Minutes 30 Notes BP taken 141/81 with HOB elevated 45D. 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 M4 PT-IP Mobility and Gait Start: 10/04/22 15:27 Freq: NEEDED Status: Active Protocol: Document 10/05/22 12:17 TS (Rec: 10/05/22 12:40 TS [id number]) PT-Bed Mobility Assessment Supine to Sit Supine to Sit Standby Assistance Scooting Scooting to Edge of Bed Standby Assistance PT-Transfer Assessment Sit to and From Stand Sit to and from Stand Moderate Assistance,1 Person Assistance,Use of Upper Extremities Equipment Transfer Assistive Device Gait Belt,Front Wheeled Walker Orthotic/Prosthetic Devices or Brace: No Transfers Transfer Destination Chair Transfer Technique Stand Pivot Transfer Ability Level of Assist Moderate Assistance Comments Mobility Comments Supine to sit HOB elevated 45D SBA with BUE for uprighting trunk. Sit to stand x1 from EOB ModA with FWW, pt retroleans in standing back on heels, difficulty straightening L knee even when provided cues. He ambulated 1x10' ModA for posterior lean, pt L knee maritza along with R side to a lesser extent, provided cues for knee extension and upright posture, pt has difficulty maintaining upright position. Pt sat back EOB for rest break. Sit to stand from bed x1 with ModA, continues to retrolean. He ambulated another 10' ModA for balance and retroleaning, knees continue to buckle, pt sat back EOB. Pt performed stand pivot transfer to chair ModA for balance and continued retroleaning, pt is quick to sit in chair before it is safe . Pt was left in chair with chair alarm on, call light nearby, RN notified. Gait Assessment Gait Gait Assistance Required: Moderate Assistance,1 Person Assist Distance (Feet) 20 Able to Maintain Weight Bearing Status Yes During Gait Assistive Devices Assistive Device Gait Belt,Front Wheeled Walker Orthotic/Prosthetic Devices or Brace: No Gait Deviations General Gait Pattern Antalgic,Decreased Stride Length,Decreased Feet Clearance,Flexed Trunk,Step-to Gait Factors Limiting Gait Function Factors Limiting Gait Function Decreased Activity Tolerance, Decreased Strength,Difficulty Following Directions, Incoordination,Limited Range of Motion,Pain,Poor Balance, Poor Safety Awareness Comments Gait Comments See mobility comments. Stair Climbing Assessment Comments Stair Climbing Comments Pt has one step to do at home, did not attempt due to safety concerns. PT-Balance Assessment Sitting Balance and Reactions Static Sitting Balance Ability Good Dynamic Sitting Balance Ability Fair Standing Balance and Reactions Static Standing Balance Ability Poor Dynamic Standing Balance Ability Poor Device Used FWW M5 PT-IP Objective Assessments Start: 10/04/22 15:27 Freq: NEEDED Status: Active Protocol: Document 10/04/22 14:30 AB (Rec: 10/04/22 15:42 AB [email or web address]) Orientation Orientation/Cognition Level of Alertness Alert Orientation Name,Place,Situation Language Function Ability Hard of Hearing Safety Awareness Decreased Safety Awareness Memory Description Short Term Impaired Gross Range of Motion Lower Extremity ROM Assessment Left Impaired Impairments PROM: L knee flexion ~ 70 deg L knee extension: ~ 20 deg less to 0 Strength Lower Extremity Strength Assessment Left Impaired Hip 4-/5 Knee 3+/5 Sensation Assessment Sensation Gross Sensation WNL Muscle Tone Muscle Tone WNL Yes M6 PT-IP Treatment Start: 10/04/22 15:27 Freq: NEEDED Status: Active Protocol: Document 10/05/22 12:17 TS (Rec: 10/05/22 12:40 TS [id number]) Physical Therapy Treatment Exercises Exercises Heel Slides Education Education Provided Precautions,Weight Bearing Status,Post-Op Packet,Safety Other Treatments Other Treatment Performed Pt perfromed heel slides and quad sets. Educated pt on the importance of post-op ex. M7 PT-IP Assessment and Plan Start: 10/04/22 15:27 Freq: NEEDED Status: Active Protocol: Document 10/05/22 12:17 TS (Rec: 10/05/22 12:40 TS [id number]) PT Summary Assessment and Plan Potential Rehabilitation Potential Fair Summary Impairments Pain,ROM,Strength,Balance, Coordination,Sensation,Tone, Cognition,Bed Mobility, Transfers,Gait,Activity Tolerance Progress Towards Goals Slow Progress due to Pain,Slow Progress due to Medical Issues,Slow Progress due to Activity Tolerance Assessment Summary Pt is making slow progress with his mobility this session . He is SBA for all bed mobility with elevatd HOB. He required ModA for sit to stands and for gait. Sit to stands x2 ModA pt with heavy retrolean, required cues for upright posture and L knee straight, pt improved slightly with standing balance. He ambulated 2x10' ModA for continued retroleaning due to buckling of bilateral knees, more on L side vs R. He performed a stand pivot transfer with FWW to chair ModA for continued retrolean, pt was quick to sit before it was safe. PT at this time is recommending SNF for continued skilled therapy and to improve strength, gait and transfers. Pt has spouse at home but cannot assist pt with mobility needs. Goals Bed Mobility Goal Independent Transfer Goal Standby Assistance,Front Wheeled Walker Gait Goal Standby Assistance,Front Wheel Walker Gait Distance 100 Other Goals improv ambulation using FWW 200 ft SBA up/down 1 step using FWW SBA Days to Meet Goals 10 Frequency of Treatment Frequency Of Treatment Twice a Day Treatment Plan Physical Therapy Treatment Plan Bed Mobility Training,Transfer Training,Gait Training, Therapeutic Exercise,Balance Retraining,Post Op Education, Discharge Planning,Hot or Cold Pack,Neuromuscular Re-ed, Coordination Retraining,Manual Therapy Weight Bearing Status Weight Bearing Status Weight Bear as Tolerated Allowed Weight Bearing Amount (enter % LLE WBAT or #) (%) Recommendations To Nursing Amount of Assist Needed 1 Person Assist Discharge Recommendations PT Discharge Recommendations SNF Rehab Transportation Needs at Discharge Private Vehicle,Wheelchair/ Cabulance
--- NOTE | 2022-10-05 11:29 | OT.IP.EVAL ---
Current Diagnoses Bilateral primary osteoarthritis of knee (10/04/22) Unilateral primary osteoarthritis, left knee (10/04/22) Other specified joint disorders, unspecified knee (10/04/22) Surgery Performed Operation Date: 10/04/22 07:45 Actual Procedures p Total Knee Arthroplasty(Left) - Fahrana Fitzpatrick MD Past Medical History (Last Updated 09/27/22 @ 13:14 by Shruthi Bonilla RN) Osteoarthritis Surgical History (Last Updated 09/27/22 @ 13:12 by Shruthi Bonilla RN) H/O vasectomy Hx of bilateral cataract extraction Hx of knee surgery Occupational Therapy Inpatient Evaluation/Re-Eval M1 PT/OT-IP Prior Functional Status Start: 10/05/22 11:26 Freq: NEEDED Status: Active Protocol: Document 10/05/22 11:10 [facility] (Rec: 10/05/22 11:47 [facility] [id number]) Medical Review Prior Functional Status Medical History Reviewed Yes Communication able to make needs known Mobility and Gait pt stated that he is modified independent with all mobilities and ambulation using a 4WW; spouse stated that he has 3 falls for the last 2-3 months due to L knee giving out on him Activities of Daily Living and IADL's Pt's has been having to assist with socks and shoes due to his pain. Social History Household Members spouse Living Arrangements House Number of Floors (Floors) One Floor Number of Stairs To Enter/Railing? 1 step to enter Home Environment Standard Height Toilet,High Toilet,Walk in Shower Home Equipment Front Wheel Walker,Four Wheel Walker,Raised Toilet Seat w/ Armrests,Shower Seat with Backrest,Hand Held Shower,Grab Bars In Shower Additional Social History Comment pt lives with spouse Merly but spouse stated that she will not be able to assist pt since she just pulled her back pt has an adjustable bed. M2 OT-IP Current Condition Start: 10/05/22 11:26 Freq: Status: Active Protocol: Document 10/05/22 11:10 [facility] (Rec: 10/05/22 11:47 [facility] [id number]) Occupational Therapy Current Condition Current Condition Evaluation Date 10/05/22 Treatment Diagnosis S/p L TKA Diagnosis Onset Date 10/04/22 M3 OT- IP Subjective and Pain Start: 10/05/22 11:26 Freq: Status: Active Protocol: Document 10/05/22 11:10 [facility] (Rec: 10/05/22 11:47 [facility] [id number]) OT- Subjective Occupational Therapy Visit Type Type Initial Evaluation Visit Start Time 11:10 Visit Stop Time 11:29 Total Visit Minutes 19 Occupational Therapy Visit Comments Patient Comments Pt agreed to get up. Patient/Caregiver Goals TO get better. OT Pain Assessment Pain When Pain Assessed At Rest Pain Present Pain Present Pain Reported Location Left Lower Knee Intensity 5 Scale Used Numeric (0 - 10) M4 OT- IP ADL's Start: 10/05/22 11:26 Freq: Status: Active Protocol: Document 10/05/22 11:10 [facility] (Rec: 10/05/22 11:47 [facility] [id number]) OT ADL-Grooming Comments OT Grooming Comments Pt not wanting to do at this time. OT ADL-Oral Care Comments Oral Care Comments Pt not wanting to do at this time. OT ADL-Dressing General Eval Lower Body Dressing Ability Maximum Assistance Comments OT Dressing Comments Educated pt on LB dressing needs of sock aid, patent legal assistant, and long handle shoe horn. Educated to dress the left side in first and take out last. OT ADL-Toileting Comments OT Toileting Comments Not performed. OT ADL-Bathing Comments OT Bathing Comments Pt will need assist at home for showering needs. M5 OT- IP IADL's Start: 10/05/22 11:26 Freq: Status: Active Protocol: Document 10/05/22 11:10 [facility] (Rec: 10/05/22 11:47 [facility] [id number]) OT-Instrumental Activities of Daily Living Deficits IADL Deficits Identified Deficits Home Safety Awareness Awareness of Need for Assistance at Home Good Awareness Medication Management Medication Management Caregiver Administers Money Management Money Management Caregiver Provides Assistance Meal Preparation Meal Preparation Caregiver Provides Assist M6 OT- IP Functional Cognition Start: 10/05/22 11:26 Freq: Status: Active Protocol: Document 10/05/22 11:10 [facility] (Rec: 10/05/22 11:47 [facility] [id number]) Cognitive Factors Limiting Selfcare Function Cognitive Ability Level of Alertness Alert Patient Orientation Name,Place,Situation Attention Span Ability Capable of Focused Attention, Capable of Sustained Attention Ability to Follow Commands Able to Follow One Step Commands Cognitive Comments Cognitive Assessment Comments Pt able to follow commands for ADL and mobility needs. OT- Vision and Hearing OT- Hearing Assessment OT- Hearing Assessment WFL M7 OT- IP Mobility and Balance Start: 10/05/22 11:26 Freq: Status: Active Protocol: Document 10/05/22 11:10 [facility] (Rec: 10/05/22 11:47 [facility] [id number]) OT-Transfer Assessment Sit to and From Stand Sit to and from Stand Moderate Assistance Transfers Transfer Ability Moderate Assistance Technique Transfer Destination Bed,Chair Devices Transfer Assistive Devices Gait Belt,Front Wheeled Walker Comments Mobility Comments Pt needing MODA to come to stand to the FWW from the recliner and assist for balance as tends to stand on his heels. Pt needing assist to keep forwards and guide the FWW. OT- Balance Assessment Sitting Balance and Reactions Static Sitting Balance Ability Good Dynamic Sitting Balance Ability Fair Standing Balance and Reactions Static Standing Balance Ability Poor Dynamic Standing Balance Ability Poor Comments Other Balance Tests/Deviations/Treatment Pt tends to lean backwards : into posterior tilt and on his heels and needing assist to get his weight over his feet. Pt heavily relies on his BUE on the FWW. Pt is a high fall risk and has already had several falls prior to his knee surgery. M8 OT- IP Objective Assessments Start: 10/05/22 11:26 Freq: Status: Active Protocol: Document 10/05/22 11:10 [facility] (Rec: 10/05/22 11:47 [facility] [id number]) OT Gross Range of Motion Upper Extremity Range of Motion Assessment Left Impaired ROM Impairments Pt's LUE decreases 0-110 shoulder flexion OT Strength Comments Strength Comments Except for left shoulder BUE WFL. M9 OT- IP Assessment and Plan Start: 10/05/22 11:26 Freq: Status: Active Protocol: Document 10/05/22 11:10 [facility] (Rec: 10/05/22 11:47 [facility] [id number]) OT Summary Assessment and Plan Potential Rehabilitation Potential Good Analytic Complexity at Evaluation Moderate Summary OT Impairments Pain,Balance,Functional Cognition,Functional Mobility, Grooming,Dressing,Toileting, Bathing,Toilet Transfers, Shower Transfers,Activity Tolerance Progress Towards Goals Slow Progress due to Pain,Slow Progress due to Medical Issues,Slow Progress due to Activity Tolerance Assessment Summary Pt low complexity and main barriers are a step, decreased balance, and activity tolerance. Pt is a high fall risk as prior to having his knee surgery had 3 falls in the past 2-3 months. Pt now just having knee surgery is weaker and extremely high risk for falling. Pt's is not able to physically assist, and at this time too much asisst for his to handle. Pt would greatly benefit from skilled rehab to work on his balance, increased mobility and strength for his LLE, and therefore decrease risk for fall and further hospitalization. Pt is motivated and willing to get better. Goals Self-Feeding Goal Independent Grooming Goal Independent Dressing Goal Minimal Assistance Toileting Goal Independent Bathing Goal Standby Assistance Toilet Transfer Goal Independent Shower Transfer Goal Independent Days to Meet Goals 15 Frequency of Treatment Frequency Of Treatment Once a Day Treatment Plan OT Treatment Plan ADL Training,Functional Mobility,Patient/Family Education,Discharge Planning Discharge Recommendations OT Discharge Recommendations SNF Rehab Transportation Needs at Discharge Wheelchair/Cabulance
--- NOTE | 2022-10-05 13:10 | PT.IPTN ---
Current Diagnoses Bilateral primary osteoarthritis of knee (10/04/22) Unilateral primary osteoarthritis, left knee (10/04/22) Other specified joint disorders, unspecified knee (10/04/22) Surgery Performed Operation Date: 10/04/22 07:45 Actual Procedures p Total Knee Arthroplasty(Left) - Farhana Fitzpatrick MD Physical Therapy Treatment Note M2 PT-IP Current Condition Start: 10/04/22 15:27 Freq: NEEDED Status: Active Protocol: Document 10/04/22 14:30 [facility] (Rec: 10/04/22 15:42 AB [id number]) Physical Therapy Current Condition Current Condition Evaluation Date 10/04/22 Treatment Diagnosis s/p L TKA; difficulty in walking Onset Date 10/04/22 M3 PT-IP Subjective Start: 10/04/22 15:27 Freq: NEEDED Status: Active Protocol: Document 10/05/22 14:44 TS (Rec: 10/05/22 15:09 TS [id number]) Subjective Physical Therapy Visit Type Type Treatment Note Visit Start Time 13:10 Visit Stop Time 14:05 Total Visit Minutes 55 Number of COAL BAGGER Visits 2 Physical Therapy Visit Comments Patient Comments Pt found resting in chair, spouse present, reports continued back and knee pain, agreeable to PT. Therapy Pain Assessment Pain When Pain Assessed At Rest Pain Present Pain Present Pain Reported M4 PT-IP Mobility and Gait Start: 10/04/22 15:27 Freq: NEEDED Status: Active Protocol: Document 10/05/22 14:44 TS (Rec: 10/05/22 15:09 TS [id number]) PT-Transfer Assessment Sit to and From Stand Sit to and from Stand Moderate Assistance,1 Person Assistance,Use of Upper Extremities Equipment Transfer Assistive Device Gait Belt,Front Wheeled Walker Orthotic/Prosthetic Devices or Brace: No Comments Mobility Comments Sit to stand x1 from chair ModA, provided cues weight forward and BUE support pushing from arms of chair. In standing pt's kees continue to buckle with increased retroleaning, cues provided for upright posture and knee extension, pt slightly improves balance. He ambulated ~50' ModA-Isidra with buckling of LEs and retroleaning, pt required rest break after ~20' due to pain in knee and back. Sit to stand from elevated bed ModA, pt braces back of LEs against bed for balance. He ambulated another 20' ModA- Isidra, knees continue to buckle with increased duration with gait, required cues for staying in the FWW, pt tends to step sideways with FWW and LLE outside FWW. Pt performed stairs x2 ModA on step stool with LUE counter support, some buckling but no LOB. Pt attempted to use toilet, sit to stand from toilet with grab bar and FWW ModA. He ambulated back to chair, he quick to sit with poor awareness of chair. He was left in bedside chair with call light nearby, spouse in room, RN notified. Gait Assessment Gait Gait Assistance Required: Moderate Assistance,1 Person Assist Distance (Feet) 50 Able to Maintain Weight Bearing Status Yes During Gait Assistive Devices Assistive Device Gait Belt,Front Wheeled Walker Orthotic/Prosthetic Devices or Brace: No Gait Deviations General Gait Pattern Antalgic,Decreased Stride Length,Decreased Feet Clearance,Flexed Trunk,Step-to Gait Factors Limiting Gait Function Factors Limiting Gait Function Decreased Activity Tolerance, Decreased Strength,Difficulty Following Directions, Incoordination,Limited Range of Motion,Pain,Poor Balance, Poor Safety Awareness Comments Gait Comments See mobility comments. Stair Climbing Assessment Evaluation Level of Assist On Stairs Moderate Assistance,1 Person Assistance Devices Stair Climbing Assistive Devices Left Railing Technique/Endurance Stair Climbing Direction Ascend and Descend Stair Climbing Technique Step to Step Number of Steps Climbed 2 Comments Stair Climbing Comments See mobility comments. PT-Balance Assessment Sitting Balance and Reactions Static Sitting Balance Ability Good Dynamic Sitting Balance Ability Fair Standing Balance and Reactions Static Standing Balance Ability Poor Dynamic Standing Balance Ability Poor Device Used FWW M5 PT-IP Objective Assessments Start: 10/04/22 15:27 Freq: NEEDED Status: Active Protocol: Document 10/04/22 14:30 [facility] (Rec: 10/04/22 15:42 AB [id number]) Orientation Orientation/Cognition Level of Alertness Alert Orientation Name,Place,Situation Language Function Ability Hard of Hearing Safety Awareness Decreased Safety Awareness Memory Description Short Term Impaired Gross Range of Motion Lower Extremity ROM Assessment Left Impaired Impairments PROM: L knee flexion ~ 70 deg L knee extension: ~ 20 deg less to 0 Strength Lower Extremity Strength Assessment Left Impaired Hip 4-/5 Knee 3+/5 Sensation Assessment Sensation Gross Sensation WNL Muscle Tone Muscle Tone WNL Yes M6 PT-IP Treatment Start: 10/04/22 15:27 Freq: NEEDED Status: Active Protocol: Document 10/05/22 14:44 TS (Rec: 10/05/22 15:09 TS [id number]) Physical Therapy Treatment Education Education Provided Precautions,Weight Bearing Status,Post-Op Packet,Safety M7 PT-IP Assessment and Plan Start: 10/04/22 15:27 Freq: NEEDED Status: Active Protocol: Document 10/05/22 14:44 TS (Rec: 10/05/22 15:09 TS [id number]) PT Summary Assessment and Plan Potential Rehabilitation Potential Fair Summary Impairments Pain,ROM,Strength,Balance, Coordination,Sensation,Tone, Cognition,Bed Mobility, Transfers,Gait,Activity Tolerance Progress Towards Goals Slow Progress due to Pain,Slow Progress due to Medical Issues,Slow Progress due to Activity Tolerance Assessment Summary Pt continues to make slow progress with his mobility. He continues to require ModA for sit to stands and for gait w/ FWW. Spouse attempted to help stand pt from chair initially but could not provide the assist level needed. He progressed his gait to ~50' in room ModA for retroleaning and buckling of knees. pt does improve balance when provided cues but is very brief. He has poor safety awareness with mobility, he is quick to sit before it is safe to do so. He performed stairs ModA with cues for counter support and step sequencing. PT continues to recommend SNF for progression of functional mobility and activity tolerance before return home. Spouse rick provide the assist level he currently needs for safe d/c to home. Goals Bed Mobility Goal Independent Transfer Goal Standby Assistance,Front Wheeled Walker Gait Goal Standby Assistance,Front Wheel Walker Gait Distance 100 Other Goals improv ambulation using FWW 200 ft SBA up/down 1 step using FWW SBA Days to Meet Goals 10 Frequency of Treatment Frequency Of Treatment Twice a Day Treatment Plan Physical Therapy Treatment Plan Bed Mobility Training,Transfer Training,Gait Training, Therapeutic Exercise,Balance Retraining,Post Op Education, Discharge Planning,Hot or Cold Pack,Neuromuscular Re-ed, Coordination Retraining,Manual Therapy Weight Bearing Status Weight Bearing Status Weight Bear as Tolerated Allowed Weight Bearing Amount (enter % LLE WBAT or #) (%) Recommendations To Nursing Amount of Assist Needed 1 Person Assist Discharge Recommendations PT Discharge Recommendations SNF Rehab Transportation Needs at Discharge Private Vehicle,Wheelchair/ Cabulance
[2022-10-05 15:34] VITALS: BP 156/115; PULSE 89; RESP 18; TEMP 36.1; O2SAT 97
--- NOTE | 2022-10-05 16:47 | CM.DANOTE ---
DCP Assessment: Patient is a 82yo M here following planned left knee surgery with Dr. Fitzpatrick on 10/04/22. Payer: [facility] and self pay PCP: Angela FERRARI reviewed EMR. PT/OT are commending a SNF at this time due to patient struggles with mobility. Patient lives at home with spouse and PT/OT report spouse is not able to care for patient's needs at this time. From pt note, patient has had 3 falls over the past 2-3 months due to left knee giving out. There is one floor to their house and one step to enter house. MISSION MANAGER sent PN, PT/OT note to [facility] in order to get SNF authorization. Rosa Ibrahim, child support case officer at [facility], said she would review and get back to this author re: SNF auth. MISSION MANAGER entered room and introduced self and role. Patient was sitting up in chair and appeared A/Ox4. Patient was accompanied by spouse Merly Cronin ([phone]). Spouse reports she does not believe she can care for him with his current needs due to her own back injury. Patient has been to [facility] before and wants to go back there, and is willing to go to [facility] if needed. Spouse asked about out of pocket cost for [facility]. Spouse and patient report they cannot afford the estimated out of pocket cost. MISSION MANAGER provided spouse with [employer] booklet for additional caregiving needs for the both of them upon patient d/c from here or SNF. TIPPLE SUPERVISOR reports patient has yet to void and they need to do a bladder scan. Plan: pending [facility] authorization. PT/OT recommend SNF. [facility] first choice. CM team will follow up with [facility] in morning and continue to follow closely. VONDA Easley Discharge Planning/Care Management CM Discharge Assessment Start: 10/05/22 16:44 Freq: Status: Active Protocol: Document 10/05/22 16:44 [facility] (Rec: 10/05/22 16:47 [facility] [id number]) Discharge Planning Assessment Assigned Poultry Husbandry Worker VONDA Sandoval DPOA/Assigned Designee Name Merly (spouse) Contact Information [phone] Advance Directives? No Advance Directives on File No History Provided By Patient,Significant Other, Medical Record Prior Living Arrangements House Household Members spouse Willing to Return to Facility? No Independent with ADL's Yes Is patient alert and oriented? Yes DME Already Rented / Owned Elevated Toilet Seat,FWW / Walker Comment Adjustable bed Patient/Family Preference Long-Term Facility Comment PT/Ot recommend SNF Barriers to Discharge Yes Comment Pending [facility] authorization for SNF Discharge Plan Home Transportation Arrangement Spouse Referrals Initiated None needed Additional Comment August from [facility] says they have beds if [facility] approves authorization If patient plan is SNF: Has PASSR been No completed? SNF/HH Preference [facility] Whiteboard Updated in Patient Room with Yes name and ext. # of Poultry Husbandry Worker Review Status In Process Next Review Type Continued Stay Review Pre-Anesthesia Assessment Start: 09/27/22 12:17 Freq: Status: Complete Protocol: Document 09/27/22 12:17 [facility] (Rec: 09/27/22 13:29 [facility] [id number]) Pre-Anesthesia Assessment Preferred Name Bill Patient Information Reviewed Via Phone Assessment Assessment Completed With Patient Diagnostic Results BMP/CMP,CBC,EKG Comment Outside labs/EKG scanned Primary Care Provider Winston Thrasher Seen Specialist in Last 12 Months Yes Specialist Seen Orthopedist Primary Language Lithuanian Preferred Language Lithuanian Logistics Program Manager Required No Height 187.96 cm Weight 99.79 kg Body Mass Index (BMI) 28.2 Hearing Ability Normal Visual Assist Magnifying Glass Dentition Type Teeth, Natural Present,Full- Upper Barriers to Learning Age related,Memory Hx Anesthesia Reactions No Hx Family Anesthesia Reaction No Hx Malignant Hyperthermia No Hx Blood Transfusions No Anesthesia Review Requested No Saw Sharpener No alcohol intake current alcohol intake frequency 0-2 drinks per day Smoking Status Former smoker Tobacco type e-cigarettes how long ago did patient quit smoking 35 years ago Substance Use Type does not use Pain Present Pain Reported Musculoskeletal Symptoms Abnormal Gait,Back Pain, Difficulty Walking,Joint Pain History of Falling (Recent or History of Yes ) Patient is completely paralyzed or No completely immobile Prosthesis or Orthotic Device Cane,Front Wheel Walker Mental Status Oriented to own ability Is patient on oxygen? No Does patient have CRAIG/SOB No Hx Sleep Apnea No Currently Taking a Beta Reid Yes: Metoprolol Can You Climb a Flight of Stairs Without Yes SOB Hx Chest Pain No Hx SOB No Hx Syncope or Dizziness No Anti-Coagulant Therapy No Has a Bacon Skinner No Cardiac Testing No Hx Pacemaker/ICD No Pacemaker Rep Required? No Cardiac Clearance Received Not Applicable Diet Type At Home Regular Dysphagia No Gastrointestinal Symptoms None Chronic UTI No Urinary Catheter Present No Hx Urinary Self Catheterization No Diabetes Yes HgbA1C 6.8 Date 09/05/22 Hx Drug Resistant Organism No Presence of External or Internal Medical Yes: Gianni eye IOLs Devices Have you had any close contact with No someone diagnosed with COVID-19? Received a COVID vaccine? Yes Received all doses? Yes Marital Status Lives With spouse Current Living Arrangements House Number of Floors (Floors) One Floor Support System Spouse Does the Patient Have Assistance After Yes Surgery Patient Discharge Plan Description Return Home Comment Pt not advised on length stay per surgeon Feels Safe in Current Environment Yes Been Physically Hurt or Threatened By a No Person in Current Environment Do you have thoughts of harming yourself None or others? Are you currently considering suicide? No Do you have a plan to hurt yourself or No Plan others? Do You Have Any Spiritual Beliefs That No May Affect Your HC Choices? Do You Have Any Cultural Practices That No May Affect Your HC Choices? Comment Mosque Who Can We Speak to About Patient's Care Family, friends Identifying Code for Release of Patient Declines to issue Information Health Care Proxy/Next of Kin Merly () Health Care Proxy . cell Emergency Contact Name Merly () Emergency Contact . cell Advance Directives? No Power of Aquatics Manager Yes Power of Aquatics Manager Name Merly () Power of Aquatics Manager . cell PAC Instructions Diabetes instructions,Durable medical equipment,Medications to take/avoid,Nasal antibiotic ,No ETOH/petroleum product on skin DOS,NPO,Pre-surgical wash ,Sensory aids,Sturdy shoes/ comfortable clothes,Do not bring valuables and remove jewelry
[2022-10-05] MEDS: OXYCODONE IR 10 MG TABLET PO (17:07)
[2022-10-05 20:15] VITALS: BP 151/85; PULSE 101; RESP 18; TEMP 36.5; O2SAT 97
[2022-10-05] MEDS: ATORVASTATIN 20 MG TABLET 40 MG PO (20:34)
[2022-10-05] MEDS: MELATONIN 3 MG TABLET 6 MG PO (20:34)
[2022-10-06 01:27] VITALS: BP 128/68; PULSE 94; RESP 18; TEMP 36.3; O2SAT 97
--- NOTE | 2022-10-06 02:29 | PC.NURSE ---
Pt A&Ox4, VSS. Bladder scan showed 400-500 mL, called Dr. Olson per order. In and out cath done with 350 mL OP clear yellow urine with small blood clot in last 2-3 inches of catheter possibly blocking further output. Patient tolerated well.
[2022-10-06] MEDS: IBUPROFEN 400 MG TABLET PO ×4 (03:16→20:23)
[2022-10-06] MEDS: OXYCODONE IR 10 MG TABLET PO ×5 (03:17→22:39)
[2022-10-06 05:18] VITALS: BP 141/77; PULSE 88; RESP 18; TEMP 36.3; O2SAT 97
[2022-10-06] MEDS: ACETAMINOPHEN 325 MG TABLET 650 MG PO ×3 (05:19→18:51)
--- NOTE | 2022-10-06 06:22 | PC.NURSE ---
Pt A&Ox4, VSS. Left leg edematous with CMS intact. Edema increased during shift, skin taut, normothermic, pt c/o increased pain. Elevated leg further, applied ice to knee. Edema slightly reduced, pt reported reduced pain.
[2022-10-06 07:25] VITALS: BP 138/76; PULSE 85; RESP 17; TEMP 36.8; O2SAT 98
[2022-10-06] MEDS: AMLODIPINE 5 MG TABLET PO (08:03)
[2022-10-06] MEDS: ASPIRIN EC 81 MG TABLET PO ×2 (08:03→20:25)
[2022-10-06] MEDS: DOCUSATE 100 MG CAPSULE PO ×2 (08:04→20:27)
[2022-10-06] MEDS: TAMSULOSIN 0.4 MG CAPSULE PO (08:04)
[2022-10-06] MEDS: METFORMIN HCL 500 MG TABLET 250 MG PO ×2 (08:04→20:27)
--- NOTE | 2022-10-06 09:30 | PT.IPTN ---
Current Diagnoses Bilateral primary osteoarthritis of knee (10/05/22) Unilateral primary osteoarthritis, left knee (10/05/22) Other specified joint disorders, unspecified knee (10/05/22) Surgery Performed Operation Date: 10/04/22 07:45 Actual Procedures p Total Knee Arthroplasty(Left) - Farhana Fitzpatrick MD Physical Therapy Treatment Note M2 PT-IP Current Condition Start: 10/04/22 15:27 Freq: NEEDED Status: Active Protocol: Document 10/04/22 14:30 AB (Rec: 10/04/22 15:42 AB [id number]) Physical Therapy Current Condition Current Condition Evaluation Date 10/04/22 Treatment Diagnosis s/p L TKA; difficulty in walking Onset Date 10/04/22 M3 PT-IP Subjective Start: 10/04/22 15:27 Freq: NEEDED Status: Active Protocol: Document 10/06/22 09:00 KS (Rec: 10/06/22 10:39 KS [id number]) Subjective Physical Therapy Visit Type Type Treatment Note Visit Start Time 09:00 Visit Stop Time 09:30 Total Visit Minutes 30 Number of HOSPITAL STAFF PHARMACIST Visits 3 Physical Therapy Visit Comments Patient Comments Pt in bed upon arrival, agreeable to work w/ PT. Therapy Pain Assessment Pain When Pain Assessed At Rest Pain Present Pain Present Denied Pain M4 PT-IP Mobility and Gait Start: 10/04/22 15:27 Freq: NEEDED Status: Active Protocol: Document 10/06/22 09:00 KS (Rec: 10/06/22 10:39 KS [id number]) PT-Bed Mobility Assessment Supine to Sit Supine to Sit Standby Assistance Scooting Scooting to Edge of Bed Standby Assistance PT-Transfer Assessment Sit to and From Stand Sit to and from Stand Moderate Assistance,1 Person Assistance,Use of Upper Extremities Equipment Transfer Assistive Device Gait Belt,Front Wheeled Walker Orthotic/Prosthetic Devices or Brace: No Transfers Transfer Destination Chair Transfer Technique Stand Step Pivot Transfer Ability Level of Assist Maximum Assistance,1 Person Assistance Comments Mobility Comments Pt in bed upon arrival, recently medicated and agreeable to work w/ PT. Pt SBA for sup<>Sit and scooting EOB. Mod A for sit<>stand w/ FWW, pt had strong retrolean, was unable to find balance w/o leaning against bed frame and unable to keep wheels of FWW on floor, needing Max A to remain upright. Pt attempted two more sit<>Stands and had the same results despite verbal and tactile cues. On third attempt, pts balance appeared slightly improved and he performed stand step pivot to chair w/ FWW but quickly lost balance, leaning backawards and required Max A for transfer, max verbal and tactile cues for FWW mgmt as well. Poor eccentric control for descent into chair. Reveiwed LE exercises to promote blood flow and strengthening. Pt left in chair w/ in room and all needs in reach. Gait Assessment Gait Gait Assistance Required: Maximum Assistance,1 Person Assist Distance (Feet) 3 Able to Maintain Weight Bearing Status Yes During Gait Assistive Devices Assistive Device Gait Belt,Front Wheeled Walker Orthotic/Prosthetic Devices or Brace: No Gait Deviations General Gait Pattern Antalgic,Decreased Stride Length,Decreased Feet Clearance,Flexed Trunk,Step-to Gait Factors Limiting Gait Function Factors Limiting Gait Function Decreased Activity Tolerance, Decreased Strength,Difficulty Following Directions, Incoordination,Limited Range of Motion,Pain,Poor Balance, Poor Safety Awareness Comments Gait Comments See mobility comments. Only able to perform stand step pivot today. Stair Climbing Assessment Comments Stair Climbing Comments Not safe to attempt. PT-Balance Assessment Sitting Balance and Reactions Static Sitting Balance Ability Good Dynamic Sitting Balance Ability Fair Standing Balance and Reactions Static Standing Balance Ability Poor Dynamic Standing Balance Ability Poor Device Used FWW M5 PT-IP Objective Assessments Start: 10/04/22 15:27 Freq: NEEDED Status: Active Protocol: Document 10/04/22 14:30 AB (Rec: 10/04/22 15:42 AB [id number]) Orientation Orientation/Cognition Level of Alertness Alert Orientation Name,Place,Situation Language Function Ability Hard of Hearing Safety Awareness Decreased Safety Awareness Memory Description Short Term Impaired Gross Range of Motion Lower Extremity ROM Assessment Left Impaired Impairments PROM: L knee flexion ~ 70 deg L knee extension: ~ 20 deg less to 0 Strength Lower Extremity Strength Assessment Left Impaired Hip 4-/5 Knee 3+/5 Sensation Assessment Sensation Gross Sensation WNL Muscle Tone Muscle Tone WNL Yes M6 PT-IP Treatment Start: 10/04/22 15:27 Freq: NEEDED Status: Active Protocol: Document 10/06/22 09:00 KS (Rec: 10/06/22 10:39 KS [id number]) Physical Therapy Treatment Exercises Exercises Ankle Pumps,Gluteal Sets,Quad Sets,Heel Slides,Straight Leg Raises Education Education Provided Precautions,Weight Bearing Status,Post-Op Packet,Safety Other Treatments Other Treatment Performed Discussed need for SNF. Pt and agreeable. M7 PT-IP Assessment and Plan Start: 10/04/22 15:27 Freq: NEEDED Status: Active Protocol: Document 10/06/22 09:00 KS (Rec: 10/06/22 10:39 KS [id number]) PT Summary Assessment and Plan Potential Rehabilitation Potential Fair Summary Impairments Pain,ROM,Strength,Balance, Coordination,Sensation,Tone, Cognition,Bed Mobility, Transfers,Gait,Activity Tolerance Progress Towards Goals Slow Progress due to Medical Issues,Slow Progress due to Activity Tolerance Assessment Summary Pt required increased level of assistance today and Max A to remain balanced while standing w/ FWW. Presents as high fall risk due to strong retrolean, poor balance, poor safety awareness, and weakness . Max A and max verbal and tactile cues for stand step pivot from bed to chair. Pt will require SNF to improve functional mobility independence, strength and balance. He is not safe to return home d/t high fall risk and spouse being unable to provide necessary support. Goals Bed Mobility Goal Independent Transfer Goal Standby Assistance,Front Wheeled Walker Gait Goal Standby Assistance,Front Wheel Walker Gait Distance 100 Other Goals improv ambulation using FWW 200 ft SBA up/down 1 step using FWW SBA Days to Meet Goals 10 Frequency of Treatment Frequency Of Treatment Twice a Day Treatment Plan Physical Therapy Treatment Plan Bed Mobility Training,Transfer Training,Gait Training, Therapeutic Exercise,Balance Retraining,Post Op Education, Discharge Planning,Hot or Cold Pack,Neuromuscular Re-ed, Coordination Retraining,Manual Therapy Weight Bearing Status Weight Bearing Status Weight Bear as Tolerated Allowed Weight Bearing Amount (enter % LLE WBAT or #) (%) Recommendations To Nursing Amount of Assist Needed 1 Person Assist Discharge Recommendations PT Discharge Recommendations SNF Rehab Transportation Needs at Discharge Wheelchair/Cabulance
[2022-10-06 11:25] VITALS: BP 136/74; PULSE 84; RESP 20; TEMP 36.3; O2SAT 99
--- NOTE | 2022-10-06 12:40 | P.PN_ITS ---
Subjective Subjective Date Patient Seen: 10/06/22 Time Patient Seen: 10:00 Interval history: Patient is sitting up in his chair this morning with at bedside. He complains that he is having moderate pain to the knee and is waiting to receive his next dose of medication. He states that he wishes physical therapy went better than it has. is concerned that she will not be able to care for patient given his current physical needs. We discussed patient being discharged to custodial for additional rehab before returning home. He denies numbness and tingling to the distal lower extremities. Denies fever and chills. Exam Vital Signs (past 8 hours): - 10/06/22 05:18 10/06/22 07:25 10/06/22 07:30 Temperature 97.3 F L 98.2 F Pulse Rate 88 85 Respiratory Rate 18 17 Blood Pressure 141/77 H 138/76 Pulse Oximetry 97 98 Oxygen Delivery Method Room Air Oxygen Flow Rate 0 0 10/06/22 10:51 10/06/22 11:25 Temperature 97.4 F L Pulse Rate 84 Respiratory Rate 20 Blood Pressure 136/74 Pulse Oximetry 99 Oxygen Delivery Method Room Air Oxygen Flow Rate 0 Oxygen Delivery Method Room Air Oxygen Flow Rate 0 Narrative Exam Narrative: Pleasant 82-year-old male. Awake, alert, and oriented. Sitting up in chair this morning. Intraoperative Aquacel bandage clean, dry, and intact. Moderate swelling, mild erythema to the left knee, no pain on palpation. Bilateral calves soft, compressible, nontender with no palpable cords or masses. Objective Labs 10/05/22 04:25 [facility] Medical History Osteoarthritis Surgical History H/O vasectomy Hx of bilateral cataract extraction Hx of knee surgery Social History household members: spouse Smoking Status: Former smoker alcohol intake: current Assessment & Plan Assessment & Plan narrative: Patient's postoperative course is complicated by unsteadiness on his feet as well as urinary retention. Patient is recommended by physical therapy to continue rehabilitation at custodial facility before returning home. Disposition pending, waiting for responses from SNF per care management. He has had trouble urinating. We will continue daily tamsulosin, bladder scan, urinary catheter as necessary. Quality VTE Deep Vein Thrombosis/Pulmonary Embolism Present on Admission: No
[2022-10-06] MEDS: ONDANSETRON 4 MG/2 ML INJ IV (15:10)
[2022-10-06] MEDS: ONDANSETRON 4 MG ODT PO (15:16)
[2022-10-06 15:35] VITALS: BP 118/58; PULSE 79; RESP 17; TEMP 36.8; O2SAT 97
--- NOTE | 2022-10-06 15:48 | PC.NURSE ---
/Mobility: Pt has been unable to void since surgery. He has been unable to void any urine, even a small amt. Pt is requesting a east to be left in. SThis is ridiculous and it hurts. Pt was unable to void again today, not even a drop. Pt has no sensation or urge to void and has not for the last several days. Previous night nurse during report reported that when she had performed the in and out cath she had several blood clots. VERÓNICA Maddox called and notified of pt's request for a east and last cath had been bloody with clots. Order received to leave east in this time. East placed, pt had an extremely large blood clot coming through the catheter from insertion side to into the the drainage tubing side blocking flow of urine. Catheter gently irrigated with saline, clot cleared and was able to get east to drain, first red bloody urine with larger clots and then as urine flowed the patient had less red urine and clots became much small. Now the urine is a yellow pink color with more sediment then clots. Will cont to monitor uop. Can irrigate again as needed per orders. Mobility: Pt requires maximum assistance to get from bed to chair and back again. Requires 2 people as pt tends to lean back and can only take tiny steps. Stops freq, doesn't always listen to instructions. Must reinforce walker use as he tends to reach out and tries to grab something to hold onto such as the bed rails or handles on something.
--- NOTE | 2022-10-06 16:17 | PT.IPTN ---
Current Diagnoses Bilateral primary osteoarthritis of knee (10/05/22) Unilateral primary osteoarthritis, left knee (10/05/22) Other specified joint disorders, unspecified knee (10/05/22) Surgery Performed Operation Date: 10/04/22 07:45 Actual Procedures p Total Knee Arthroplasty(Left) - Farhana Fitzpatrick MD Physical Therapy Treatment Note M2 PT-IP Current Condition Start: 10/04/22 15:27 Freq: NEEDED Status: Active Protocol: Document 10/04/22 14:30 AB (Rec: 10/04/22 15:42 AB [id number]) Physical Therapy Current Condition Current Condition Evaluation Date 10/04/22 Treatment Diagnosis s/p L TKA; difficulty in walking Onset Date 10/04/22 M3 PT-IP Subjective Start: 10/04/22 15:27 Freq: NEEDED Status: Active Protocol: Document 10/06/22 16:17 AB (Rec: 10/06/22 17:55 AB [email or web address]) Subjective Physical Therapy Visit Type Type Treatment Note Visit Start Time 16:17 Visit Stop Time 16:40 Total Visit Minutes 23 Number of WEB PRODUCER Visits 0 Physical Therapy Visit Comments Patient Comments agreeable to do PT M4 PT-IP Mobility and Gait Start: 10/04/22 15:27 Freq: NEEDED Status: Active Protocol: Document 10/06/22 16:17 AB (Rec: 10/06/22 17:55 AB [email or web address]) PT-Bed Mobility Assessment Rolling Level of Assist Minimal Assistance,1 Person Assistance PT-Transfer Assessment Sit to and From Stand Sit to and from Stand Moderate Assistance,Maximum Assistance,1 Person Assistance ,Use of Upper Extremities Equipment Transfer Assistive Device Front Wheeled Walker Orthotic/Prosthetic Devices or Brace: No Transfers Transfer Destination Chair Transfer Technique ambulated Transfer Ability Level of Assist Maximum Assistance,1 Person Assistance,Use of Upper Extremities Comments Mobility Comments pt completed supine to sit with HOB elevated ~ 30 deg min A and cues. cued to keep trunk forward as pt tends to retrolean. educated pt on sit to stand techniques and how to use FWW for support. completed sit to stand mod A and max cues. ambulated ~ 5 ft using FWW max A and max cues. (+) LOB x 3 with increase posterior LOB, with increase forward leaning and bilateral knee flexion L>R with buckling on LLE. pt requires max cues and repeated cues with all tasks and unable to follow instructions consistently. pt is also impulsive. pt agreed to sit up on chair for dinner. positioned on the chair. call light and table placed within reach. Gait Assessment Gait Gait Assistance Required: Maximum Assistance Distance (Feet) 5 Able to Maintain Weight Bearing Status Yes During Gait Assistive Devices Assistive Device Gait Belt,Front Wheeled Walker Orthotic/Prosthetic Devices or Brace: No Gait Deviations General Gait Pattern Antalgic,Decreased Stride Length,Decreased Feet Clearance,Flexed Trunk,Step-to Gait Factors Limiting Gait Function Factors Limiting Gait Function Decreased Activity Tolerance, Decreased Strength,Difficulty Following Directions,Limited Range of Motion,Pain,Poor Balance,Poor Safety Awareness M5 PT-IP Objective Assessments Start: 10/04/22 15:27 Freq: NEEDED Status: Active Protocol: Document 10/04/22 14:30 AB (Rec: 10/04/22 15:42 AB [id number]) Orientation Orientation/Cognition Level of Alertness Alert Orientation Name,Place,Situation Language Function Ability Hard of Hearing Safety Awareness Decreased Safety Awareness Memory Description Short Term Impaired Gross Range of Motion Lower Extremity ROM Assessment Left Impaired Impairments PROM: L knee flexion ~ 70 deg L knee extension: ~ 20 deg less to 0 Strength Lower Extremity Strength Assessment Left Impaired Hip 4-/5 Knee 3+/5 Sensation Assessment Sensation Gross Sensation WNL Muscle Tone Muscle Tone WNL Yes M6 PT-IP Treatment Start: 10/04/22 15:27 Freq: NEEDED Status: Active Protocol: Document 10/06/22 16:17 AB (Rec: 10/06/22 17:55 AB [email or web address]) Physical Therapy Treatment Education Education Provided Safety M7 PT-IP Assessment and Plan Start: 10/04/22 15:27 Freq: NEEDED Status: Active Protocol: Document 10/06/22 16:17 AB (Rec: 10/06/22 17:55 AB [email or web address]) PT Summary Assessment and Plan Potential Rehabilitation Potential Fair Summary Impairments Pain,ROM,Strength,Balance, Coordination,Sensation,Tone, Cognition,Bed Mobility, Transfers,Gait,Activity Tolerance Progress Towards Goals Slow Progress due to Medical Issues,Slow Progress due to Activity Tolerance,Slow Progress - Other Assessment Summary pt s/p L TKA POD 2. pt continues to require max A with ambulation using FWW and only able to ambulate ~ 5 ft with (+) LOB. pt has decrease safety awareness and difficulty following directions affecting mobility. Pt milad benefit from SNF rehab. pt and spouse stated that their insurance called them that authorization just got approved today. Goals Bed Mobility Goal Independent Transfer Goal Standby Assistance,Front Wheeled Walker Gait Goal Standby Assistance,Front Wheel Walker Gait Distance 100 Other Goals improv ambulation using FWW 200 ft SBA up/down 1 step using FWW SBA Days to Meet Goals 10 Frequency of Treatment Frequency Of Treatment Twice a Day Treatment Plan Physical Therapy Treatment Plan Bed Mobility Training,Transfer Training,Gait Training, Therapeutic Exercise,Balance Retraining,Post Op Education, Discharge Planning,Hot or Cold Pack,Neuromuscular Re-ed, Coordination Retraining,Manual Therapy Weight Bearing Status Weight Bearing Status Weight Bear as Tolerated Allowed Weight Bearing Amount (enter % LLE WBAT or #) (%) Recommendations To Nursing Amount of Assist Needed 1 Person Assist Discharge Recommendations PT Discharge Recommendations SNF Rehab Transportation Needs at Discharge Wheelchair/Cabulance
--- NOTE | 2022-10-06 17:21 | CM.DPC ---
DCP Continued: CM Lead Supply Worker contacted [facility] first thing in am to inquire about SNF authSamir Thompson faxed updated clinical information to [facility]. reported Rosa from [facility] will review. Nursing staff and PT health center assistant are concerned with d/c home and adamantly advocates for patient to d/c to SNF. Nursing staff reports patient is not voiding and put in catheter. Nursing staff reports clot that was impacting voiding. Nurse reports provider wants patient to receive PT Saturday before potential d/c to SNF. Late in afternoon [place] called [employer]SIDE RIGGER to inform SNF approved. Auth #[id number]). OUTSIDE RIGGER updated patient and spouse. They were appreciative of OUTSIDE RIGGER efforts. OUTSIDE RIGGER faxed initial referral information to [facility]. OUTSIDE RIGGER spoke with Jamie at [facility] who reported they will look over referral and get back to us. Jamie reports they have bed availability. Plan: potential d/c to [facility] tomorrow if medically stable. pending [facility] acceptance. CM team will follow closely. PASRR needed. VONDA Easley
[2022-10-06 20:05] VITALS: BP 132/75; PULSE 113; RESP 18; TEMP 36.4; O2SAT 98
[2022-10-06] MEDS: ATORVASTATIN 20 MG TABLET 40 MG PO (20:25)
[2022-10-06] MEDS: MELATONIN 3 MG TABLET 6 MG PO (20:25)
[2022-10-07] MEDS: ACETAMINOPHEN 325 MG TABLET 650 MG PO ×2 (00:10→08:03)
[2022-10-07] MEDS: IBUPROFEN 400 MG TABLET PO ×4 (00:10→11:49)
[2022-10-07 08:29] VITALS: BP 144/76; PULSE 101; RESP 17; TEMP 36.6; O2SAT 96
[2022-10-07] MEDS: AMLODIPINE 5 MG TABLET PO (08:32)
[2022-10-07] MEDS: METFORMIN HCL 500 MG TABLET 250 MG PO (08:32)
[2022-10-07] MEDS: DOCUSATE 100 MG CAPSULE PO (08:33)
[2022-10-07] MEDS: OXYCODONE IR 5 MG TABLET PO ×2 (08:33→13:44)
[2022-10-07] MEDS: TAMSULOSIN 0.4 MG CAPSULE PO (08:33)
[2022-10-07] MEDS: ASPIRIN EC 81 MG TABLET PO (08:33)
--- NOTE | 2022-10-07 11:12 | PT.IPTN ---
Current Diagnoses Bilateral primary osteoarthritis of knee (10/05/22) Unilateral primary osteoarthritis, left knee (10/05/22) Other specified joint disorders, unspecified knee (10/05/22) Surgery Performed Operation Date: 10/04/22 07:45 Actual Procedures p Total Knee Arthroplasty(Left) - Farhana Fitzpatrick MD Physical Therapy Treatment Note M2 PT-IP Current Condition Start: 10/04/22 15:27 Freq: NEEDED Status: Active Protocol: Document 10/04/22 14:30 AB (Rec: 10/04/22 15:42 AB [id number]) Physical Therapy Current Condition Current Condition Evaluation Date 10/04/22 Treatment Diagnosis s/p L TKA; difficulty in walking Onset Date 10/04/22 M3 PT-IP Subjective Start: 10/04/22 15:27 Freq: NEEDED Status: Active Protocol: Document 10/07/22 11:00 KS (Rec: 10/07/22 12:26 KS [id number]) Subjective Physical Therapy Visit Type Type Treatment Note Visit Start Time 11:00 Visit Stop Time 11:12 Total Visit Minutes 12 Number of PATROL MAN Visits 1 Physical Therapy Visit Comments Patient Comments agreeable to do PT M4 PT-IP Mobility and Gait Start: 10/04/22 15:27 Freq: NEEDED Status: Active Protocol: Document 10/07/22 11:00 KS (Rec: 10/07/22 12:26 KS [id number]) PT-Bed Mobility Assessment Supine to Sit Supine to Sit Standby Assistance Scooting Scooting to Edge of Bed Standby Assistance PT-Transfer Assessment Sit to and From Stand Sit to and from Stand Moderate Assistance,1 Person Assistance,Use of Upper Extremities Equipment Transfer Assistive Device Front Wheeled Walker Orthotic/Prosthetic Devices or Brace: No Transfers Transfer Destination Chair Transfer Technique Stand Step Pivot Transfer Ability Level of Assist Maximum Assistance,1 Person Assistance,Use of Upper Extremities Comments Mobility Comments Pt in bed upon arrival. SBA for sup<>Sit and scooting EOB w/ HOB elevated. Mod A and cues for sit<>Stand w/ FWW. Pt unable to shift weight forward despite many verbal and tactile cues and continues to lean very heavily posteriorly needing Max A to maintain balance. Pt performed 4 totall sit<>stands w/ FWW all requiring Mod A for stand and Max A for balance. On his 4th stand he was able to shift his weight forward slightly better and performed stand step pivot transfer to chair but required Max A and max cues for FWW mgmt and sequencing. Pt reported high level of fatigue. Left in chair w/ all needs in reach. Gait Assessment Comments Gait Comments See mobility comments. Only able to perform stand step pivot today. Stair Climbing Assessment Comments Stair Climbing Comments Not safe to attempt. PT-Balance Assessment Sitting Balance and Reactions Static Sitting Balance Ability Good Dynamic Sitting Balance Ability Fair Standing Balance and Reactions Static Standing Balance Ability Poor Dynamic Standing Balance Ability Poor Device Used FWW M5 PT-IP Objective Assessments Start: 10/04/22 15:27 Freq: NEEDED Status: Active Protocol: Document 10/04/22 14:30 AB (Rec: 10/04/22 15:42 AB [id number]) Orientation Orientation/Cognition Level of Alertness Alert Orientation Name,Place,Situation Language Function Ability Hard of Hearing Safety Awareness Decreased Safety Awareness Memory Description Short Term Impaired Gross Range of Motion Lower Extremity ROM Assessment Left Impaired Impairments PROM: L knee flexion ~ 70 deg L knee extension: ~ 20 deg less to 0 Strength Lower Extremity Strength Assessment Left Impaired Hip 4-/5 Knee 3+/5 Sensation Assessment Sensation Gross Sensation WNL Muscle Tone Muscle Tone WNL Yes M6 PT-IP Treatment Start: 10/04/22 15:27 Freq: NEEDED Status: Active Protocol: Document 10/07/22 11:00 KS (Rec: 10/07/22 12:26 KS [id number]) Physical Therapy Treatment Education Education Provided Safety M7 PT-IP Assessment and Plan Start: 10/04/22 15:27 Freq: NEEDED Status: Active Protocol: Document 10/07/22 11:00 KS (Rec: 10/07/22 12:26 KS [id number]) PT Summary Assessment and Plan Potential Rehabilitation Potential Fair Summary Impairments Pain,ROM,Strength,Balance, Coordination,Sensation,Tone, Cognition,Bed Mobility, Transfers,Gait,Activity Tolerance Progress Towards Goals Slow Progress due to Medical Issues,Slow Progress due to Activity Tolerance,Slow Progress - Other Assessment Summary Pts main barrier is poor balance. At this time he is unable to maintain balance unless provided w/ Max A and loses his balance posteriorly if not assisted well enough. He has heavy posterior lean and much difficulty shifting weight forward. He is at high risk for falls and will require SNF to improve safety and functional mobility. cannot assist at home. Goals Bed Mobility Goal Independent Transfer Goal Standby Assistance,Front Wheeled Walker Gait Goal Standby Assistance,Front Wheel Walker Gait Distance 100 Other Goals improv ambulation using FWW 200 ft SBA up/down 1 step using FWW SBA Days to Meet Goals 10 Frequency of Treatment Frequency Of Treatment Twice a Day Treatment Plan Physical Therapy Treatment Plan Bed Mobility Training,Transfer Training,Gait Training, Therapeutic Exercise,Balance Retraining,Post Op Education, Discharge Planning,Hot or Cold Pack,Neuromuscular Re-ed, Coordination Retraining,Manual Therapy Weight Bearing Status Weight Bearing Status Weight Bear as Tolerated Allowed Weight Bearing Amount (enter % LLE WBAT or #) (%) Recommendations To Nursing Amount of Assist Needed 1 Person Assist Discharge Recommendations PT Discharge Recommendations SNF Rehab Transportation Needs at Discharge Wheelchair/Cabulance
[2022-10-07] MEDS: polyethylene glycoL 3350 17 GM POWD.PACK PO (11:49)
--- NOTE | 2022-10-07 11:52 | PM.PNPO.1 ---
Subjective Subjective Interval history: He notes he is doing okay. Both he and his note that he is a little unsteady when he gets up. He has been unable to void spontaneously. He does have a step at home. he has not had a bowel movement yet. Exam Vital Signs (past 8 hours): - 10/07/22 08:29 Temperature 98 F Pulse Rate 101 H Respiratory Rate 17 Blood Pressure 144/76 H Pulse Oximetry 96 Oxygen Flow Rate 0 Oxygen Delivery Method Room Air Oxygen Flow Rate 0 Narrative Exam Narrative: He is alert he is oriented he is resting comfortably in the chair he is able to fire his toe flexors and extensors his calf is soft his dressings intact, his urine is clear Warren catheters in place Objective Labs 10/05/22 04:25 PFSH Medical History Osteoarthritis Surgical History H/O vasectomy Hx of bilateral cataract extraction Hx of knee surgery Social History household members: spouse Smoking Status: Former smoker alcohol intake: current Assessment & Plan Post-op Postoperative Procedures: Procedures Operation Date: 10/04/22 07:45 Actual Procedure Side Surgeon p Total Knee Arthroplasty Left Farhana Fitzpatrick MD Postoperative day: 3 Postoperative status narrative: He is doing okay postoperatively but is having some difficulty with voiding. Allow him to be discharged with a catheter in. He can have his catheter discontinued with a voiding trial with follow-up with Urology next week. I strongly encouraged him to work on progressive range of motion and strengthening. He has not had a bowel movement yet and we are going to make sure he is getting his MiraLax. Postoperative plan: routine post-op care and discharge Postoperative plan narrative: He is going to be discharged to shelter facility today. Quality VTE Deep Vein Thrombosis/Pulmonary Embolism Present on Admission: No
--- NOTE | 2022-10-07 13:59 | PC.NURSE ---
IV removed and patient belongings packed up. Gave report to Brenda at [facility] at approx 1340 pm. patient in room awaiting transport.
--- NOTE | 2022-10-08 09:08 | CM.DPC ---
220: Late Entry: DCP Note for 10/07/22 Jamie from [facility] reported they can accept patient today. Rosa from [facility] called to inquire if they were placing patient or if we were. EARLY CHILDHOOD TEACHER ASSISTANT informed her that we would be placing him and he was set to d[facility]c to [facility]. EARLY CHILDHOOD TEACHER ASSISTANT called Dr. Olson. Dr. Olson reported that she would be rounding on the floor soon and would d/c patient. EARLY CHILDHOOD TEACHER ASSISTANT updated family. They reported being excited to get out of here. Per PT, patient is doing better than he was before but is still recommending patient go to SNF for lack of strength and mobility. EARLY CHILDHOOD TEACHER ASSISTANT completed PASRR. EARLY CHILDHOOD TEACHER ASSISTANT faxed PASRR, signed med list, order, and PT notes to [facility]. There were some issues with [facility] receiving the fax, so EARLY CHILDHOOD TEACHER ASSISTANT faxed it to multiple of their numbers and emailed Jamie the applicable d/c information. EARLY CHILDHOOD TEACHER ASSISTANT unable to send final d/c summary to [facility] due to its pending status from provider. Jamie requested CM send it as soon as available. EARLY CHILDHOOD TEACHER ASSISTANT gave nurse nursing report number. EARLY CHILDHOOD TEACHER ASSISTANT put original PASRR and signed med list in d/c paperwork. EARLY CHILDHOOD TEACHER ASSISTANT updated ELECTROTYPE SERVICER. Plan: d/c to [facility] today at 1400 via facility transportation. CM team will send discharge summary to [facility] when available. CM team will continue to follow as needed. VONDA Easley
== END 2022-10-07 14:00 ==
LOC: OR 16:08 → AC 16:08
PROVIDERS: Admitting Provider Orthopaedic Surgery Foot and Ankle Surgery; PCP Family Medicine; Referring Provider Physical Medicine & Rehabilitation Pain Medicine; Visit Provider Orthopaedic Surgery Foot and Ankle Surgery
PROC: 0SRD0JZ Replacement of Left Knee Joint with Synthetic Substitute, Open Approach (ICD-10-PCS; CPT 27447; principal; 2022-10-04 07:45)
DX: M13.862 Other specified arthritis, left knee (principal); M25.869 Other specified joint disorders, unspecified knee; Z87.891 Personal history of nicotine dependence
CPT/HCPCS: 27447; 36415; 73560; 85014; 85018; 97110; 97116; 97162; 97165; 97530; C1776; G0378; C9290; J0690; J1170; J2405; J2704; J3010

== ENCOUNTER 2022-12-02 19:44 | Emergency (ER) | payer OTHER, SELFPAY ==
[2022-10-04 11:34] VITALS: BMI 28.2
[2022-12-02] VITALS (13 sets, daily range): BP systolic 148–182; BP diastolic 72–93; PULSE 106–115; RESP 17–24; TEMP 37.3; O2SAT 94–98; BMI 27.8
--- NOTE | 2022-12-02 19:59 | DI.RAD.S_ITS ---
PROCEDURE: XR KNEE LT 3V INDICATIONS: pain prior surgery, FALL TECHNIQUE: 3 views of the knee were acquired. COMPARISON: [facility], CR, XR KNEE LT 1TO2V, 10/04/2022, 10:49. FINDINGS: Bones: No fractures or dislocations. No suspicious bony lesions. Knee arthroplasty is present. Hardware is intact without hardware fracture or periprosthetic lucency to suggest loosening. Alignment is stable. Soft tissues: Mild joint effusion. No suspicious soft tissue calcifications. IMPRESSION: No visualized acute fracture or dislocation. However, if clinical concern and/or pain persist, short interval imaging followup in 7-10 days is recommended, as occult injury cannot be definitively excluded. Dictated by: Tiffanie Hough M.D. on 12/02/2022 at 21:04 Approved by: Tiffanie Hough M.D. on 12/02/2022 at 21:04
--- NOTE | 2022-12-02 20:05 | ED.FALL ---
HPI - Fall General Chief Complaint: Extremity Injury, Lower Stated Complaint: L knee not working Time Seen by Provider: 12/02/22 19:46 Source: patient and EMS Mode of arrival: EMS History of Present Illness HPI Narrative: Patient 82-year-old male history of ayu-[id number] diabetes, hypertension hyperlipidemia, NSTEMI presenting today with increasing weakness and left knee pain. He had total knee left arthroplasty left knee October 07 he is actually been doing well. 2 days ago he finally got to participate in some good physical therapy. Today he was using the wrong walker when he typically does not use and got tripped up and fell. He initially required a lift assist then fell again complaining of some left knee pain. He has absolutely no other complaints no chest pain shortness of breath fever chills or any other symptoms. He is noted to be tachycardic and feels warm but is afebrile. Not having any pain in his knee now he. He is able to flex it. Related Data Home Medications Medication Instructions Recorded Confirmed amlodipine 5 mg tablet (Norvasc) 5 mg PO DAILY 02/16/21 10/04/22 metformin 500 mg tablet 250 mg PO BID 02/16/21 10/04/22 metoprolol tartrate 50 mg tablet 50 mg PO BID 02/16/21 10/04/22 rosuvastatin 20 mg tablet 20 mg PO DAILY 09/27/22 10/04/22 Previous Rx's Medication Instructions Recorded melatonin 3 mg tablet 6 mg PO BEDTIME #90 tabs 02/20/21 aspirin 81 mg tablet,delayed 81 mg PO BID #60 tabs 10/04/22 release docusate sodium 100 mg capsule 100 mg PO BID #30 caps 10/04/22 (Colace) ondansetron 4 mg disintegrating 4 mg PO Q8H PRN nausea and 10/04/22 tablet vomiting #5 tabs oxycodone 5 mg tablet 5 mg PO Q4H PRN pain #40 tabs 10/04/22 oxycodone 5 mg tablet 5 mg PO Q3H PRN Pain, Moderate 10/07/22 (4-6) #30 tabs polyethylene glycol 3350 17 gram 17 g PO BID #30 ea 10/07/22 oral powder packet (Miralax) Allergies Allergy/AdvReac Type Severity Reaction Status Date / Time sulfamethoxazole Allergy Severe Hives Verified 10/04/22 06:44 [From Bactrim] trimethoprim [From Bactrim] Allergy Severe Hives Verified 10/04/22 06:44 Review of Systems Review of Systems ROS Unobtainable: All systems reviewed & are unremarkable except as noted in HPI and below Patient History Medical History Osteoarthritis Surgical History H/O vasectomy Hx of bilateral cataract extraction Hx of knee surgery Social History household members: spouse Smoking Status: Former smoker alcohol intake: current Smoking Status: Former smoker alcohol intake frequency: 0-2 drinks per day Substance Use Type: does not use Exam Initial Vital Signs Initial Vital Signs: Vital Signs Blood Pressure 180/93 H 12/02/22 19:48 Pulse Oximetry 96 12/02/22 19:48 GENERAL: Alert pleasant 82-year-old male HEENT: Head atraumatic,EOMI, pupils reactive, face symmetric, [moist] mucous membranes CARDIOVASCULAR: Tachycardic regular no murmurs RESPIRATORY: Breath sounds equal bilaterally, no wheezes rales or rhonchi. ABDOMEN: Soft, nontender. Normoactive bowel sounds all 4 quadrants. No guarding or rebound. EXTREMITIES: Normal range of motion, no clubbing or edema. Neurovascularly intact NEUROLOGICAL: Alert and oriented x4. SKIN: Warm, dry, no laceration, no petechiae, no rashes or lesions. Course Orders Ordered: ED Orders 12/02/22 21:26 Blood Culture Stat 12/02/22 21:53 Trop I [Troponin I] Stat 12/03/22 00:00 COVID19 -Nasal RAPID Stat Discontinued Medications Aspirin (Aspirin 81 Mg Chew Tab) 324 mg PO NOW ONE Stop: 12/02/22 21:57 Last Admin: 12/02/22 22:23 Dose: 324 mg Documented By: DARBY Heparin Sodium (Porcine) (Heparin 5,000 Unit/Ml Vial) 5,000 unit IV NOW ONE Stop: 12/02/22 22:05 Last Admin: 12/02/22 22:31 Dose: 5,000 unit Documented By: DARBY Heparin Sodium/Dextrose (Heparin Drip) 25,000 unit in 500 mls @ 20 mls/hr IV CONT MAURY; Protocol Last Admin: 12/02/22 22:34 Dose: 1,000 units/hr, 20 mls/hr Documented By: DARBY Co-signed By: Lorazepam (Lorazepam 2 Mg/Ml Inj) 0.5 mg IV NOW ONE Stop: 12/03/22 00:13 Last Admin: 12/03/22 00:43 Dose: 0.5 mg Documented By: DARBY Morphine Sulfate (Morphine 2 Mg/Ml Inj) 2 mg IV NOW ONE Stop: 12/02/22 20:00 Last Admin: 12/02/22 21:06 Dose: Not Given Documented By: DARBY Vital Signs Vital signs: Vital Signs - 8 hr 12/02/22 22:00 12/02/22 22:00 12/02/22 22:30 Temperature Pulse Rate 115 H Respiratory Rate 21 Blood Pressure 168/80 H 176/86 H Pulse Oximetry 97 12/02/22 22:30 12/02/22 23:00 12/02/22 23:00 Temperature Pulse Rate 110 H 110 H Respiratory Rate 20 20 Blood Pressure 171/77 H Pulse Oximetry 97 96 12/02/22 23:30 12/02/22 23:30 12/02/22 23:58 Temperature Pulse Rate 110 H Respiratory Rate 22 Blood Pressure 151/72 H 148/80 H Pulse Oximetry 94 12/02/22 23:58 12/03/22 00:00 12/03/22 00:06 Temperature Pulse Rate 106 H 118 H Respiratory Rate 22 20 Blood Pressure 129/63 Pulse Oximetry 96 97 12/03/22 00:06 12/03/22 00:30 12/03/22 00:30 Temperature Pulse Rate 101 H 93 H Respiratory Rate 20 19 Blood Pressure 150/70 H Pulse Oximetry 93 93 12/03/22 01:00 12/03/22 01:01 12/03/22 01:30 Temperature Pulse Rate 95 H 94 H Respiratory Rate 23 22 Blood Pressure 160/74 H Pulse Oximetry 91 97 12/03/22 01:30 12/03/22 02:00 12/03/22 02:00 Temperature Pulse Rate 92 H 95 H Respiratory Rate 22 21 Blood Pressure 163/72 H Pulse Oximetry 94 95 12/03/22 02:30 12/03/22 02:30 12/03/22 03:00 Temperature Pulse Rate 98 H Respiratory Rate 24 Blood Pressure 162/74 H 155/82 H Pulse Oximetry 96 12/03/22 03:00 12/03/22 03:49 12/03/22 03:30 Temperature 98 F Pulse Rate 86 Respiratory Rate 23 Blood Pressure 163/74 H Pulse Oximetry 96 12/03/22 03:30 Temperature Pulse Rate 84 Respiratory Rate 20 Blood Pressure Pulse Oximetry 99 MDM - Fall Lab Data 12/02/22 19:50 12/02/22 19:50 Labs: Lab Results 12/02/22 12/02/22 12/02/22 Range/Units 19:50 19:50 19:50 WBC 3.8 L (4.5-11.0) X10^3/uL RBC 3.75 L (4.5-5.9) X10^6/uL Hgb 11.0 L (13.5-17.5) g/dL Hct 33.1 L (41-53) % MCV 88.1 (80-100) fL MCH 29.2 (26-34) PG MCHC 33.2 (30-36) % RDW 18.3 H (11.6-14.8) % Plt Count 103 L (150-400) X10^3/uL Neut % (Auto) 76.6 H (50-75) % Lymph % (Auto) 7.3 L (25-40) % Kerr % (Auto) 15.4 H (3-14) % Eos % (Auto) 0.4 L (2-4) % Baso % (Auto) 0.3 (0-2) % Neut # (Auto) 2900 (2643-0320) /uL Lymph # (Auto) 300 L (3079-6498) /uL Kerr # (Auto) 600 (0-900) /uL Eos # (Auto) 0 (0-450) /uL Baso # (Auto) 0 (0-100) /uL APTT (26-36) SECONDS Sodium 137 (137-145) mmol/L Potassium 4.2 (3.4-5.1) mmol/L Chloride 102 (98-107) mmol/L Carbon Dioxide 27 (22-32) mmol/L BUN 21 H (9-20) mg/dL Creatinine 0.78 (0.66-1.25) mg/dL Estimated GFR > 60 (>60) mL/min BUN/Creatinine Ratio 26.9 H (6-22) Glucose 139 H (80-110) mg/dL Lactate 1.2 (0.7-2.1) mmol/L Calcium 8.8 (8.4-10.2) mg/dL Total Bilirubin 0.4 (0.2-1.3) mg/dL AST 23 (17-59) IU/L ALT 14 (<50) IU/L Alkaline Phosphatase 64 (38-126) U/L Total Creatine Kinase 71 (55-170) U/L Troponin I 0.362 H* (0.01-0.034) ng/mL NT-Pro-B Natriuret Pep (<450) pg/mL Total Protein 7.8 (6.3-8.2) g/dL Albumin 4.2 (3.5-5.0) g/dL Globulin 3.6 (1.7-4.1) g/dL Albumin/Globulin Ratio 1.2 (1.0-2.8) Lipase 65 (23-300) U/L Procalcitonin (<0.5) ng/mL SARS-CoV-2 (PCR) (Negative) 12/02/22 12/02/22 12/02/22 Range/Units 19:50 19:50 19:50 WBC (4.5-11.0) X10^3/uL RBC (4.5-5.9) X10^6/uL Hgb (13.5-17.5) g/dL Hct (41-53) % MCV (80-100) fL MCH (26-34) PG MCHC (30-36) % RDW (11.6-14.8) % Plt Count (150-400) X10^3/uL Neut % (Auto) (50-75) % Lymph % (Auto) (25-40) % Kerr % (Auto) (3-14) % Eos % (Auto) (2-4) % Baso % (Auto) (0-2) % Neut # (Auto) (0179-3758) /uL Lymph # (Auto) (2475-5731) /uL Kerr # (Auto) (0-900) /uL Eos # (Auto) (0-450) /uL Baso # (Auto) (0-100) /uL APTT 34 (26-36) SECONDS Sodium (137-145) mmol/L Potassium (3.4-5.1) mmol/L Chloride (98-107) mmol/L Carbon Dioxide (22-32) mmol/L BUN (9-20) mg/dL Creatinine (0.66-1.25) mg/dL Estimated GFR (>60) mL/min BUN/Creatinine Ratio (6-22) Glucose (80-110) mg/dL Lactate (0.7-2.1) mmol/L Calcium (8.4-10.2) mg/dL Total Bilirubin (0.2-1.3) mg/dL AST (17-59) IU/L ALT (<50) IU/L Alkaline Phosphatase (38-126) U/L Total Creatine Kinase (55-170) U/L Troponin I (0.01-0.034) ng/mL NT-Pro-B Natriuret Pep 1120 H (<450) pg/mL Total Protein (6.3-8.2) g/dL Albumin (3.5-5.0) g/dL Globulin (1.7-4.1) g/dL Albumin/Globulin Ratio (1.0-2.8) Lipase (23-300) U/L Procalcitonin 0.16 (<0.5) ng/mL SARS-CoV-2 (PCR) (Negative) 12/02/22 12/02/22 Range/Units 21:53 23:40 WBC (4.5-11.0) X10^3/uL RBC (4.5-5.9) X10^6/uL Hgb (13.5-17.5) g/dL Hct (41-53) % MCV (80-100) fL MCH (26-34) PG MCHC (30-36) % RDW (11.6-14.8) % Plt Count (150-400) X10^3/uL Neut % (Auto) (50-75) % Lymph % (Auto) (25-40) % Kerr % (Auto) (3-14) % Eos % (Auto) (2-4) % Baso % (Auto) (0-2) % Neut # (Auto) (7638-5612) /uL Lymph # (Auto) (0343-8122) /uL Kerr # (Auto) (0-900) /uL Eos # (Auto) (0-450) /uL Baso # (Auto) (0-100) /uL APTT (26-36) SECONDS Sodium (137-145) mmol/L Potassium (3.4-5.1) mmol/L Chloride (98-107) mmol/L Carbon Dioxide (22-32) mmol/L BUN (9-20) mg/dL Creatinine (0.66-1.25) mg/dL Estimated GFR (>60) mL/min BUN/Creatinine Ratio (6-22) Glucose (80-110) mg/dL Lactate (0.7-2.1) mmol/L Calcium (8.4-10.2) mg/dL Total Bilirubin (0.2-1.3) mg/dL AST (17-59) IU/L ALT (<50) IU/L Alkaline Phosphatase (38-126) U/L Total Creatine Kinase (55-170) U/L Troponin I 0.344 H* (0.01-0.034) ng/mL NT-Pro-B Natriuret Pep (<450) pg/mL Total Protein (6.3-8.2) g/dL Albumin (3.5-5.0) g/dL Globulin (1.7-4.1) g/dL Albumin/Globulin Ratio (1.0-2.8) Lipase (23-300) U/L Procalcitonin (<0.5) ng/mL SARS-CoV-2 (PCR) Positive H (Negative) Imaging Data CT scan - chest: Radiologist's Impression: PROCEDURE:? CT ANGIO CHEST PE PROTOCOL ? INDICATIONS:? fall, + trop post surgery ? TECHNIQUE:? After the administration of intravenous contrast, 2 mm thick sections acquired from the pulmonary apices to the posterior costophrenic angles.? 3-dimensional maximum intensity projection (MIP) coronal and sagittal reformats were then acquired through the thorax.? For radiation dose reduction, the following was used:? automated exposure control, adjustment of mA and/or kV according to patient size.? ? COMPARISON:? [facility], CR, XR CHEST 1V, 02/17/2021, 4:42. ? FINDINGS:? Image quality:? Excellent.? ? Pulmonary arteries:? Pulmonary arteries are normal in size, and demonstrate no intraluminal filling defects to suggest central pulmonary embolism.? ? Lungs and pleura:? 8 mm fissural nodule seen on the right series 5, image 174. Slight patchy appearance is present within the left base.? No pleural effusions or pneumothorax. ?Central and peripheral airways are patent.? ? Mediastinum:? Heart size is normal, without pericardial effusion.? No mediastinal or hilar adenopathy.? Thoracic aorta is normal in caliber and enhancement.? Esophagus is normal in caliber, without hiatal hernia.? ? Bones and chest wall:? No suspicious bony lesions.? Ribs and thoracic spine appear intact throughout.? Thyroid gland is unremarkable.? No axillary or supraclavicular adenopathy.? ? Abdomen:? Visualized upper abdominal solid organs appear normal in the early arterial phase of enhancement.? ? IMPRESSION:? ? No pulmonary embolism. ? Slight patchy opacity in the left base possibly atelectasis.? Developing pneumonia cannot be excluded. ? 8 mm fissural nodule on the right as above.? No priors are available for comparison.? It is nonspecific.? Recommend interval follow-up as below. ? ? Fleischner Society criteria for SOLID lung nodule followup.? Nodule size (mm)Low-risk patientHigh-risk patient<6 (single or multiple)No routine followup.Optional CT at 12 months. 6-8 (single or multiple)CT at 6-12 months, then optional CT at 18-24 mo.CT at 6-12 months, then CT at 18-24 months.? >8 (single)CT, PET-CT, or biopsy at 3 months. Same as for low-risk pts.? >8 (multiple)CT at 3-6 months, then optional CT at 18-24 mo.CT at 3-6 months, then CT at 18-24 months.? Recommendations do not apply to lung cancer screening, patients with immunosuppression, or patients with known primary cancer. ? ? ? Dictated by: Tiffanie Hough M.D. on 12/02/2022 at 21:21 ?? Extremity x-ray #1: Radiologist's Impression: PROCEDURE:? XR KNEE LT 3V ? INDICATIONS:? pain prior surgery, FALL ? TECHNIQUE:? 3 views of the knee were acquired.? ? COMPARISON:? [facility], CR, XR KNEE LT 1TO2V, 10/04/2022, 10:49. ? FINDINGS:? ? Bones:? No fractures or dislocations.? No suspicious bony lesions.? Knee arthroplasty is present.? Hardware is intact without hardware fracture or periprosthetic lucency to suggest loosening.? Alignment is stable. ? Soft tissues:? Mild joint effusion.? No suspicious soft tissue calcifications.? ? ? IMPRESSION:? No visualized acute fracture or dislocation. However, if clinical concern and/or pain persist, short interval imaging followup in 7-10 days is recommended, as occult injury cannot be definitively excluded. ? ? Dictated by: Tiffanie Hough M.D. on 12/02/2022 at 21:04 ? ? Approved by: Tiffanie Hough M.D. on 12/02/2022 at 21:04 ? ECG Data Interpretation: Normal sinus rhythm rate 110 year interval 160 QRS [address] changes no T-wave inversions similar to previous in 2020 MDM Narrative Medical decision making narrative: Patient 82-year-old male history of hypertension hyperlipidemia diabetes presenting today with 2 falls. He previously had surgery back in September he has been doing physical therapy fairly active tho otherwise falling is abnormal for him. X-ray for his knee has been reviewed and is negative. He is found have a positive troponin 0.36 repeated at 0.34 he has no EKG changes and is asymptomatic. Not having any chest pain or shortness of breath. He previously had elevation in troponin when he had an infection and allergic like reaction back in 2020. CT chest does not show any pulmonary embolism her other cause for elevated troponin. He is ultimately found to be COVID positive likely causing his weakness, falls, and elevation in troponin. Labs have been reviewed positive COVID troponin 0.36 and 0.34, BNP 11 20 WBC is 3.8 Patient given aspirin started on heparin Initially spoke with Dr. Chaudhari on-call cardiology recommended patient be transferred for further cardiac evaluation Dr. Rush, cardiology at [address] updated on patient's symptoms test results (at this time COVID was not back) agree with transfer and admission to [facility] Dr. Ruano, hospitalist updated on patient's symptoms and COVID status accepts patient Discharge Plan Departure Patient Disposition: [facility] Clinical Impression: COVID-19, Non-ST elevation AR (NSTEMI) Prescriptions: No Action rosuvastatin 20 mg Tablet 20 mg PO DAILY oxycodone 5 mg tablet 5 mg PO Q4H PRN (Reason: pain) Qty: 40 0RF Rx Instructions: postop exempt ondansetron 4 mg tablet,disintegrating 4 mg PO Q8H PRN (Reason: nausea and vomiting) Qty: 5 1RF docusate sodium [Colace] 100 mg capsule 100 mg PO BID Qty: 30 1RF aspirin 81 mg tablet,delayed release (DR/EC) 81 mg PO BID Qty: 60 0RF polyethylene glycol 3350 [Miralax] 17 gram powder in packet 17 g PO BID Qty: 30 0RF oxycodone 5 mg Tablet 5 mg PO Q3H PRN (Reason: Pain, Moderate (4-6)) Qty: 30 0RF metformin 500 mg Tablet 250 mg PO BID amlodipine [Norvasc] 5 mg Tablet 5 mg PO DAILY metoprolol tartrate 50 mg Tablet 50 mg PO BID melatonin 3 mg Tablet 6 mg PO BEDTIME Qty: 90 0RF Referrals: Angela Calderon DO [Primary Care Provider] -
[2022-12-02 20:14] LABS: Add Manual Diff / Slide Review NO; Alanine Aminotransferase 14 IU/L (<50); Albumin 4.2 g/dL (3.5-5.0); Albumin Globulin Ratio 1.2 (1.0-2.8); Alkaline Phosphatase 64 U/L (38-126); Aspartate Aminotransferase 23 IU/L (17-59); BUN Creatinine Ratio 26.9 (6-22); Basophils Absolute Auto 0 /uL (0-100); Basophils Percent Auto 0.3 % (0-2); Bilirubin Total 0.4 mg/dL (0.2-1.3); Blood Urea Nitrogen 21 mg/dL (9-20); Calcium 8.8 mg/dL (8.4-10.2); Carbon Dioxide 27 mmol/L (22-32); Chloride 102 mmol/L (98-107); Creatine Kinase 71 U/L (55-170); Eosinophils Absolute Auto 0 /uL (0-450); Eosinophils Percent Auto 0.4 % (2-4); Estimated Glomerular Filt Rate > 60 mL/min (>60); Globulin 3.6 g/dL (1.7-4.1); Glucose 139 mg/dL (80-110); HEMOLYSIS < 15 (0-50); Hematocrit 33.1 % (41-53); Lipase 65 U/L (23-300); Lymphocytes Absolute Auto 300 /uL (1100-4500); Lymphocytes Percent Auto 7.3 % (25-40); Mean Corpuscular HGB Conc 33.2 % (30-36); Mean Corpuscular Hemoglobin 29.2 PG (26-34); Mean Corpuscular Volume 88.1 fL (80-100); Monocytes Absolute Auto 600 /uL (0-900); Monocytes Percent Auto 15.4 % (3-14); Neutrophils Absolute Auto 2900 /uL (1500-7000); Neutrophils Percent Auto 76.6 % (50-75); Platelet Count 103 X10^3/uL (150-400); Potassium 4.2 mmol/L (3.4-5.1); Red Blood Cell Count 3.75 X10^6/uL (4.5-5.9); Red Cell Distribution Width 18.3 % (11.6-14.8); Sodium 137 mmol/L (137-145); Total Protein 7.8 g/dL (6.3-8.2); White Blood Cell Count 3.8 X10^3/uL (4.5-11.0)
[2022-12-02 20:15] LABS: Lactate (Lactic Acid) 1.2 mmol/L (0.7-2.1)
[2022-12-02 20:28] LABS: Troponin I 0.362 ng/mL (0.01-0.034)
--- NOTE | 2022-12-02 20:29 | DI.CT.S_ITS ---
PROCEDURE: CT ANGIO CHEST PE PROTOCOL INDICATIONS: fall, + trop post surgery TECHNIQUE: After the administration of intravenous contrast, 2 mm thick sections acquired from the pulmonary apices to the posterior costophrenic angles. 3-dimensional maximum intensity projection (MIP) coronal and sagittal reformats were then acquired through the thorax. For radiation dose reduction, the following was used: automated exposure control, adjustment of mA and/or kV according to patient size. COMPARISON: [facility], CR, XR CHEST 1V, 02/17/2021, 4:42. FINDINGS: Image quality: Excellent. Pulmonary arteries: Pulmonary arteries are normal in size, and demonstrate no intraluminal filling defects to suggest central pulmonary embolism. Lungs and pleura: 8 mm fissural nodule seen on the right series 5, image 174. Slight patchy appearance is present within the left base. No pleural effusions or pneumothorax. Central and peripheral airways are patent. Mediastinum: Heart size is normal, without pericardial effusion. No mediastinal or hilar adenopathy. Thoracic aorta is normal in caliber and enhancement. Esophagus is normal in caliber, without hiatal hernia. Bones and chest wall: No suspicious bony lesions. Ribs and thoracic spine appear intact throughout. Thyroid gland is unremarkable. No axillary or supraclavicular adenopathy. Abdomen: Visualized upper abdominal solid organs appear normal in the early arterial phase of enhancement. IMPRESSION: No pulmonary embolism. Slight patchy opacity in the left base possibly atelectasis. Developing pneumonia cannot be excluded. 8 mm fissural nodule on the right as above. No priors are available for comparison. It is nonspecific. Recommend interval follow-up as below. Fleischner Society criteria for SOLID lung nodule followup. Nodule size (mm)Low-risk patientHigh-risk patient<6 (single or multiple)No routine followup.Optional CT at 12 months. 6-8 (single or multiple)CT at 6-12 months, then optional CT at 18-24 mo.CT at 6-12 months, then CT at 18-24 months. >8 (single)CT, PET-CT, or biopsy at 3 months. Same as for low-risk pts. >8 (multiple)CT at 3-6 months, then optional CT at 18-24 mo.CT at 3-6 months, then CT at 18-24 months. Recommendations do not apply to lung cancer screening, patients with immunosuppression, or patients with known primary cancer. Dictated by: Tiffanie Hough M.D. on 12/02/2022 at 21:21 Approved by: Tiffanie Hough M.D. on 12/02/2022 at 21:25
[2022-12-02 21:04] LABS: NT-proBNP (BNP-Adult 18+) 1120 pg/mL (<450)
[2022-12-02 21:12] LABS: Procalcitonin 0.16 ng/mL (<0.5)
[2022-12-02 22:22] LABS: PTT Partial Thromboplastin Tim 34 SECONDS (26-36)
[2022-12-02] MEDS: ASPIRIN 81 MG CHEW TAB 324 MG PO (22:23)
[2022-12-02 22:27] LABS: Troponin I 0.344 ng/mL (0.01-0.034)
[2022-12-02] MEDS: HEPARIN 5,000 UNIT/ML VIAL 5000 UNIT IV (22:31)
[2022-12-02] MEDS: HEPARIN DRIP 25,000 UNIT/500 ML IV.SOLN 20 UNIT IV (22:34)
[2022-12-03] VITALS (11 sets, daily range): BP systolic 129–163; BP diastolic 63–82; PULSE 84–118; RESP 19–24; TEMP 36.6; O2SAT 91–99
[2022-12-03 00:27] LABS: COVID19 -Nasal RAPID POSITIVE (Negative)
[2022-12-03] MEDS: LORazepam 2 MG/ML INJ 0.5 MG IV (00:43)
== END 2022-12-03 03:55 | disposition short-term general hospital (02) ==
PROVIDERS: Emergency Provider Emergency Medicine; PCP Family Medicine
DX: U07.1 COVID-19 (principal); I21.4 Non-ST elevation (NSTEMI) myocardial infarction; W01.0XXA Fall on same level from slipping, tripping and stumbling without subsequent striking against object, initial encounter
CPT/HCPCS: 36415; 71275; 73562; 80053; 82550; 83605; 83690; 83880; 84145; 84484; 85025; 85730; 87040; 87635; 93005; 93010; 96365; 96366; 96375; 99285; C9803; J1644; J2060; Q9967